=== PATIENT | male | born 1945 | race Caucasian/White ===

== ENCOUNTER 2017-03-18 10:09 | Inpatient (IN) | payer OTHER, MEDICARE ==
[~2017-03-18] VITALS: Ht 182.9 cm; Wt 63.0 kg
[2017-03-18] VITALS (8 sets, daily range): BP systolic 110–150; BP diastolic 68–92; PULSE 65–102; TEMP 36.3–36.7; O2SAT 90–98; BMI 18.1; BMI 19.0
[2017-03-18] MEDS ORDERED: POLYETHYLENE (MIRALAX) 17 GM PACK PO PRN (11:00)
[2017-03-18] MEDS ORDERED: ONDANSETRON INJ 2 MG/ML 2 ML VIAL IV PRN (11:00)
[2017-03-18] MEDS ORDERED: MAGNESIUM HYDROXIDE SUSP 30 ML UDC PO PRN (11:00)
[2017-03-18] MEDS ORDERED: ALUMINUM/MAGNESIUM/SIMETH (MAALOX MAX) 30 ML UDC PO PRN (11:00)
[2017-03-18] MEDS ORDERED: PATIENT'S ALLERGY INFO NEEDS ENTERED SCH (11:15)
[2017-03-18] MEDS ORDERED: ACETAMINOPHEN 325 MG TAB PO PRN (11:45)
[2017-03-18] MEDS ORDERED: PROC1TAB5 PO (12:09)
[2017-03-18] MEDS ORDERED: METO25TA56 PO (12:09)
[2017-03-18] MEDS ORDERED: SENNTAB23 PO (12:09)
[2017-03-18] MEDS ORDERED: MAGN400T6 PO (12:09)
[2017-03-18] MEDS ORDERED: OXYC-609 PO (12:09)
[2017-03-18] MEDS ORDERED: NAPR1TAB9 PO (12:09)
--- NOTE | 2017-03-18 12:44 | History and Physical ---
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 The patient also notes that he cannot lay flat. This makes his symptoms worse. He denies any other associated symptoms such as cough, fever, chest pain or pressure. He denies any dizziness. He denies any known history of heart disease. He reports eating and drinking normally. He is moving his bowels, but does note some constipation. Last bowel movement was yesterday. The patient was supposed to have his third round of chemotherapy today. He was directly admitted the hospital from his oncologist office with his complaint of shortness of breath. Past Medical/Surgical History Metastatic prostate cancer to lungs and liver Hypertension Family History Father in his 80s of cardiac arrest Social History Smoking Status: Former Smoker Alcohol Use: none Marital Status: Housing status: lives with significant other Allergies Coded Allergies: No Known Allergies (Unverified , 03/18/17) Home Medications Scheduled Magnesium Oxide (Mag-Ox), 400 MG PO DAILY Metoprolol Tartrate (Lopressor) (Lopressor), 1 TAB PO BID Naproxen (Aleve), 220 MG PO BID Prochlorperazine Maleate (Compazine), 1 TAB PO Q6 Sennosides-Docusate Sodium (Stool Softener), PO HS Scheduled PRN Oxycodone HCl (Oxycodone HCl), MG PO Q6H PRN for Pain Review of Systems 10 system review performed and negative unless noted in HPI or below Physical Exam Vital Signs Date Time Temp Pulse Resp B/P Pulse Ox O2 Delivery O2 Flow Rate FiO2 03/18/17 11:25 36.3 65 22 110/68 92 Room Air General Appearance: + mild distress (mildly dyspneic) Head: normocephalic Eyes: EOMI ENT: + pertinent finding (oral mucosa fairly moist.) Neck: no JVD Respiratory/Chest: + pertinent finding (diminished breath sounds at the bases bilaterally. No wheezing, rhonchi or crackles auscultated.) Cardiovascular: regular rate, rhythm Abdomen/GI: normal bowel sounds, non tender, soft Extremities/Musculoskelatal: no calf tenderness, no pedal edema Neurologic/Psych: no motor/sensory deficits, oriented x 3 Skin: warm/dry Diagnostics Laboratory Results Results Past 24 Hours Test 03/18/17 12:22 Range/Units Impression Assessment and Plan 71-year-old male directly admitted to the hospital from his oncologist office with complaints of dyspnea on exertion and orthopnea. shortness of breath-unfortunately concerning for malignant effusion -Admit to oncology floor -Check chest [id number] results, patient may need evaluation from thoracic surgery if the patient does indeed have a drainable malignant effusion -possibly check echo HTN -Continue metoprolol 75 mg BID Chronic kidney disease-Baseline creatinine appears to be around 1.5. The patient has been taking naproxen twice daily. -hold NSAIDS -PRP in AM DVT prophylaxis -Lovenox 40 mg subQ daily -TEDS, SCDs CODE STATUS -LEVEL V DO NO RESUSCITATE i personally examined pt and verified all jansen points w A [facility] PAC sob - mostly orthopnea. sent over by oncology due to worsening sob. CXR c/w lung mets (known) and malignant effusion (appears new) question of infiltrate, but shows no s/s of pneumonia/infectious pathology - check CRP and procalcitonin to confirm no need for abx malignant effusion - consult thoracic - d/w thoracic team. 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 Y/N: Yes Risk Level: Moderate Given or contraindicated: Enoxaparin (Lovenox)SQ, T.E.D. Stockings, SCD's
[2017-03-18] MEDS ORDERED: POTASSIUM CHLORIDE 10 MEQ TABCR PO ONE (12:45)
[2017-03-18] MEDS ORDERED: IV FLUIDS COMPLETED PRN (12:45)
--- NOTE | 2017-03-18 13:22 | DIAGNOSTIC IMAGING REPORT ---
CHEST 2 VIEWS ROUTINE CLINICAL HISTORY: shortness of breath COMPARISON STUDY: Outside CT scan dated 01-30 FINDINGS: The heart is borderline enlarged. There are bilateral pleural effusions left greater than right. There are multiple pulmonary nodules, statistically secondary to metastatic disease. There is a right perihilar airspace opacity, possibly representing a pneumonia..[ IMPRESSION: 1. Multiple pulmonary nodules, statistically secondary to metastatic disease 2. Bilateral pleural effusions left greater than right 3. Right perihilar airspace opacities possibly representing a pneumonia. Clinical and radiographic follow-up is recommended Electronically signed by: Stephen Avalos M.D. 03/18/2017 1:21 PM Dictated Date/Time: 03/18/2017 1:19 PM
[2017-03-18 13:54] LABS: INR 1.1 (0.9-1.1); PROTHROMBIN TIME (PATIENT) 11.4 SECONDS (9.0-12.0)
--- NOTE | 2017-03-18 15:34 | DIAGNOSTIC IMAGING REPORT ---
CHEST ONE VIEW PORTABLE CLINICAL HISTORY: Post thoracentesis x-ray COMPARISON STUDY: 03/18/2017 FINDINGS: There are multiple pulmonary nodules. There is a 55 mm right perihilar airspace opacity. There is elevation the right hemidiaphragm. There is evidence for interval left-sided thoracentesis. There is a left basilar pneumothorax with 35 mm of maximal pleural separation. A small residual left pleural effusion is suspected. There is a small subchronic right pleural effusion.[ IMPRESSION: Interval left-sided thoracentesis. 35mm left basilar pneumothorax. Electronically signed by: Stephen Avalos M.D. 03/18/2017 3:33 PM Dictated Date/Time: 03/18/2017 3:31 PM
--- NOTE | 2017-03-18 15:36 | OPERATIVE REPORT ---
DATE OF OPERATION: 03/18/2017 PROCEDURE NOTE DATE OF PROCEDURE: 03/18/2017. REASON FOR PROCEDURE: Left pleural effusion in a patient with prostate carcinoma which is metastatic. SURGEON: Dr. Vance. PATROL CONDUCTOR: Rishi Thurston PA-C. ANESTHESIA: Local. SPECIFICS OF PROCEDURE: With the patient seated an ultrasound was used to find a window in the left posterolateral and inferior aspect of the chest. He was prepped and draped in the usual sterile fashion. After appropriate timeout had been called a 25 gauge needle and 1% Xylocaine was used to raise the skin wheal. A large bore needle was used to anesthetize the deeper subcutaneous tissues and free flowing fluid was obtained. A guidewire was inserted through the needle and needle removed. A dilator was gently slid over the guidewire and removed and a triple lumen catheter was slid in 17 cm and 1000 mL of a light yellow fluid was drained. We could not get any more fluid and we removed the catheter. There was no bleeding. He was already breathing better by the conclusion of the case. He tolerated it very well. A chest x-ray is pending. I attest to the content of the Intraoperative Record and any orders documented therein. Any exceptio ns are noted below.
--- NOTE | 2017-03-18 15:38 | SURGICAL CONSULTATION ---
DATE OF CONSULTATION: 03/18/2017 REASON FOR CONSULTATION: Left pleural effusion. 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 The patient was found to have metastatic prostate cancer in his lungs and liver and had increasing dyspnea on exertion with orthopnea. He cannot lay flat. He denies pain. He has lost weight. Denies any GI symptoms except for some constipation. He is undergoing chemotherapy for his metastatic prostate cancer. In addition, he has a very large mass on his right flank. I assume this is due to metastatic cancer has been biopsied, although the patient's tells me that this is a cancer and they are not sure where it is from. I have been asked to comment on a left pleural effusion. Interestingly enough, I reviewed the CT scan of the abdomen and chest from 2 months ago which showed a right-sided effusion which was mild to moderate. He really had no left-sided fluid at that time. A chest x-ray done today shows a large layering left pleural effusion. I was asked to evaluate him for management of this effusion. PAST MEDICAL HISTORY: 1. Metastatic prostate carcinoma. 2. Metastases to the lung and liver. 3. Hypertension. PAST SURGICAL HISTORY: 1. Appendectomy. 2. Biopsy of right flank mass. MEDICATIONS: 1. Magnesium oxide. 2. Stool softeners. 3. Lopressor. 4. Naprosyn. 5. Compazine. ALLERGIES: No known drug allergies. SOCIAL HISTORY: The patient lives with his of almost 50 years. He had 1 son who was killed in a traumatic accident at age 24. The patient has never smoked cigarettes. He was in the [employer] for 3 years. 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 He likes to fish. He also is an avid follower of [employer] football. FAMILY MEDICAL HISTORY: The patient's father in his 80s and had coronary artery disease and myocardial infarction. His son a traumatic at age 24. He was unsure of the etiology of his mother's . REVIEW OF SYSTEMS: The patient states he has lost 15-20 pounds in the last 6 months. He has some swelling in his lower extremities, although he has very little today. He has been quite short of breath. He denies chest pain. He has had no fevers. He has some mild arthritic pain. NEUROLOGIC: Denies any symptoms such as amaurosis fugax, transient ischemic attack. He has had no skin breakdown. He has had no visual or auditory symptoms. PHYSICAL EXAMINATION: GENERAL: This is a 6 foot, 133-pound male who is awake, alert and conversant. He is jovial. HEENT: His extraocular movements are intact. Sclerae are anicteric. He appears to have some very mild exophthalmos in the left eye. He has no nasolabial flattening. His teeth are in poor repair. I do not see any obvious abscesses. He has no oral mucosal lesions. NECK: Supple. I do not detect any supraclavicular or cervical lymphadenopathy. He has no carotid bruits. He has no neck vein distention. LUNGS: Upon evaluation of his lungs, he has decreased breath sounds in the left base, relative to the right. He has a large mass measuring well over 10 cm of his right flank area above his iliac crest. There is a surgical incision which is well healed on top it. ABDOMEN: Otherwise soft. He has good bowel sounds. I do not detect evidence of abdominal aortic aneurysm. HEART: Has a regular rate and rhythm of his heart. EXTREMITIES: He has trace edema to his lower extremities and I can palpate dorsalis pedis pulses nicely. He has a lipoma in his left proximal biceps area. NEUROLOGICAL: He is awake, alert and oriented, has no obvious focal deficits. DATA: I reviewed a chest x-ray and he has a large left pleural effusion which is new. He also has multiple pulmonary nodules. ASSESSMENT AND PLAN: 1. Left pleural effusion in a patient with metastatic prostate carcinoma. We are going to do a thoracentesis and send it off. Should this reaccumulate, we will then consider a PleurX catheter. I am also going to order a CT scan after I drain him. He was unable to lay flat for CT scan earlier.
[2017-03-18] MEDS ORDERED: LEVALBUTEROL 0.63MG/3 ML NEB INH PRN (15:45)
[2017-03-18 16:06] LABS: PLEURAL FLUID TOTAL PROTEIN 2.8 g/dl
[2017-03-18 16:42] LABS: PLEURAL FLUID APPEARANCE CLEAR; PLEURAL FLUID COLOR STRAW; PLEURAL FLUID MONONUC RELAT 95.4 %; PLEURAL FLUID POLYNUC 4.6 %; PLEURAL FLUID SOURCE LEFT LUNG; PLEURAL FLUID WBC (A) 602 /uL
[2017-03-18] MEDS ORDERED: ENOXAPARIN 40 MG/0.4 ML SYR SQ SCH (17:00)
[2017-03-18] MEDS: PROCHLORPERAZINE MALEATE 10 MG TAB PO SCH (17:17)
[2017-03-18] MEDS ORDERED: NURSING VERBAL MED ORDER ONE (20:45)
[2017-03-18] MEDS ORDERED: ALBUT/IPRATROP 3MG/0.5MG NEB 3 ML VIAL INH PRN (20:45)
--- NOTE | 2017-03-18 20:52 | DIAGNOSTIC IMAGING REPORT ---
SINGLE VIEW CHEST CLINICAL HISTORY: Follow-up pneumothorax. FINDINGS: An AP, portable, upright chest radiograph is compared to study early the same day correlation is made with PET/CT dated 05/20/2016. 03/18/2017. The examination is degraded by portable technique and patient rotation. The heart is top normal for projection. There is atherosclerotic calcification of the thoracic aorta. Advanced emphysema and chronic interstitial thickening is similar to previous. Multifocal pulmonary metastatic disease in the right perihilar lesion are similar appearance to previous. There is a large left pneumothorax. This is increased in size from previous, and there is marked atelectasis of the left lung. Small pleural effusions are noted. The skeletal structures are osteopenic. The bony thorax is grossly intact. IMPRESSION: 1. There is a large left pneumothorax, significantly increased in size from earlier today. There is marked atelectasis of the left lung. Developing tension pneumothorax is not excluded. 2. Small pleural effusions. 3. Emphysema and multifocal pulmonary metastatic disease are again noted. Electronically signed by: Star Fernandes M.D. 03/18/2017 8:51 PM Dictated Date/Time: 03/18/2017 8:47 PM
[2017-03-18] MEDS ORDERED: LIDOCAINE HCL 1% 20 ML VIAL ONE (22:25)
[2017-03-18] MEDS: DOCUSATE SODIUM/SENNA 50/8.6MG TAB PO SCH (22:56)
[2017-03-18] MEDS: METOPROLOL TARTRATE 25 MG TAB PO SCH (22:57)
--- NOTE | 2017-03-18 23:04 | DIAGNOSTIC IMAGING REPORT ---
SINGLE VIEW CHEST CLINICAL HISTORY: Pneumothorax. Chest tube placement. FINDINGS: An AP, portable, upright chest radiograph is compared to studies performed earlier the same day 03/18/2017 and correlation is made with PET/CT dated 05/20/2016. The examination is degraded by portable technique and patient rotation. The heart is top normal for projection. There is atherosclerotic calcification of the thoracic aorta. Advanced emphysema and chronic interstitial thickening is similar to previous. Multifocal pulmonary metastatic disease and a right perihilar lesion are similar appearance to previous. A left sided chest tube is in place. The tip terminates near the apex. There has been significant decrease in size of the pneumothorax as compared to previous. A small residual pneumothorax is seen at the left lung base. Atelectasis is present at the left lung base. Small pleural effusions are noted. The skeletal structures are osteopenic. The bony thorax is grossly intact. Subcutaneous gas is noted along the left chest wall. IMPRESSION: 1. A left-sided chest tube has been placed. The left sided pneumothorax has significantly decreased in size, with only a small residual pneumothorax now seen at the left lung base. 2. Small pleural effusions. 3. Emphysema and multifocal pulmonary metastatic disease are again noted. Electronically signed by: Star Fernandes M.D. 03/18/2017 11:02 PM Dictated Date/Time: 03/18/2017 11:00 PM
[2017-03-19] VITALS (8 sets, daily range): BP systolic 92–136; BP diastolic 59–84; PULSE 68–88; TEMP 35.9–36.7; O2SAT 92–95; BMI 19.1
[2017-03-19] MEDS: PROCHLORPERAZINE MALEATE 10 MG TAB PO SCH ×5 (00:30→23:49)
--- NOTE | 2017-03-19 03:27 | OPERATIVE REPORT ---
DATE OF OPERATION: 03/18/2017 PREOPERATIVE DIAGNOSIS: Enlarging left pneumothorax. POSTOPERATIVE DIAGNOSIS: Same. PROCEDURE: Insertion of a 24-Sudanese left thoracostomy tube. SURGEON: Dr. Vance. ANESTHESIA: Local. SPECIFICS OF PROCEDURE: The patient in a supine position with his left arm raised, at approximately sixth interspace in the anterior axillary line. Skin wheal was raised, a 25 gauge needle, 1% Xylocaine after he had been prepped and draped in usual sterile fashion. A larger needle was used to go over the rib and anesthetized the deeper muscle tissues in the pleura. When air was aspirated back, a guidewire was inserted through the needle and needle removed. A 1 cm incision was made. The dilator was slid over the guidewire and then removed and a 24-Sudanese chest tube with a trocar was slid over the guidewire and the guidewire removed with the inner cannula. The patient tolerated this well. There was a cole of air. This was sutured in with heavy silk suture. There was an intermittent air leak, but the patient had immediate response with decreased shortness of breath and pain. Antimicrobial dressing was placed and this was taped into place. Chest x-ray is pending at this time. He tolerated it well. I attest to the content of the Intraoperative Record and any orders documented therein. Any exceptio ns are noted below.
[2017-03-19] MEDS: OXYCODONE/ACETAMINOPHEN 5-325 TAB PO PRN ×3 (05:45→16:45)
[2017-03-19 06:40] LABS: BUN/CREATININE RATIO 16.3 (10-20); CALCIUM 8.4 mg/dl (8.5-10.1); CREATININE 2.2 mg/dl (0.60-1.40); POTASSIUM 4.1 mmol/L (3.5-5.1)
--- NOTE | 2017-03-19 07:19 | DIAGNOSTIC IMAGING REPORT ---
CHEST ONE VIEW PORTABLE CLINICAL HISTORY: pleural effusion COMPARISON STUDY: 03/18/2017 FINDINGS: The cardiac and mediastinal contours remain stable. There is a left-sided chest tube. There are right perihilar and basal airspace opacities. There are nodular opacities the left lung base. Diffuse underlying pulmonary nodularity is suspected, consistent with the patient's known metastatic disease.. There is subcutaneous emphysema on the left. There is no pneumothorax.[ IMPRESSION: 1. Multifocal nodularity, consistent with the patient's known metastatic disease 2. Left-sided chest tube with increasing subcutaneous emphysema 3. Airspace opacities within the right perihilar region and right lower lung base, similar to the preceding study Electronically signed by: Stephen Avalos M.D. 03/19/2017 7:17 AM Dictated Date/Time: 03/19/2017 7:13 AM
[2017-03-19] MEDS: METOPROLOL TARTRATE 25 MG TAB PO SCH ×2 (08:00→19:56)
[2017-03-19] MEDS: MAGNESIUM OXIDE 400 MG TAB PO SCH (08:01)
--- NOTE | 2017-03-19 08:06 | SURGERY PROGRESS NOTE ---
DATE: 03/19/2017 DATE: 03/19/2017. Mr. Fuller was seen today. He tolerated chest tube insertion last night very well. I do not see an air leak today. He does have a small amount of subcutaneous emphysema. He drained 350 mL total of fluid last night, but he does not have an air leak. He is on room air and appears comfortable. We are going to push him to ambulate today with his walker. I discussed this case with Dr. Coles and due to his poor performance status and the nature of his malignancy, it is doubtful that any therapy will be offered.
--- NOTE | 2017-03-19 08:52 | Hospitalist Progress Note ---
Hospitalist Progress Note Date of Service March 19, 2017. (Danielle Engel ., PA-C) Subjective Pt evaluation today including: conversation w/ patient, physical exam, chart review, lab review, review of studies, review of inpatient medication list Voiding: no voiding problems, no incontinence Patient states he is currently feeling well. SOB has greatly improved. Admits to 8/10 pain at procedure site; Percocet order, discussed with patient about additional pain medications, wants to continue with Percocet only for now. Concerned about worsening LLE swelling over the last 1-2 days. Denies h/o of lower extremity swelling. Denies h/o DVT/PE. Aware of Dr. Medrano orders of ambulation. Patient admits to increased weakness with ambulation over the last couple of months. Patient denies any fever, chills, sweats, lightheadedness, dizziness, vision changes, CP, palpitations, wheezing, cough, abdominal pain, nausea, vomiting, diarrhea, urinary symptoms, melena, numbness/tingling, muscle/ joint pain, anxiety/depression, active bleeding, or new skin discoloration/ changes. (Danielle Engel ., PA-C) Medications Current Inpatient Medications Medications (Trade) Dose Ordered Sig/Gisel Route Start Time Stop Time Status Last Admin Dose Admin Al Hydrox/Mg Hydrox/Simethicone (Maalox Max Susp) 15 ml Q4H PRN PO 03/18/17 11:00 04/17/17 10:59 Magnesium Hydroxide (Milk Of Magnesia Susp) 30 ml Q6H PRN PO 03/18/17 11:00 04/17/17 10:59 Polyethylene (Miralax Powder Packet) 17 gm DAILY PRN PO 03/18/17 11:00 04/17/17 10:59 Ondansetron HCl (Zofran Inj) 4 mg Q6H PRN IV 03/18/17 11:00 04/17/17 10:59 Enoxaparin Sodium (Lovenox Inj) 40 mg Q24H SQ 03/18/17 17:00 04/17/17 16:59 03/18/17 17:17 40 MG Acetaminophen (Tylenol Tab) 650 mg Q4H PRN PO 03/18/17 11:45 04/17/17 11:44 Miscellaneous (Iv Fluids Completed) 1 ea PRN PRN N/A 03/18/17 12:45 03/18/18 12:44 Magnesium Oxide (Mag-Ox Tab) 400 mg DAILY PO 03/19/17 08:00 04/18/17 07:59 03/19/17 08:01 400 MG Prochlorperazine Maleate (Compazine Tab) 10 mg Q6 PO 03/18/17 18:00 04/17/17 17:59 03/19/17 05:25 10 MG Senna/Docusate Sodium (Senokot S Tab) 1 tab HS PO 03/18/17 21:00 04/17/17 20:59 03/18/17 22:56 1 TAB Metoprolol Tartrate (Lopressor Tab) 75 mg BID PO 03/18/17 20:00 04/17/17 19:59 03/18/17 22:57 75 MG Levalbuterol (Xopenex 0.63 Mg/ 3 Ml Neb) 0.63 mg Q6R PRN INH 03/18/17 15:45 04/17/17 15:44 03/18/17 19:27 0.63 MG Albuterol/ Ipratropium (Duoneb) 3 ml Q2H PRN INH 03/18/17 20:45 04/17/17 20:44 03/18/17 21:23 3 ML Oxycodone/ Acetaminophen (Percocet 5-325mg Tab) @ Q4H PRN PO 03/18/17 22:45 04/01/17 22:44 03/19/17 05:45 1 TAB (Danielle Engel, MIRIAMC) Objective Vital Signs Date Time Temp Pulse Resp B/P Pulse Ox O2 Delivery O2 Flow Rate FiO2 03/19/17 07:51 36.3 68 20 92/59 93 03/19/17 03:59 35.9 70 20 136/84 93 Room Air 03/19/17 00:18 36.2 78 20 106/65 92 Room Air 03/19/17 00:00 Room Air 03/18/17 22:52 36.4 89 18 112/71 98 Room Air 03/18/17 21:23 97 18 98 Nasal Cannula 1.0 03/18/17 20:21 36.7 102 20 150/92 94 Nasal Cannula 2.0 03/18/17 19:27 78 18 93 Room Air 03/18/17 16:07 77 16 94 Room Air 03/18/17 16:00 90 Room Air 03/18/17 14:46 36.7 81 16 133/81 90 Room Air 03/18/17 11:25 36.3 65 22 110/68 92 Room Air (Danielle Engel ., PA-C) Physical Exam General Appearance: no apparent distress, + thin Eyes: normal inspection, PERRL ENT: hearing grossly normal Neck: supple Respiratory/Chest: lungs clear, no respiratory distress, no accessory muscle use Cardiovascular: regular rate, rhythm Abdomen: normal bowel sounds, non tender, soft Extremities: no calf tenderness, + swelling (+1 pitting edema of LLE ) Neurologic/Psychiatric: alert, normal mood/affect, oriented x 3 Skin: warm/dry, no rash, + pallor (Danielle Engel ., PA-C) Laboratory Results Last 24 Hours Test 03/18/17 13:35 03/18/17 14:00 03/18/17 15:00 03/19/17 05:31 Prothrombin Time 11.4 SECONDS Prothromb Time International Ratio 1.1 Activated Partial Thromboplast Time 26.8 SECONDS Partial Thromboplastin Ratio 1.0 C-Reactive Protein 11.00 mg/dl Procalcitonin 0.37 ng/ml Pleural Fluid pH 7.51 Sodium Level 137 mmol/L Potassium Level 4.1 mmol/L Chloride Level 100 mmol/L Carbon Dioxide Level 28 mmol/L Anion Gap 9.0 mmol/L Blood Urea Nitrogen 36 mg/dl Creatinine 2.20 mg/dl Est Creatinine Clear Calc Drug Dose 27.1 ml/min Estimated GFR () 33.2 Estimated GFR (Non- 28.7 BUN/Creatinine Ratio 16.3 Random Glucose 131 mg/dl Calcium Level 8.4 mg/dl (Danielle Engel ., PA-C) Assessment and Plan 71-year-old male directly admitted to the hospital from his oncologist office with complaints of dyspnea on exertion and orthopnea. SOB, likely secondary to L pleural effusion from metastatic carcinoma: - Admit to oncology floor - Consult thoracic surgery, appreciate recommendations -- Thoracentesis on 03/19 with draining of 1000 mL- pleural fluid studies/ pathology pending -- Left thoracostomy tube secondary to left pneumothorax from thoracentesis -- Ambulation in hallways every shift - Percocet PRN q4 hrs for pain management - DuoNebs PRN Metastatic prostate cancer to lungs and liver: - Follows w/ Dr. Coles- oncology consulted, appreciate recommendations -- Suggest Palliative care consult- consulted, appreciate recommendations LLE swelling: - Check LLE U/S due to h/o malignancy and decreased activity level HTN: Continue Metoprolol 75 mg BID BLAIR on CKD, stage III-IV- baseline Cr ~ 1.5: - Hold NSAIDS - Follow PRP GI Prophylaxis: Maalox PRN, IV Zofran PRN, Colace and/or Milk of Mag PRN DVT prophylaxis: Lovenox 40 mg subQ daily, TEDS, SCDs CODE STATUS: LEVEL V DO NO RESUSCITATE Dispo: From home, lives with - PT/OT evaluations pending (Danielle Engel ., PA-C) PA Physician Supervision Note: I interviewed and examined the patient. Discussed with Danielle Engel PAC and agree with findings and plan as documented in the note. Any exceptions or clarifications are listed here: None 71 M with metastatic prostate cancer, malignant pleural effusion, s/p thoracentesis--> pneumothorax, and now chest tube palliative care consult and following Pt is understanding of condition vitals noted right chest decreased breath sounds supportive care for pneumothorax, coordinate symptom relief with palliative care Documented By: Matt Jacome (Matt Jacome M.D.)
--- NOTE | 2017-03-19 09:39 | Oncology Consultation ---
Oncology/Heme Consultation Date of Consultation: March 19, 2017. Attending Physician: Marvin Bliss D.O. Reason for Consultation: History of carcinoma unknown primary History of Present Illness Mr. Fuller is a 71-year-old gentleman who lives in at [facility]. He was new to our clinic on February 19. He was transferred essentially from [facility]. His oncologic story is that he has had a gradually enlarging right lower thoracic chest wall mass for the past few months. 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 A number of histochemical stains were done but ultimately it was felt to be the same that is a carcinoma of unknown primary. Interestingly along the way the patient had a very high alpha-fetoprotein. In addition he has had a very mild elevation in his calcium. He is always demonstrated very mild renal insufficiency with elevations in his creatinine of 1.5-1.7. He was treated in our clinic with a combination of gemcitabine and low- dose cis-upper sk[place] with the last treatment being given March 04. He was scheduled to be retreated again yesterday when it was clear that he had declined clinically and he also complained of severe shortness of breath. In fact he could not lie back without losing his breath. His performance status is easily graded at 3.0 now. He states he moves around the house but just in the examining room he had to be helped from the wheelchair he was in to the examining table and was very unsteady on his feet. He denied fever. His pain seems fairly well under control. CT scans that have been done and are downloaded into our system show osseous metastasis as well as pulmonary and liver involvement. Past Medical/Surgical History Renal sufficiency Carcinoma unknown primary new left Pleural effusion Family History His brother has a history of prostate carcinoma and there is a history of skin cancer in the family Social History Former smoker. He denies significant alcohol usage Smoking Status: Former Smoker Alcohol Use: none Marital Status: Allergies Coded Allergies: No Known Allergies (Unverified , 03/18/17) Home Medications Scheduled Magnesium Oxide (Mag-Ox), 400 MG PO DAILY Metoprolol Tartrate (Lopressor) (Lopressor), 1 TAB PO BID Naproxen (Aleve), 220 MG PO BID Prochlorperazine Maleate (Compazine), 1 TAB PO Q6 Sennosides-Docusate Sodium (Stool Softener), PO HS Scheduled PRN Oxycodone HCl (Oxycodone HCl), MG PO Q6H PRN for Pain Current Inpatient Medications Current Inpatient Medications Medications (Trade) Dose Ordered Sig/Gisel Route Start Time Stop Time Status Last Admin Dose Admin Al Hydrox/Mg Hydrox/Simethicone (Maalox Max Susp) 15 ml Q4H PRN PO 03/18/17 11:00 04/17/17 10:59 Magnesium Hydroxide (Milk Of Magnesia Susp) 30 ml Q6H PRN PO 03/18/17 11:00 04/17/17 10:59 Polyethylene (Miralax Powder Packet) 17 gm DAILY PRN PO 03/18/17 11:00 04/17/17 10:59 Ondansetron HCl (Zofran Inj) 4 mg Q6H PRN IV 03/18/17 11:00 04/17/17 10:59 Enoxaparin Sodium (Lovenox Inj) 40 mg Q24H SQ 03/18/17 17:00 04/17/17 16:59 03/18/17 17:17 40 MG Acetaminophen (Tylenol Tab) 650 mg Q4H PRN PO 03/18/17 11:45 04/17/17 11:44 Miscellaneous (Iv Fluids Completed) 1 ea PRN PRN N/A 03/18/17 12:45 03/18/18 12:44 Magnesium Oxide (Mag-Ox Tab) 400 mg DAILY PO 03/19/17 08:00 04/18/17 07:59 03/19/17 08:01 400 MG Prochlorperazine Maleate (Compazine Tab) 10 mg Q6 PO 03/18/17 18:00 04/17/17 17:59 03/19/17 05:25 10 MG Senna/Docusate Sodium (Senokot S Tab) 1 tab HS PO 03/18/17 21:00 04/17/17 20:59 03/18/17 22:56 1 TAB Metoprolol Tartrate (Lopressor Tab) 75 mg BID PO 03/18/17 20:00 04/17/17 19:59 03/18/17 22:57 75 MG Levalbuterol (Xopenex 0.63 Mg/ 3 Ml Neb) 0.63 mg Q6R PRN INH 03/18/17 15:45 04/17/17 15:44 03/18/17 19:27 0.63 MG Albuterol/ Ipratropium (Duoneb) 3 ml Q2H PRN INH 03/18/17 20:45 04/17/17 20:44 03/18/17 21:23 3 ML Oxycodone/ Acetaminophen (Percocet 5-325mg Tab) @ Q4H PRN PO 03/18/17 22:45 04/01/17 22:44 03/19/17 05:45 1 TAB Review of Systems Constitutional: Negative for, night sweats, or fever. His states his appetite is quite good. He appears to have lost quite a bit of weight amount unknown Eyes: Negative for event change of vision ENT: Negative for epistaxis, nasal discharge, sore throat, or deafness Cardiovascular: Negative for chest pain, palpitations, dizziness, diaphoresis Respiratory: Positive for shortness of breath negative for hemoptysis negative for fever Gastrointestinal: Negative for diarrhea, hematemesis, melena, nausea, vomiting , or dyspepsia Integumentary (skin): Negative for rash or jaundice discoloration Genitourinary: Negative for urinary frequency, hematuria, or dysuria Neurological: Negative for weakness, seizure activity, headache, or dizziness Lymphatic/Hematologic: Negative for petechiae, bleeding or new adenopathy Musculoskeletal: Negative for new joint or back pain. He continues to have a very protuberant at least 7 or 8 cm mass that extends from the right chest wall Allergic/Immunologic: Negative for unusual rash or pruritis. Physical Exam Date Time Temp Pulse Resp B/P Pulse Ox O2 Delivery O2 Flow Rate FiO2 03/19/17 07:51 36.3 68 20 92/59 93 03/19/17 03:59 35.9 70 20 136/84 93 Room Air 03/19/17 00:18 36.2 78 20 106/65 92 Room Air 03/19/17 00:00 Room Air 03/18/17 22:52 36.4 89 18 112/71 98 Room Air 03/18/17 21:23 97 18 98 Nasal Cannula 1.0 03/18/17 20:21 36.7 102 20 150/92 94 Nasal Cannula 2.0 03/18/17 19:27 78 18 93 Room Air 03/18/17 16:07 77 16 94 Room Air 03/18/17 16:00 90 Room Air 03/18/17 14:46 36.7 81 16 133/81 90 Room Air 03/18/17 11:25 36.3 65 22 110/68 92 Room Air Constitutional: vitals are stable. Thin pleasant gentleman oxygen ongoing. Sallow appearing. Performance status easily graded at 3.0 ECOG scale Eyes: Eyes are TUNDE EOMI without conjuctival erythema or icterus. ENT: External examination was negative for masses. Neck: Negative for masses or palpable thyromegaly Respiratory: Lung sounds were generally clear bilaterally when seen today and is status post thoracentesis. I chest tube is now in place in the left chest Cardiovascular: Heart was RRR without significant murmur, gallops aoe rubs Gastrointestinal: No palpable hepatic or splenomegaly. The abdomen was soft with normal bowel sounds. Lymphatic system: there was no palpable peripheral lymphadenopathy Musculoskeletal System: The musculoskeletal system seemed concordant with age. Skin: The skin was negative for jaundice. Sallow appearing Neurologic exam: The exam was negative for any focal findings. Deep tendon reflexes were equal and symmetrical. Psychiatric exam: Was essentially negative with normal mood and effect. Extremities: Negative for significant edema Laboratory Results Last 24 Hours Test 03/18/17 13:35 03/18/17 14:00 03/18/17 15:00 03/19/17 05:31 Prothrombin Time 11.4 SECONDS Prothromb Time International Ratio 1.1 Activated Partial Thromboplast Time 26.8 SECONDS Partial Thromboplastin Ratio 1.0 C-Reactive Protein 11.00 mg/dl Procalcitonin 0.37 ng/ml Pleural Fluid pH 7.51 Sodium Level 137 mmol/L Potassium Level 4.1 mmol/L Chloride Level 100 mmol/L Carbon Dioxide Level 28 mmol/L Anion Gap 9.0 mmol/L Blood Urea Nitrogen 36 mg/dl Creatinine 2.20 mg/dl Est Creatinine Clear Calc Drug Dose 27.1 ml/min Estimated GFR () 33.2 Estimated GFR (Non- 28.7 BUN/Creatinine Ratio 16.3 Random Glucose 131 mg/dl Calcium Level 8.4 mg/dl Assessment & Plan He was admitted from our clinic yesterday because of the severe shortness of breath. This is a carcinoma of unknown primary possibly adenocarcinoma with diffuse metastatic disease. 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 He has received small doses of cis- upper [place] on 2 occasions along with gemcitabine at a time when his creatinine was 1.5-1.6 and an acceptable GFR. Yesterday he was more short of breath. He has known pulmonary, osseous, as well as liver involvement. Yesterday's chest x- ray reflected a new left pleural effusion that has been drained. It does not appear to be infected. Cytologies are currently pending. His performance status has deteriorated quite a bit. The mass on his back although feeling perhaps slightly softer remains the same in dimensions. We will await the cytology. I suspect that it does represent progression of disease. This along with his overall performance status would then preclude further chemotherapy in that further therapy would not be helpful with a predictable worsening of his quality of life. Purely supportive measures and approach should be pursued. I brought this up to he and his today. He seemed accepting for the concept of hospice however his was reluctant at this point. At this juncture I would ask palliative care to become involved. We will continue to follow with you
--- NOTE | 2017-03-19 11:33 | DIAGNOSTIC IMAGING REPORT ---
ULTRASOUND LEFT LOWER EXTREMITY VENOUS CLINICAL HISTORY: Left leg swelling. COMPARISON STUDY: No priors. TECHNIQUE: Real-time, grayscale, and color Doppler sonography of the deep veins of the left lower extremity was performed from the inguinal crease to the calf. Compression and augmentation were utilized. FINDINGS: There is no sonographic evidence of deep venous thrombosis identified in the left lower extremity. The common femoral, superficial femoral, and popliteal veins are patent and normally compressible. The greater saphenous vein and the profunda femoris vein at the junction with the common femoral vein are clear. The visualized calf veins are patent. IMPRESSION: There is no sonographic evidence of deep venous thrombosis identified in the left lower extremity. Electronically signed by: Star Fernandes M.D. 03/19/2017 11:32 AM Dictated Date/Time: 03/19/2017 11:32 AM
--- NOTE | 2017-03-19 16:01 | Palliative Care Consultation ---
Consultation Date of Consultation: March 19, 2017. Requesting Physician: Danielle Engel PA-C Attending Physician: Dr. Jacome Reason for Consultation: Goals of care History of Present Illness This 71 year old male patient presented to [facility] as a direct admit from oncologist's office with c/o increased SOB. Patient has a history of metastatic carcinoma, unknown origin, in the liver, lungs and bone. History obtained from record, patient, and his , Merlene. Apparently about a year ago the patient was diagnosed with what they thought was prostate cancer-- was on Lupron shots every three months and was to have radiation beads placed. He was doing fairly well until a few months ago when he was found to have a large right lower thoracic mass. Patient ended up going to [facility] where a biopsy of the mass and series of histochemical stains were done. Biopsy showed adenocarcinoma but a primary source could not be determined. He was transferred from [place] to home and care transferred to cancer center here at [facility]. He was started on low dose cis-yankton, last treatment was March 04. Unfortunately, the patient has had a significant decline and an increase in SOB. He was to have his next treatment yesterday, but was subsequently directly admitted to hospital from the oncologist's office. He underwent thoracentesis by Dr. Vance for a left pleural effusion, developed a pneumothorax after, and then had left chest tube placed. Pleural fluid pathology is pending-- could be malignant. Patient's prognosis is rather poor at this point. Due to his functional status, he will not be receiving any further chemotherapy. Palliative care consulted. I met with the patient and his , Merlene, in room 404. He is tired, but awake and oriented x4. C/o pain 6/10 in left side at pleur-X site. He otherwise has no symptoms, and was not having pain throughout this process before chest tube insertion. Patient states he knows his condition is terminal, agrees. is resistant to the idea of hospice as the stated, "That, in my eyes, just means you're giving up." I explained hospice more in depth, and they agreed that their goals are consistent with hospice philosophy. Patient's goal is to be at home for the remainder of his life, be as comfortable as possible, and to stay out of the hospital. Past Medical/Surgical History Medical History: Renal insufficiency Metastatic carcinoma, primary unknown Social History Smoking Status: Former Smoker History of Alcohol Use: Yes (beer occasionally) Marital Status: Housing Status: lives with significant other Review of Systems Constitutional: + weakness Respiratory: + dyspnea on exertion, No dyspnea at rest, No wheezing Cardiac: No chest pain, No edema Abdomen: No nausea, No pain, No vomiting Psychiatric: No anxiety Allergies Coded Allergies: No Known Allergies (Unverified , 03/18/17) Medications Current Inpatient Medications Medications (Trade) Dose Ordered Sig/Gisel Route Start Time Stop Time Status Last Admin Dose Admin Al Hydrox/Mg Hydrox/Simethicone (Maalox Max Susp) 15 ml Q4H PRN PO 03/18/17 11:00 04/17/17 10:59 Magnesium Hydroxide (Milk Of Magnesia Susp) 30 ml Q6H PRN PO 03/18/17 11:00 04/17/17 10:59 Polyethylene (Miralax Powder Packet) 17 gm DAILY PRN PO 03/18/17 11:00 04/17/17 10:59 Ondansetron HCl (Zofran Inj) 4 mg Q6H PRN IV 03/18/17 11:00 04/17/17 10:59 Acetaminophen (Tylenol Tab) 650 mg Q4H PRN PO 03/18/17 11:45 04/17/17 11:44 Miscellaneous (Iv Fluids Completed) 1 ea PRN PRN N/A 03/18/17 12:45 03/18/18 12:44 Magnesium Oxide (Mag-Ox Tab) 400 mg DAILY PO 03/19/17 08:00 04/18/17 07:59 03/19/17 08:01 400 MG Prochlorperazine Maleate (Compazine Tab) 10 mg Q6 PO 03/18/17 18:00 04/17/17 17:59 03/19/17 12:08 10 MG Senna/Docusate Sodium (Senokot S Tab) 1 tab HS PO 03/18/17 21:00 04/17/17 20:59 03/18/17 22:56 1 TAB Metoprolol Tartrate (Lopressor Tab) 75 mg BID PO 03/18/17 20:00 04/17/17 19:59 03/18/17 22:57 75 MG Levalbuterol (Xopenex 0.63 Mg/ 3 Ml Neb) 0.63 mg Q6R PRN INH 03/18/17 15:45 04/17/17 15:44 03/18/17 19:27 0.63 MG Albuterol/ Ipratropium (Duoneb) 3 ml Q2H PRN INH 03/18/17 20:45 04/17/17 20:44 03/18/17 21:23 3 ML Oxycodone/ Acetaminophen (Percocet 5-325mg Tab) @ Q4H PRN PO 03/18/17 22:45 04/01/17 22:44 03/19/17 12:55 1 TAB Enoxaparin Sodium (Lovenox Inj) 30 mg Q24H SQ 03/19/17 17:00 04/18/17 16:59 Enteral Nutritional Formula (Boost Plus Vanilla) 1 can TIDM PO 03/19/17 17:00 04/18/17 16:59 Physical Exam Date Time Temp Pulse Resp B/P Pulse Ox O2 Delivery O2 Flow Rate FiO2 03/19/17 13:15 94 Room Air 03/19/17 11:57 36.1 77 14 102/69 92 Room Air 03/19/17 08:00 Room Air 03/19/17 07:51 36.3 68 20 92/59 93 03/19/17 03:59 35.9 70 20 136/84 93 Room Air 03/19/17 00:18 36.2 78 20 106/65 92 Room Air 03/19/17 00:00 Room Air 03/18/17 22:52 36.4 89 18 112/71 98 Room Air 03/18/17 21:23 97 18 98 Nasal Cannula 1.0 03/18/17 20:21 36.7 102 20 150/92 94 Nasal Cannula 2.0 03/18/17 19:27 78 18 93 Room Air 03/18/17 16:07 77 16 94 Room Air 03/18/17 16:00 90 Room Air General Appearance: no apparent distress, + cachetic, + thin, + pertinent finding (chronically ill-appearing) ENT: hearing grossly normal Neck: supple, no JVD Respiratory: no respiratory distress, + decreased breath sounds (left > right) , + crackles (few, fine in left lower lobe), + pertinent finding (subq air around chest tube) Cardiovascular: regular rate, rhythm, no edema Abdomen: normal bowel sounds, non tender, soft Musculoskeletal: pertinent finding (deconditioned) Neurologic/Psychiatric: alert, normal mood/affect, oriented x 3 Skin: + jaundice Laboratory Results Last 24 Hours Test 03/19/17 05:31 Sodium Level 137 mmol/L Potassium Level 4.1 mmol/L Chloride Level 100 mmol/L Carbon Dioxide Level 28 mmol/L Anion Gap 9.0 mmol/L Blood Urea Nitrogen 36 mg/dl Creatinine 2.20 mg/dl Est Creatinine Clear Calc Drug Dose 27.1 ml/min Estimated GFR () 33.2 Estimated GFR (Non- 28.7 BUN/Creatinine Ratio 16.3 Random Glucose 131 mg/dl Calcium Level 8.4 mg/dl Assessment & Plan Palliative Performance Scale: 50 % Problem list: SOB Pain, right side at chest tube site Metastatic carcinoma- liver, lungs, bone. Unknown primary Left pleural effusion- ?malignant, s/p thoracentesis- pathology pending. Developed pneumothorax- s/p left chest tube insertion. Large right lower thoracic mass Low BMI Poor functional status, weakness Goals of care (Z51.5) Palliative care plan: discussed with patient, Merlene, and Dr. Jacome. -DNR/DNI per previous discussion. -Currently seeking any treatment that will make the patient feel better but also prolong life. However, patient and his understand that his cancer is terminal and that he is no longer going to receive chemotherapy or curative treatment. -Goal is for patient to be at home (adamant about not wanting a long term or to be in the hospital) after this hospitalization, to be comfortable, and to be as functional as possible. -Currently pain is 6/10. Patient does not want to be sedated by narcotics. His only pain is related to the left chest tube-- did not have any pain prior to hospitalization. He has Percocet on profile. Recommend adding lidoderm patches to the left side/ribs around chest tube site. Could add fentanyl patch 12mcg/hr if needed. -Dr. Vance following- unsure if Pleur-X would be needed in the future? -Long discussion about the hospice benefit and their philosophy of care. , Merlene, was initially resistant to this idea, but after our discussion she is considering it. -Patient denies any further symptoms. -No living will or POLST-- will continue this discussion Thank you kindly for this consult. I will continue to follow.
[2017-03-19] MEDS: ENOXAPARIN 30 MG/0.3 ML SYR SQ SCH (16:46)
[2017-03-19] MEDS: LIDODERM (LIDOCAINE) PATCH 5% TD SCH (16:59)
[2017-03-19] MEDS: BOOST PLUS VANILLA PO SCH ×2 (17:30)
[2017-03-19] MEDS ORDERED: HYDROmorphone INJ 1 MG/ML SYR IV STA (18:11)
[2017-03-19] MEDS ORDERED: LORAZEPAM 0.5 MG TAB PO PRN (18:15)
[2017-03-19] MEDS ORDERED: ACETAMINOPHEN IV 650 MG in EMPTY BAG 0 ML IV PRN (18:15)
[2017-03-19] MEDS ORDERED: HYDROmorphone INJ 1 MG/ML SYR IV PRN ×2 (18:15)
[2017-03-19] MEDS ORDERED: KETOROLAC TROMETHAMINE 15 MG/ML VIAL IV PRN (18:15)
[2017-03-19] MEDS ORDERED: LORAZEPAM 2 MG/ML 1 ML VIAL IV PRN ×2 (18:15)
[2017-03-19] MEDS: TRAMADOL HCL 50 MG TAB PO PRN ×2 (18:24→22:36)
[2017-03-19] MEDS ORDERED: LORAZEPAM INJ 1 MG in SYRINGE 0.5 ML IV PRN (18:30)
[2017-03-19] MEDS ORDERED: LORAZEPAM INJ 0.5 MG in SYRINGE 0.75 ML IV PRN (18:30)
[2017-03-19] MEDS: DOCUSATE SODIUM/SENNA 50/8.6MG TAB PO SCH (19:55)
[2017-03-20] VITALS (7 sets, daily range): BP systolic 95–133; BP diastolic 64–86; PULSE 73–89; TEMP 36.2–36.9; O2SAT 90–93; BMI 19.5
[2017-03-20] MEDS: PROCHLORPERAZINE MALEATE 10 MG TAB PO SCH ×3 (05:55→17:40)
[2017-03-20 06:23] LABS: HEMATOCRIT 25.6 % (42-52); MEAN CELL VOLUME 95.9 fL (80-100); MEAN CORPUSCULAR HEMOGLOBIN 31.1 pg (25-34); MEAN CORPUSCULAR HGB CONC 32.4 g/dl (32-36); MEAN PLATELET VOLUME 8.8 fL (7.4-10.4); PLATELET COUNT 568 K/uL (130-400); RED BLOOD COUNT 2.67 M/uL (4.7-6.1); WHITE BLOOD COUNT 11.92 K/uL (4.8-10.8)
[2017-03-20 06:52] LABS: BUN/CREATININE RATIO 16.5 (10-20); CALCIUM 8.4 mg/dl (8.5-10.1); CREATININE 2.5 mg/dl (0.60-1.40); POTASSIUM 4.6 mmol/L (3.5-5.1)
--- NOTE | 2017-03-20 07:41 | DIAGNOSTIC IMAGING REPORT ---
CHEST ONE VIEW PORTABLE CLINICAL HISTORY: Pneumothorax. COMPARISON STUDY: Chest radiograph March 19, 2017. FINDINGS: A left chest tube remains in place. No pneumothorax is visualized. There is subcutaneous gas within the left chest wall. This was shown on prior exam. A small right pleural effusion is likely present. There are bibasilar opacities. Numerous pulmonary nodules representing known metastatic disease. IMPRESSION: 1. Left chest tube in place. No pneumothorax. 2. Small right pleural effusion and bibasilar opacities. 2. Pulmonary nodules consistent with metastatic disease. Electronically signed by: Jone Alvarado M.D. 03/20/2017 7:40 AM Dictated Date/Time: 03/20/2017 7:37 AM
[2017-03-20] MEDS: BOOST PLUS VANILLA PO SCH ×6 (08:00→17:00)
[2017-03-20] MEDS ORDERED: SODIUM CHLORIDE 0.9% 1000ML 1,000 ML IV SCH (08:30)
--- NOTE | 2017-03-20 08:30 | Hospitalist Progress Note ---
Hospitalist Progress Note Date of Service March 20, 2017. (Danielle Engel ., PA-C) Subjective Pt evaluation today including: conversation w/ patient, conversation w/ family (), physical exam, chart review, lab review, review of studies, conversation w/ configuration management consultant (Dr. Vance ), review of inpatient medication list Voiding: no voiding problems, no incontinence Patient states he is feeling well. Pain is currently 0/10; discussed pain regimen. states patient slept well throughout night. Last BM per patient was 5/5. Encouraged adequate intake. +fatigued. Patient denies any fever, chills , sweats, lightheadedness, dizziness, vision changes, CP, palpitations, edema, SOB, wheezing, cough, abdominal pain, nausea, vomiting, diarrhea, urinary symptoms, melena, numbness/tingling, weakness, muscle/joint pain, anxiety/ depression, active bleeding, or new skin discoloration/changes. (Danielle Engel ., PA-C) Medications Current Inpatient Medications Medications (Trade) Dose Ordered Sig/Gisel Route Start Time Stop Time Status Last Admin Dose Admin Al Hydrox/Mg Hydrox/Simethicone (Maalox Max Susp) 15 ml Q4H PRN PO 03/18/17 11:00 04/17/17 10:59 Magnesium Hydroxide (Milk Of Magnesia Susp) 30 ml Q6H PRN PO 03/18/17 11:00 04/17/17 10:59 Polyethylene (Miralax Powder Packet) 17 gm DAILY PRN PO 03/18/17 11:00 04/17/17 10:59 Ondansetron HCl (Zofran Inj) 4 mg Q6H PRN IV 03/18/17 11:00 04/17/17 10:59 Acetaminophen (Tylenol Tab) 650 mg Q4H PRN PO 03/18/17 11:45 04/17/17 11:44 Miscellaneous (Iv Fluids Completed) 1 ea PRN PRN N/A 03/18/17 12:45 03/18/18 12:44 Magnesium Oxide (Mag-Ox Tab) 400 mg DAILY PO 03/19/17 08:00 04/18/17 07:59 03/19/17 08:01 400 MG Prochlorperazine Maleate (Compazine Tab) 10 mg Q6 PO 03/18/17 18:00 04/17/17 17:59 03/20/17 05:55 10 MG Senna/Docusate Sodium (Senokot S Tab) 1 tab HS PO 03/18/17 21:00 04/17/17 20:59 03/19/17 19:55 1 TAB Metoprolol Tartrate (Lopressor Tab) 75 mg BID PO 03/18/17 20:00 04/17/17 19:59 03/18/17 22:57 75 MG Levalbuterol (Xopenex 0.63 Mg/ 3 Ml Neb) 0.63 mg Q6R PRN INH 03/18/17 15:45 04/17/17 15:44 03/18/17 19:27 0.63 MG Albuterol/ Ipratropium (Duoneb) 3 ml Q2H PRN INH 03/18/17 20:45 04/17/17 20:44 03/18/17 21:23 3 ML Oxycodone/ Acetaminophen (Percocet 5-325mg Tab) @ Q4H PRN PO 03/18/17 22:45 04/01/17 22:44 03/19/17 16:45 1 TAB Enoxaparin Sodium (Lovenox Inj) 30 mg Q24H SQ 03/19/17 17:00 04/18/17 16:59 03/19/17 16:46 30 MG Enteral Nutritional Formula (Boost Plus Vanilla) 1 can TIDM PO 03/19/17 17:00 04/18/17 16:59 03/19/17 17:30 1 CAN Lidocaine (Lidoderm Patch 5%) 1 patch QAM TD 03/20/17 08:00 04/19/17 07:59 03/19/17 16:59 1 PATCH Miscellaneous (Remove Lidoderm Patch) 1 ea DAILY@2000 N/A 03/20/17 20:00 04/19/17 19:59 Tramadol HCl 50 mg 50 mg Q4H PRN PO 03/19/17 16:30 04/18/17 16:29 03/19/17 22:36 50 MG Acetaminophen/ Empty Bag (Ofirmev Iv/ Empty Iv Bag 100ml) 65 ml @ 260 mls/hr Q6H PRN IV 03/19/17 18:15 04/18/17 18:14 Ketorolac Tromethamine (Toradol Inj) 15 mg Q6H PRN IV 03/19/17 18:15 03/24/17 18:14 Hydromorphone HCl (Dilaudid Inj) 0.5 mg Q4 PRN IV 03/19/17 18:15 04/02/17 18:14 Hydromorphone HCl (Dilaudid Inj) 1 mg Q4 PRN IV 03/19/17 18:15 04/02/17 18:14 Lorazepam (Ativan Inj) 1 mg Q4H PRN IV 03/19/17 18:15 04/18/17 18:14 Lorazepam (Ativan Inj) 0.5 mg Q4H PRN IV 03/19/17 18:15 04/18/17 18:14 Lorazepam 0.5 mg 0.5 mg Q6 PRN PO 03/19/17 18:15 04/18/17 18:14 03/19/17 22:36 0.5 MG Lorazepam 1 mg/ Syringe 1 ml @ 1 mls/min Q4H PRN IV 03/19/17 18:30 04/18/17 18:29 Lorazepam/Syringe (Ativan Inj/ Syringe) 1 ml @ 1 mls/min Q4H PRN IV 03/19/17 18:30 04/18/17 18:29 (Danielle Engel ., GERI-C) Objective Vital Signs Date Time Temp Pulse Resp B/P Pulse Ox O2 Delivery O2 Flow Rate FiO2 03/20/17 07:47 36.3 73 16 97/64 90 Room Air 03/20/17 04:00 36.2 73 19 114/86 91 Room Air 03/20/17 00:00 Room Air 03/19/17 23:40 36.7 78 20 109/72 93 Room Air 03/19/17 20:00 Room Air 03/19/17 19:14 36.4 88 18 94/69 95 Room Air 03/19/17 16:29 36.3 80 20 97/66 94 Room Air 03/19/17 16:00 Room Air 03/19/17 13:15 94 Room Air 03/19/17 11:57 36.1 77 14 102/69 92 Room Air (Danielle Engel, GERI-C) Physical Exam General Appearance: no apparent distress, + thin Eyes: normal inspection, PERRL ENT: hearing grossly normal Neck: supple Respiratory/Chest: no respiratory distress, no accessory muscle use, + decreased breath sounds (throughout all lung prasad ), + pertinent finding ( poor inspiratory effort ) Cardiovascular: regular rate, rhythm Abdomen: normal bowel sounds, non tender, soft Extremities: no calf tenderness, + pedal edema (+1-2 pitting edema bilaterally , L>R) Neurologic/Psychiatric: alert, normal mood/affect, oriented x 3 Skin: warm/dry, no rash, + pallor (Danielle Engel ., PA-C) Laboratory Results Last 24 Hours Test 03/20/17 05:30 White Blood Count 11.92 K/uL Red Blood Count 2.67 M/uL Hemoglobin 8.3 g/dL Hematocrit 25.6 % Mean Corpuscular Volume 95.9 fL Mean Corpuscular Hemoglobin 31.1 pg Mean Corpuscular Hemoglobin Concent 32.4 g/dl RDW Standard Deviation 58.1 fL RDW Coefficient of Variation 17.9 % Platelet Count 568 K/uL Mean Platelet Volume 8.8 fL Sodium Level 134 mmol/L Potassium Level 4.6 mmol/L Chloride Level 98 mmol/L Carbon Dioxide Level 31 mmol/L Anion Gap 5.0 mmol/L Blood Urea Nitrogen 41 mg/dl Creatinine 2.50 mg/dl Est Creatinine Clear Calc Drug Dose 24.3 ml/min Estimated GFR () 28.5 Estimated GFR (Non- 24.6 BUN/Creatinine Ratio 16.5 Random Glucose 78 mg/dl Calcium Level 8.4 mg/dl (Danielle Engel ., PA-C) Assessment and Plan 71-year-old male directly admitted to the hospital from his oncologist office with complaints of dyspnea on exertion and orthopnea. SOB, likely secondary to L pleural effusion from metastatic carcinoma: - Admit to oncology floor - Consult thoracic surgery, appreciate recommendations -- Thoracentesis on 03/19 with draining of 1000 mL- pleural fluid studies/ pathology pending -- Left thoracostomy tube secondary to left pneumothorax from thoracentesis -- Ambulation in hallways every shift -- ?Pleurodesis over the weekend - Percocet, IV Dilaudid, IV Toradol, Tramadol, and IV Tylenol PRN for pain management- if pain worsens, consider pain management consult for local injection at site of procedure - DuoNebs PRN Metastatic prostate cancer to lungs and liver: - Follows w/ Dr. 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 Discussed with Danielle Engel PAC and agree with findings and plan as documented in the note. Any exceptions or clarifications are listed here: None 71 M with metastatic prostate cancer, malignant pleural effusion, s/p thoracentesis--> pneumothorax, and now chest tube palliative care consult and following Pt is understanding of condition, spent night, pt more comfortable vitals noted right chest decreased breath sounds, chest tube with little drainage, consideration of pleurodesis supportive care for pneumothorax, coordinate symptom relief with palliative care Documented By: Matt Jacome (Matt Jacome M.D.)
[2017-03-20] MEDS: METOPROLOL TARTRATE 25 MG TAB PO SCH ×2 (08:31→19:50)
[2017-03-20] MEDS: LIDODERM (LIDOCAINE) PATCH 5% TD SCH (08:32)
[2017-03-20] MEDS: TRAMADOL HCL 50 MG TAB PO PRN ×2 (08:42→22:38)
[2017-03-20] MEDS: MAGNESIUM OXIDE 400 MG TAB PO SCH (08:42)
--- NOTE | 2017-03-20 10:32 | SURGERY PROGRESS NOTE ---
DATE: 03/20/2017 Mr. Fuller was seen today. He looks fine. On room air, his saturations are 91%. His vital signs are stable. The pleural fluid really is not accumulating on the x-ray and the subcutaneous emphysema is decreased and he has no air leak. When his drainage decreases, we will sclerose him with talc and removed his chest tube. That should take place sometime in the next few days.
[2017-03-20] MEDS ORDERED: LEValbuterol HFA 15GM INHALER INH PRN (14:00)
--- NOTE | 2017-03-20 15:37 | Palliative Care Progress Note ---
Palliative Care Progress Note Date of Service March 20, 2017. Subjective Pt evaluation today including: conversation w/ patient, physical exam, conversation w/ consultants intern, review of inpatient medication list Pain: 6/10- comfortable with rating PO Intake: tolerating diet well Voiding: no voiding problems -Pain is better today, although he gives it the same number rating. Reports good pain relief with tramadol. -Was able to sleep, lorazepam worked well. went home to rest. -Is agreeable to hospice once he does go home. Review of Systems Constitutional: + weakness Cardiac: No chest pain, No edema Abdomen: No nausea, No pain, No vomiting Male : No problem reported Psychiatric: No anxiety, No depression symptoms Objective Vital Signs Date Time Temp Pulse Resp B/P Pulse Ox O2 Delivery O2 Flow Rate FiO2 03/20/17 14:02 90 03/20/17 11:30 36.4 81 16 108/74 90 Room Air 03/20/17 08:00 Room Air 03/20/17 07:47 36.3 73 16 97/64 90 Room Air 03/20/17 04:00 36.2 73 19 114/86 91 Room Air 03/20/17 00:00 Room Air 03/19/17 23:40 36.7 78 20 109/72 93 Room Air 03/19/17 20:00 Room Air 03/19/17 19:14 36.4 88 18 94/69 95 Room Air 03/19/17 16:29 36.3 80 20 97/66 94 Room Air 03/19/17 16:00 Room Air Physical Exam General Appearance: no apparent distress, + thin, + pertinent finding ( chroncially ill-appearing) ENT: hearing grossly normal Neck: supple, no JVD Respiratory/Chest: no respiratory distress, no accessory muscle use, + decreased breath sounds, + pertinent finding (does wheeze with any activity; left chest wall is painful at chest tube insertion site) Cardiovascular: regular rate, rhythm, no edema, + normal peripheral pulses Abdomen: normal bowel sounds, non tender, soft Neurologic/Psychiatric: alert, normal mood/affect, oriented x 3 Skin: + jaundice Laboratory Results Last 24 Hours Test 03/20/17 05:30 White Blood Count 11.92 K/uL Red Blood Count 2.67 M/uL Hemoglobin 8.3 g/dL Hematocrit 25.6 % Mean Corpuscular Volume 95.9 fL Mean Corpuscular Hemoglobin 31.1 pg Mean Corpuscular Hemoglobin Concent 32.4 g/dl RDW Standard Deviation 58.1 fL RDW Coefficient of Variation 17.9 % Platelet Count 568 K/uL Mean Platelet Volume 8.8 fL Sodium Level 134 mmol/L Potassium Level 4.6 mmol/L Chloride Level 98 mmol/L Carbon Dioxide Level 31 mmol/L Anion Gap 5.0 mmol/L Blood Urea Nitrogen 41 mg/dl Creatinine 2.50 mg/dl Est Creatinine Clear Calc Drug Dose 24.3 ml/min Estimated GFR () 28.5 Estimated GFR (Non- 24.6 BUN/Creatinine Ratio 16.5 Random Glucose 78 mg/dl Calcium Level 8.4 mg/dl Assessment and Plan Problem list: SOB Pain, right side at chest tube site Metastatic carcinoma- liver, lungs, bone. Unknown primary Left pleural effusion- ?malignant, s/p thoracentesis- pathology pending. Developed pneumothorax- s/p left chest tube insertion. Large right lower thoracic mass Low BMI Poor functional status, weakness Goals of care (Z51.5) Palliative care recommendations: -Patient still has left chest tube. Could possibly have talc pleurodesis this weekend per CT surgery's note. Questionable need for Pleur-x. -Continue current symptom management. Patient is leery of narcotics, but is tolerating Tramadol. I would still recommend sending a script for Roxanol PRN home with him for pain or SOB. -Recommending hospice at this point. Patient is agreeable, but not sure if , Merlene, is. POLST should be completed with patient and his . -Patient's goal is to go home. Very adamant about not wanting placement or to be in hospital. -If patient is here Thursday, will follow up. Palliative Performance Scale: 50 % Continued [facility] stay due to: multiple IV medications needed, home environment unsafe for pt
--- NOTE | 2017-03-20 16:20 | Hematology/Oncology Prog Note ---
Hematology/Onc Progress Note Date of Service March 20, 2017. Diagnoses Carcinoma unknown primary Pleural effusion Renal insufficiency Medications Medications Administered Medications (Trade) Dose Ordered Sig/Gisel Route Start Time Stop Time Status Last Admin Dose Admin Enoxaparin Sodium (Lovenox Inj) 40 mg Q24H SQ 03/18/17 17:00 03/19/17 11:50 DC 03/18/17 17:17 40 MG Potassium Chloride (Klor-Con M10) 40 meq NOW ONCE PO 03/18/17 12:45 03/18/17 12:46 DC 03/18/17 12:31 40 MEQ Magnesium Oxide (Mag-Ox Tab) 400 mg DAILY PO 03/19/17 08:00 04/18/17 07:59 03/20/17 08:42 400 MG Prochlorperazine Maleate (Compazine Tab) 10 mg Q6 PO 03/18/17 18:00 04/17/17 17:59 03/20/17 12:21 10 MG Senna/Docusate Sodium (Senokot S Tab) 1 tab HS PO 03/18/17 21:00 04/17/17 20:59 03/19/17 19:55 1 TAB Metoprolol Tartrate (Lopressor Tab) 75 mg BID PO 03/18/17 20:00 04/17/17 19:59 03/18/17 22:57 75 MG Levalbuterol (Xopenex 0.63 Mg/ 3 Ml Neb) 0.63 mg Q6R PRN INH 03/18/17 15:45 04/17/17 15:44 03/18/17 19:27 0.63 MG Albuterol/ Ipratropium (Duoneb) 3 ml Q2H PRN INH 03/18/17 20:45 04/17/17 20:44 03/18/17 21:23 3 ML Lidocaine HCl (Xylocaine 1% Inj (Local)) 20 ml STK-MED ONCE .ROUTE 03/18/17 22:25 03/18/17 22:26 DC 03/18/17 22:59 20 ML Oxycodone/ Acetaminophen (Percocet 5-325mg Tab) @ Q4H PRN PO 03/18/17 22:45 04/01/17 22:44 03/19/17 16:45 1 TAB Enoxaparin Sodium (Lovenox Inj) 30 mg Q24H SQ 03/19/17 17:00 04/18/17 16:59 03/19/17 16:46 30 MG Enteral Nutritional Formula (Boost Plus Vanilla) 1 can TIDM PO 03/19/17 17:00 04/18/17 16:59 03/20/17 12:13 1 CAN Lidocaine (Lidoderm Patch 5%) 1 patch QAM TD 03/20/17 08:00 04/19/17 07:59 03/19/17 16:59 1 PATCH Tramadol HCl (Ultram Tab) 50 mg Q4H PRN PO 03/19/17 16:30 04/18/17 16:29 03/20/17 08:42 50 MG Lorazepam 0.5 mg 0.5 mg Q6 PRN PO 03/19/17 18:15 04/18/17 18:14 03/19/17 22:36 0.5 MG Sodium Chloride (Nss 1000ml) 1,000 ml @ 70 mls/hr [id number] IV 03/20/17 08:30 03/20/17 22:47 03/20/17 08:48 70 MLS/HR Levalbuterol (Xopenex Hfa Inhaler) 2 puffs QID PRN INH 03/20/17 14:00 04/19/17 13:59 03/20/17 13:30 2 PUFFS Subjective Just to remains. Pleural fluid has been analyzed and is negative for malignant cells. He states his pain is controlled. He really offers no new symptoms. He is afebrile Review of Systems: Constitutional: Negative for night sweats, or fever Eyes: Negative for event change of vision ENT: Negative for epistaxis, nasal discharge, sore throat, or deafness Cardiovascular: Negative for chest pain, palpitations, dizziness, diaphoresis Respiratory: Negative for worsening shortness of breath, or any hemoptysis, or purulent cough Gastrointestinal: Negative for diarrhea, hematemesis, melena, nausea, vomiting , or dyspepsia Integumentary (skin): Negative for rash or jaundice discoloration Genitourinary: Negative for urinary frequency, hematuria, or dysuria Neurological: Negative for weakness, seizure activity, headache, or dizziness Lymphatic/Hematologic: Negative for petechiae, bleeding or new adenopathy Musculoskeletal: Negative for new joint or back pain Allergic/Immunologic: Negative for unusual rash or pruritis. Vital Signs Vital Signs Past 12 Hours Date Time Temp Pulse Resp B/P Pulse Ox O2 Delivery O2 Flow Rate FiO2 03/20/17 15:35 36.3 80 16 110/73 93 Room Air 03/20/17 14:02 90 03/20/17 11:30 36.4 81 16 108/74 90 Room Air 03/20/17 08:00 Room Air 03/20/17 07:47 36.3 73 16 97/64 90 Room Air Physical Exam Constitutional: vitals are stable. Eyes: Eyes are TUNDE EOMI without conjuctival erythema or icterus. ENT: External examination was negative for masses. Neck: Negative for masses or palpable thyromegaly Respiratory: Lung sounds were generally clear bilaterally. Left-sided chest tube remains in place Cardiovascular: Heart was RRR without significant murmur, gallops aoe rubs Gastrointestinal: No palpable hepatic or splenomegaly. The abdomen was soft with normal bowel sounds. Lymphatic system: there was no palpable peripheral lymphadenopathy Musculoskeletal System: The musculoskeletal system seemed concordant with age. Skin: The skin was negative for jaundice. Neurologic exam: The exam was negative for any focal findings. Deep tendon reflexes were equal and symmetrical. Psychiatric exam: Was essentially negative with normal mood and effect. Extremities: Negative for edema Laboratory Last 24 Hours Test 03/20/17 05:30 White Blood Count 11.92 K/uL Red Blood Count 2.67 M/uL Hemoglobin 8.3 g/dL Hematocrit 25.6 % Mean Corpuscular Volume 95.9 fL Mean Corpuscular Hemoglobin 31.1 pg Mean Corpuscular Hemoglobin Concent 32.4 g/dl RDW Standard Deviation 58.1 fL RDW Coefficient of Variation 17.9 % Platelet Count 568 K/uL Mean Platelet Volume 8.8 fL Sodium Level 134 mmol/L Potassium Level 4.6 mmol/L Chloride Level 98 mmol/L Carbon Dioxide Level 31 mmol/L Anion Gap 5.0 mmol/L Blood Urea Nitrogen 41 mg/dl Creatinine 2.50 mg/dl Est Creatinine Clear Calc Drug Dose 24.3 ml/min Estimated GFR () 28.5 Estimated GFR (Non- 24.6 BUN/Creatinine Ratio 16.5 Random Glucose 78 mg/dl Calcium Level 8.4 mg/dl Assessment & Plan Pleural fluid pathology is negative for malignancy. He is afebrile. He appears quite comfortable now at the pleural fluid has been removed. I am worried about his creatinine climbing. IV hydration ongoing. This will need to be followed carefully. Possible pleural sclerosis tomorrow or over the weekend
[2017-03-20] MEDS: ENOXAPARIN 30 MG/0.3 ML SYR SQ SCH (17:39)
[2017-03-20] MEDS: DOCUSATE SODIUM/SENNA 50/8.6MG TAB PO SCH (19:50)
[2017-03-21] MEDS: TRAMADOL HCL 50 MG TAB PO PRN ×2 (03:22→08:27)
[2017-03-21 04:27] VITALS: BP 122/81; PULSE 78; TEMP 36.2; O2SAT 93
[2017-03-21] MEDS: PROCHLORPERAZINE MALEATE 10 MG TAB PO SCH ×2 (05:32)
[2017-03-21 05:42] VITALS: Ht 182.9 cm; Wt 63.0 kg
[2017-03-21 05:51] LABS: HEMATOCRIT 26.2 % (42-52); MEAN CELL VOLUME 96.3 fL (80-100); MEAN CORPUSCULAR HEMOGLOBIN 31.3 pg (25-34); MEAN CORPUSCULAR HGB CONC 32.4 g/dl (32-36); MEAN PLATELET VOLUME 8.7 fL (7.4-10.4); PLATELET COUNT 638 K/uL (130-400); RED BLOOD COUNT 2.72 M/uL (4.7-6.1); WHITE BLOOD COUNT 16.09 K/uL (4.8-10.8)
[2017-03-21 06:19] LABS: CREATININE 2.4 mg/dl (0.60-1.40)
--- NOTE | 2017-03-21 07:09 | DIAGNOSTIC IMAGING REPORT ---
CHEST ONE VIEW PORTABLE CLINICAL HISTORY: pneumothorax chest pain COMPARISON STUDY: 03/20/2017 FINDINGS: Basilar chest tube in good position. No significant residual pneumothorax. Subcutaneous emphysema similar. Mild bibasilar atelectatic change. Parenchymal nodularity is stable IMPRESSION: Stable exam. No significant postprocedural pneumothorax. Unchanging subcutaneous emphysema Electronically signed by: Deion Springer M.D. 03/21/2017 7:08 AM Dictated Date/Time: 03/21/2017 7:06 AM
[2017-03-21 07:10] VITALS: BP 154/81; PULSE 87; TEMP 36.4; O2SAT 97
[2017-03-21] MEDS: BOOST PLUS VANILLA PO SCH ×2 (08:00)
[2017-03-21] MEDS: LIDODERM (LIDOCAINE) PATCH 5% TD SCH (08:00)
[2017-03-21 08:10] VITALS: BP 150/80; PULSE 80; O2SAT 95
[2017-03-21] MEDS: METOPROLOL TARTRATE 25 MG TAB PO SCH (08:19)
[2017-03-21] MEDS: MAGNESIUM OXIDE 400 MG TAB PO SCH (08:19)
[2017-03-21 08:30] VITALS: O2SAT 97
--- NOTE | 2017-03-21 08:56 | SURGERY PROGRESS NOTE ---
DATE: 03/21/2017 Mr. Fuller looks good today. I am a little concerned about him, however. He is on 2 liters of O2 and has not really required oxygen before this. His x-ray this morning looks very good. I see no evidence of fluid or effusion. His subcutaneous emphysema is decreased. He has no air leak. He may be a bit fluid overloaded but it really would be mild. Quite frankly, I think he has some mild atelectasis but really he looks very good. His other vital signs are stable. I had a long discussion with the patient and his at the bedside this morning. His lungs sound good. He has no tachypnea. He looks good. His chest tube site is clean. His abdomen is soft. He does have this large mass on the right. He has trace edema. Neurologically, he is awake, alert, oriented and conversant. Reviewing his labs, white count is up to 16,090. Hemoglobin stable at 8.5. His creatinine has dropped from 2.5 yesterday to 2.4. His weight is 63 kilograms which is down from yesterday. He has been voiding well according to the patient. His x-ray looks good but his chest tube has drained almost nothing. There is also no air leak. ASSESSMENT AND PLAN: Left pleural effusion in a patient with metastatic carcinoma. The cytology was negative. I discussed this in detail with Dr. Coles yesterday. I feel this is probably a paramalignant effusion; however, it is very much a dickerson area to determine whether you should sclerose them or not. Given his rather fragile state, I elected to simply remove the chest tube. I had a long talk with the patient and his who has some medical knowledge. I would plan on following this patient up in the office, and if the fluid recurs, we will insert a PleurX catheter. At this time, I feel from a pleural effusion standpoint, he is stable, although he has other issues.
--- NOTE | 2017-03-21 09:23 | DIAGNOSTIC IMAGING REPORT ---
CHEST ONE VIEW PORTABLE CLINICAL HISTORY: s/p removal of chest tube tube removal COMPARISON STUDY: 03/21/2017 7:05 AM FINDINGS: Interval removal of the left-sided chest tube. No significant pneumothorax. Pleural and parenchymal changes as well as pulmonary nodularity is stable. Subcutaneous emphysema is stable. IMPRESSION: No evidence pneumothorax status post chest tube removal Electronically signed by: Deion Springer M.D. 03/21/2017 9:22 AM Dictated Date/Time: 03/21/2017 9:21 AM
[2017-03-21] MEDS ORDERED: OXYC-609 PO (10:14)
[2017-03-21] MEDS ORDERED: ONDA4TAB65 PO (10:14)
--- NOTE | 2017-03-21 10:15 | Discharge Instructions ---
Discharge Instructions Date of Service March 21, 2017. Admission Reason for Admission: Metastatic Prostate Cancer Discharge Discharge Diagnosis / Problem: pleural effusion, pneumothorax Discharge Goals Goal(s): Diagnostic testing, Therapeutic intervention Activity Recommendations Activity Limitations: resume your previous activity . Current Hospital Diet Patient's current hospital diet: Regular Diet Discharge Diet Recommended Diet: Regular Diet Pending Studies Studies pending at discharge: yes (c) List of pending studies: cultures of fluid Medical Emergencies . Who to Call and When: Medical Emergencies: If at any time you feel your situation is an emergency, please call 911 immediately. . Non-Emergent Contact Non-Emergency issues call your: Oncologist (Dr Coles) Call Non-Emergent contact if: temperature is above 101, your pain is unusual for you . . "Provider Documentation" section prepared by Matt Jacome. . VTE Core Measure Inpt VTE Proph given/why not?: Enoxaparin (Lovenox)DEZ, TArunERick Greenfield, SCD's
--- NOTE | 2017-03-21 10:19 | Discharge Summary ---
Discharge Summary Date of Service March 21, 2017. Discharge Summary Admission Date: March 20, 2017 at 11:58 Discharge Date: March 21, 2017 Discharge Disposition: Home with services Principal Diagnosis: pleural effusion, pneumothorax Consultations: Dr Vance performed thoracentesis and chest tube management Medication Reconciliation New Medications: Ondansetron Hcl (Zofran) 4 Mg Tab 1-2 TAB PO Q6H PRN for Nausea or Vomiting for 3 Days, #20 TAB 2 Refills Changed Medications: Oxycodone HCl (Oxycodone HCl) 5 Mg Tab 1-2 MG PO Q6H PRN for Pain, #30 DOSE (Changed from: MG) Continued Medications: Magnesium Oxide (Mag-Ox) 400 Mg Tab 400 MG PO DAILY, TAB Metoprolol Tartrate (Lopressor) (Lopressor) 25 Mg Tab 1 TAB PO BID for 90 Days, #180 TAB 1 Refill Naproxen (Aleve) 220 Mg Tab 220 MG PO BID, TAB Prochlorperazine Maleate (Compazine) 10 Mg Tab 1 TAB PO Q6 for 7 Days, #30 TAB 3 Refills Sennosides-Docusate Sodium (Stool Softener) 1 Tab Tab PO HS Discharge Exam Review of Systems: Constitutional: + weakness, No chills, No fever Respiratory: + dyspnea on exertion, No cough, No dyspnea at rest, No shortness of breath Cardiovascular: + orthopnea, No chest pain Abdomen: No nausea, No vomiting Musculoskeletal: + joint pain, + muscle pain Physical Exam: General Appearance: WD/WN, + mild distress Neck: supple, no JVD Respiratory/Chest: no respiratory distress, + decreased breath sounds (left base) Cardiovascular: regular rate, rhythm, no murmur Abdomen / GI: normal bowel sounds, non tender, soft Neurologic/Psychiatric: alert, oriented x 3 Hospital Course 71 M with metastatic prostate cancer, malignant pleural effusion, s/p thoracentesis--> pneumothorax, chest tube removed and follow up CXR without recurrence of pneumothorax Palliative care did follow no defined decision reached, is DNR was not hypoxic prior to discharge supportive care for metastatic prostate cance, symptom relief with home health available and eventula transition to palliative care Documented By: Matt Jacome Total Time Spent: Greater than 30 minutes This includes examination of the patient, discharge planning, medication reconciliation, and communication with other providers. Discharge Instructions Please refer to the electronic Patient Visit Report (Discharge Instructions) for additional information. Additional Copies To Hamilton Coles D.O.
[2017-03-21 11:01] VITALS: BP 154/81; PULSE 87; TEMP 36.4; O2SAT 97
[2017-03-21] MEDS ORDERED: ATV/1 PO (11:33)
== END 2017-03-21 12:00 | disposition home health service (06) | DRG 723 ==
LOC: C.4E 10:44 → INTOOBSV 10:44 → OBSVTOIN 03-20 11:58
PROVIDERS: ADMIT Family Medicine; ATTEND Family Medicine
PROC: 0W9B30Z Drainage of Left Pleural Cavity with Drainage Device, Percutaneous Approach (ICD-10-PCS; principal; 2017-03-18)
DX: C79.82 Secondary malignant neoplasm of genital organs (principal); J93.9 Pneumothorax, unspecified; C78.7 Secondary malignant neoplasm of liver and intrahepatic bile duct; J91.0 Malignant pleural effusion; C78.00 Secondary malignant neoplasm of unspecified lung; C79.51 Secondary malignant neoplasm of bone; N17.9 Acute kidney failure, unspecified; N18.4 Chronic kidney disease, stage 4 (severe); Z68.1 Body mass index [BMI] 19.9 or less, adult; R53.1 Weakness; R60.0 Localized edema; I12.9 Hypertensive chronic kidney disease with stage 1 through stage 4 chronic kidney disease, or unspecified chronic kidney disease; Z66 Do not resuscitate; Z74.09 Other reduced mobility; Z87.891 Personal history of nicotine dependence; Z80.42 Family history of malignant neoplasm of prostate; Z92.21 Personal history of antineoplastic chemotherapy; Z79.1 Long term (current) use of non-steroidal anti-inflammatories (NSAID); Z79.891 Long term (current) use of opiate analgesic; Z79.899 Other long term (current) drug therapy; C61 Malignant neoplasm of prostate

== ENCOUNTER → 2017-03-25 | Outpatient (CLI) | payer OTHER, MEDICARE ==
[~2017-03-25] MED LIST: ACET-1256 PO; ATV/1 PO; DOCU-94 PO; FERR324T PO; MAGN400T6 PO; METO25TA56 PO; NAPR1TAB9 PO; ONDA4TAB65 PO; OXGN; OXYC-609 PO; PROC1TAB5 PO; SENNTAB23 PO; VLTG EXT
--- NOTE | 2017-03-25 11:53 | DIAGNOSTIC IMAGING REPORT ---
CHEST 2 VIEWS ROUTINE CLINICAL HISTORY: Shortness of breath COMPARISON STUDY: 03/21/2017 FINDINGS: There are multiple bilateral pulmonary nodules. There is also a 4 cm right perihilar mass/airspace opacity. There is interval increase in the size of the left pleural effusion. A trace right pleural effusion is also suspected.[ There has been resolution of the subcutaneous emphysema on the left. IMPRESSION: 1. Interval resolution of the previously identified subcutaneous emphysema on the left 2. Increasing small left pleural effusion 3. Multiple bilateral pulmonary nodules Electronically signed by: Stephen Avalos M.D. 03/25/2017 11:51 AM Dictated Date/Time: 03/25/2017 11:49 AM
== END | disposition home or self-care (01) ==
LOC: C.RAD 11:04
PROVIDERS: ATTEND Internal Medicine Hematology & Oncology
DX: C61 Malignant neoplasm of prostate (principal); J90 Pleural effusion, not elsewhere classified; R91.8 Other nonspecific abnormal finding of lung field

== ENCOUNTER → 2017-04-01 | Outpatient (CLI) | payer OTHER, MEDICARE ==
--- NOTE | 2017-04-01 12:40 | DIAGNOSTIC IMAGING REPORT ---
CHEST 2 VIEWS ROUTINE HISTORY: Pneumothorax. Pleural effusions. COMPARISON: Chest 03/25/2017. FINDINGS: No pneumothorax. Trace right and small left pleural effusions persist. Multiple bilateral pulmonary nodules and a right perihilar masslike airspace opacity are again noted. The heart is stable in size. Calcified thoracic aorta. Left basilar densities favor atelectasis from the pleural effusion. IMPRESSION: No change from the prior study. No pneumothorax. Bilateral pleural effusions and multiple bilateral pulmonary nodules are again noted. Electronically signed by: Surjit Ag M.D. 04/01/2017 12:39 PM Dictated Date/Time: 04/01/2017 12:37 PM
== END | disposition home or self-care (01) ==
LOC: C.RAD1850 12:17
PROVIDERS: ATTEND Surgery
DX: J93.9 Pneumothorax, unspecified (principal); R91.8 Other nonspecific abnormal finding of lung field; J90 Pleural effusion, not elsewhere classified

== ENCOUNTER 2017-04-14 15:00 | Inpatient (IN) | payer OTHER, MEDICARE ==
[~2017-04-14] VITALS: Ht 182.9 cm; Wt 69.4 kg
[~2017-04-14 15:00] MED LIST changes: -ACET-1256 PO; -ATV/1 PO; -DOCU-94 PO; -FERR324T PO; -OXGN; -VLTG EXT
[2017-04-14] MEDS ORDERED: ALBUT/IPRATROP 3MG/0.5MG NEB 3 ML VIAL INH STA (15:55)
--- NOTE | 2017-04-14 16:29 | DIAGNOSTIC IMAGING REPORT ---
SINGLE VIEW CHEST CLINICAL HISTORY: Dyspnea. FINDINGS: An AP, portable, upright chest radiograph is compared to study dated 04/01/2017. Correlation is made with PET/CT dated 05/20/2016. The examination is significantly degraded by portable technique and patient rotation. The heart is enlarged and there is atherosclerotic calcification of the thoracic aorta. There is pulmonary vascular congestion. There are layering pleural effusions with associated consolidation, left larger than right. Bilateral pulmonary pleural-based nodules are again noted. No pneumothorax is seen. The skeletal structures are osteopenic. The bony thorax is grossly intact. IMPRESSION: 1. Cardiomegaly with evidence of congestive failure. 2. Layering pleural effusions, left larger than right with associated consolidation. This likely represents atelectasis. Clinical correlation will be required. 3. Bilateral pulmonary and pleural-based nodules are again noted and typical in appearance for metastatic disease. Electronically signed by: Star Fernandes M.D. 04/14/2017 4:27 PM Dictated Date/Time: 04/14/2017 4:25 PM
[2017-04-14] MEDS ORDERED: LIDO/EPINEPHRINE/SOD BICARB 20 ML VIAL INFIL ONE (16:41)
--- NOTE | 2017-04-14 17:10 | EMERGENCY ROOM VISIT NOTE ---
History Report prepared by Jet: George Murphy Under the Supervision of: Dr. Jaylen Mora D.O. First contact with patient: 15:49 Chief Complaint: RESPIRATORY PROBLEMS Stated Complaint: CANT BREATH Nursing Triage Summary: Pts reports pt is having difficulty breathing for the past couple days, sx getting worse. Denies cp. History of Present Illness The patient is a 71 year old male who presents to the Emergency Room with complaints of worsening shortness of breath that started a week ago. The patient says that he "cannot breathe". He denies any chest pain. Per the patient 's family, the patient is usually on 4 or 5 liters of oxygen at home. He uses nebulizer treatments at home. The patient was diagnosed with lung cancer less than a year ago. He only had 2 sessions of chemotherapy because the patient has been too weak to tolerate any further chemo. The patient sees Dr. Vance of thoracic surgery, and the patient's talked to the doctor today about the patient's symptoms. The patient has not had any recent cough or fevers. Source of History: patient, family Onset: A week ago Position: other (global - shortness of breath) Symptom Intensity: patient says he "cannot breathe" Timing: worsening Associated Symptoms: No chest pain, No cough, No fevers Note: No other associated symptoms noted. Review of Systems See HPI for pertinent positives & negatives. A total of 10 systems reviewed and were otherwise negative. Past Medical & Surgical Medical Problems: (1) Pleural effusion (2) Shortness of breath Family History Family history omitted secondary to patient's advanced age. Social History Smoking Status: Never Smoker Marital Status: Housing Status: lives with family Current/Historical Medications Scheduled Magnesium Oxide (Mag-Ox), 400 MG PO DAILY Metoprolol Tartrate (Lopressor) (Lopressor), 75 MG PO DAILY Naproxen (Aleve), 220 MG PO BID Prochlorperazine Maleate (Compazine), 1 TAB PO Q6 Sennosides-Docusate Sodium (Stool Softener), PO HS Scheduled PRN Ondansetron Hcl (Zofran), 1-2 TAB PO Q6H PRN for Nausea or Vomiting Oxycodone HCl (Oxycodone HCl), 1-2 MG PO Q6H PRN for Pain Allergies Coded Allergies: No Known Allergies (Unverified , 04/14/17) Physical Exam Vital Signs Date Time Temp Pulse Resp B/P Pulse Ox O2 Delivery O2 Flow Rate FiO2 04/14/17 16:25 58 04/14/17 15:57 98 Nasal Cannula 5.0 04/14/17 15:57 98 Nasal Cannula 5.0 04/14/17 15:08 Nasal Cannula 04/14/17 15:05 36.3 60 24 90/54 100 Nasal Cannula 6.0 Physical Exam CONSTITUTIONAL/VITAL SIGNS: Reviewed / noted above. GENERAL: Non-toxic in appearance. INTEGUMENTARY: Warm, dry, and [place]. HEAD: Normocephalic. EYES: without scleral icterus or trauma. ENT/OROPHARYNX: clear and moist. LYMPHADENOPATHY/NECK: Is supple without lymphadenopathy or meningismus. RESPIRATORY: Decreased breath sounds bilaterally, right greater than left. Some mild increased work of breathing. CARDIOVASCULAR: Regular rate and rhythm. GI/ABDOMEN: Soft and nontender. No organomegaly or pulsatile mass. No rebound or guarding. Normal bowel sounds. EXTREMITIES: Warm and well perfused. BACK: No CVA tenderness. NEUROLOGICAL: Intact without focal deficits. PSYCHIATRIC: normal affect. MUSCULOSKELETAL: Normally developed with good muscle tone. Medical Decision & Procedures ER Provider Diagnostic Interpretation: X ray results and stated below per my interpretation and radiology interpretation. SINGLE VIEW CHEST CLINICAL HISTORY: Dyspnea. FINDINGS: An AP, portable, upright chest radiograph is compared to study dated 04/01/2017. Correlation is made with PET/CT dated 05/20/2016. The examination is significantly degraded by portable technique and patient rotation. The heart is enlarged and there is atherosclerotic calcification of the thoracic aorta. There is pulmonary vascular congestion. There are layering pleural effusions with associated consolidation, left larger than right. Bilateral pulmonary pleural-based nodules are again noted. No pneumothorax is seen. The skeletal structures are osteopenic. The bony thorax is grossly intact. IMPRESSION: 1. Cardiomegaly with evidence of congestive failure. 2. Layering pleural effusions, left larger than right with associated consolidation. This likely represents atelectasis. Clinical correlation will be required. 3. Bilateral pulmonary and pleural-based nodules are again noted and typical in appearance for metastatic disease. Electronically signed by: Star Fernandes M.D. 04/14/2017 4:27 PM Dictated Date/Time: 04/14/2017 4:25 PM Laboratory Results Test 04/14/17 15:55 04/14/17 17:05 04/14/17 17:30 Creatine Kinase MB Ratio (0-3.0) Bedside Blood Gas pH (LAB) 7.38 (7.35-7.45) Bedside Blood Gas pCO2 (LAB) 45 mmHg (35-46) Bedside Blood Gas pO2 (LAB) 114 mmHg (80-95) Bedside Blood Gas HCO3 (LAB) 26 meq/L (19-24) Bedside Blood Gas Total CO2 28 mEq/l (24-31) Bedside Blood Gas Base Excess (LAB) 1.0 meq/L (-9-1.8) Bedside Blood Gas O2 Saturation 98.0 % (90-95) Laboratory results as stated above per my review. Medications Administered Medications (Trade) Dose Ordered Sig/Gisel Route Start Time Stop Time Status Last Admin Dose Admin Albuterol/ Ipratropium (Duoneb) 3 ml NOW STAT INH 04/14/17 15:55 04/14/17 15:57 DC 04/14/17 16:06 3 ML ECG Indication: SOB/dyspnea Rate (beats per minute): 60 Rhythm: normal sinus Findings: no ectopy, other (no acute injury, low voltage) ED Course 1551: Previous medical records were reviewed. The patient was evaluated in room A9A. A complete history and physical examination was performed. 1555: Ordered Duoneb 3 ml INH. 1638: I discussed the patient with Brett Serrano PA-C Cardiothoracic surgery - he says to talk to medicine about the patient. 1654: I discussed the patient with Dr. Serge Glover windows and doors installer - she will evaluate the patient for further treatment. 1655: I reevaluated the patient and he is resting. The patient verbally expressed understanding and agreement of the treatment plan. The patient will be evaluated for further treatment. Medical Decision the differential was considered includes acute myocardial infarction, acute coronary syndrome, myocarditis, pericarditis, pericardial effusions /tamponade, esophageal perforation, pulmonary embolism, pneumonia, pneumothorax, cardiomyopathy, congestive heart, anemia , COPD/asthma exacerbation. Medication Reconciliation: I attest that I have personally reviewed the patient' s current medication list. This is a 70-year-old male who presents to the ED with a chief complaint of shortness of breath. The patient has a history of metastatic prostate cancer. He has developed pleural effusions in the past. This has been drained previously by Dr. Kat. The patient still additional complaints. The patient has diminished sounds bilaterally. Right seems more depressed than the left. Chest x-ray suggest a moderate-sized effusion. I spoke with the thoracic surgical service who is going to place a Pleur-evac and wanes along. They requested that the medicine service that the patient for his ongoing medical issues. The patient will be seen by the hospitalist service as well. Consults Time Called: -- Consulting Physician: Brett Serrano PA-C Cardiothoracic surgery Returned Call: [phone] (in person) I discussed the patient with Brett Serrano PA-C Cardiothoracic surgery - he says to talk to medicine about the patient. Additional Consults: Time Called: [phone] Consulted Physician: Dr. Serge Glover windows and doors installer Returned Call: [phone] (in person) Additional Comments: I discussed the patient with Dr. Serge Glover windows and doors installer - she will evaluate the patient for further treatment. Impression Primary Impression: Dyspnea Additional Impression: Pleural effusion, left Scribe Attestation The scribe's documentation has been prepared under my direction and personally reviewed by me in its entirety. I confirm that the note above accurately reflects all work, treatment, procedures, and medical decision making performed by me. Departure Information Dispostion Being Evaluated By Hospitalist Referrals Sarthak Dao (PCP) Patient Instructions My [facility] Problem Qualifiers
[2017-04-14] MEDS ORDERED: MAGNESIUM HYDROXIDE SUSP 30 ML UDC PO PRN (18:30)
[2017-04-14] MEDS ORDERED: ONDANSETRON INJ 2 MG/ML 2 ML VIAL IV PRN (18:30)
[2017-04-14] MEDS ORDERED: ACETAMINOPHEN 325 MG TAB PO PRN (18:30)
--- NOTE | 2017-04-14 18:31 | DIAGNOSTIC IMAGING REPORT ---
SINGLE VIEW CHEST CLINICAL HISTORY: Status post pleural catheter placement. FINDINGS: An AP, portable, upright chest radiograph is compared to study performed earlier the same day 04/14/2017. Correlation is made with PET/CT dated 05/20/2016. The examination is significantly degraded by portable technique and patient rotation. The heart is enlarged and there is atherosclerotic calcification of the thoracic aorta. There is pulmonary vascular congestion. A pleural catheter is now present at the left lung base. There are small layering pleural effusions with associated consolidation. The left pleural effusion is significantly decreased in size from today's earlier examination. Bilateral pulmonary and pleural-based nodules are again noted. No pneumothorax is clearly seen. The skeletal structures are osteopenic. The bony thorax is grossly intact. Small foci of subcutaneous gas are seen along the left chest wall. IMPRESSION: 1. Cardiomegaly with evidence of congestive failure. 2. A pleural drain has been placed at the left lung base. The left pleural effusion is significantly decreased in size and no pneumothorax is clearly seen post procedure. 3. There are small residual pleural effusions with bibasilar consolidation. 4. Bilateral pulmonary and pleural-based nodules are again noted and typical in appearance for metastatic disease. Electronically signed by: Star Fernandes M.D. 04/14/2017 6:29 PM Dictated Date/Time: 04/14/2017 6:27 PM
[2017-04-14 18:33] LABS: PLEURAL FLUID TOTAL PROTEIN 2.3 g/dl
--- NOTE | 2017-04-14 18:47 | History and Physical ---
History & Physical Date & Time of Service: April 14, 2017 at 18:32 Chief Complaint: Cant Breath Primary Care Physician: Sarthak Dao History of Present Illness Source: patient, family, clinic records, hospital records This patient is a pleasant 71-year-old male that presents the emergency department complaining of increased dyspnea on exertion and weakness that has progressed over the last 2 weeks. The patient has a history of metastatic cancer to lungs and liver. The primary source is unknown. He is typically on 5 -6 L of oxygen per nasal cannula at all times. He follows with Dr. Coles and Dr. Vance who has previously had to insert a chest tube for a large pleural effusion. He has only received 2 chemotherapy treatments. It was not recommended that he pursue any further chemotherapy secondary to weakness. The patient currently denies any pain. He denies any nausea. His breathing has much improved since insertion of the Pleurx catheter in the emergency department by Dr. Vance. Past Medical/Surgical History metastatic cancer source unknown renal insufficiency possible heart arrhythmia Family History Father in his 80s of cardiac complications Social History Smoking Status: Never Smoker Smokeless Tobacco Use: Yes Alcohol Use: none Marital Status: Housing status: lives with significant other Occupational Status: retired Allergies Coded Allergies: No Known Allergies (Unverified , 04/14/17) Home Medications Scheduled Magnesium Oxide (Mag-Ox), 400 MG PO DAILY Metoprolol Tartrate (Lopressor) (Lopressor), 75 MG PO DAILY Naproxen (Aleve), 220 MG PO BID Prochlorperazine Maleate (Compazine), 1 TAB PO Q6 Sennosides-Docusate Sodium (Stool Softener), PO HS Scheduled PRN Ondansetron Hcl (Zofran), 1-2 TAB PO Q6H PRN for Nausea or Vomiting Oxycodone HCl (Oxycodone HCl), 1-2 MG PO Q6H PRN for Pain Review of Systems 10 system review performed and negative unless noted in HPI or below Physical Exam Vital Signs Date Time Temp Pulse Resp B/P Pulse Ox O2 Delivery O2 Flow Rate FiO2 04/14/17 18:07 60 22 98 Nasal Cannula 4.0 04/14/17 16:25 58 04/14/17 15:57 98 Nasal Cannula 5.0 04/14/17 15:57 98 Nasal Cannula 5.0 04/14/17 15:08 Nasal Cannula 04/14/17 15:05 36.3 60 24 90/54 100 Nasal Cannula 6.0 General Appearance: + mild distress (mild respiratory distress), + cachetic, + pertinent finding (chronically ill in appearance) Head: normocephalic Eyes: EOMI Neck: no JVD Respiratory/Chest: + pertinent finding (diminished breath sounds throughout. No wheezing.) Cardiovascular: regular rate, rhythm Abdomen/GI: normal bowel sounds, non tender, soft Extremities/Musculoskelatal: + pedal edema (diffuse pitting edema noted in all extremities.) Neurologic/Psych: oriented x 3, + pertinent finding (overall weakness. No focal deficits.) Skin: + pallor Diagnostics Laboratory Results Results Past 24 Hours Test 04/14/17 15:55 04/14/17 17:30 04/14/17 17:46 04/14/17 18:13 Range/Units Creatine Kinase MB Ratio 0-3.0 Bedside Blood Gas pH (LAB) 7.38 7.35-7.45 Bedside Blood Gas pCO2 (LAB) 45 35-46 mmHg Bedside Blood Gas pO2 (LAB) 114 80-95 mmHg Bedside Blood Gas HCO3 (LAB) 26 19-24 meq/L Bedside Blood Gas Total CO2 28 24-31 mEq/l Bedside Blood Gas Base Excess (LAB) 1.0 -9-1.8 meq/L Bedside Blood Gas O2 Saturation 98.0 90-95 % Pleural Fluid pH 7.38 7.3-7.4 Pleural Fluid Glucose 116 mg/dl Microbiology Results 04/14/17 Fungal Smear, Received Pending 04/14/17 Fungal Culture, Received Pending 04/14/17 Acid Fast Stain, Received Pending 04/14/17 Mycobacterial Culture, Received Pending 04/14/17 Gram Stain, Received Pending 04/14/17 Bacterial Culture, Received Pending Diagnostic Radiology Patient Name: JESU BALDERRAMA Unit Number: [id number] Dictated: 04/14/171624 Transcribed: 04/14/171624 EV Printed Date/Time: [~ rep prt dt]/[~ rep prt tm] [~ rep ct labl] - [~ rep ct ivnm] [facility] [place] [address] Dictated: 04/14/171624 Transcribed: 04/14/175 EV Printed Date/Time: [~ rep prt dt]/[~ rep prt tm] [~ rep ct labl] - [~ rep ct ivnm] Patient: JESU BALDERRAMA Address1: [address] [facility] Rec: [id number] Address2: Acct ID: [id number] [facility] Zip: [place] [id number] Date: 1945 Sex: M Room/Bed: Ref Phy: Sarthak Dao SC: MANOLO Att Phy: Report #: [id number] [place] Phy: Sarthak Dao Test: [id number] Admit Phy: [employer] Executive: [place] Interpreting Phy: Star Fernandes M.D. Diagnosis: CANT BREATH Ordering Phy: Jaylen Mora D.O. Service Date: 04/14/17 Admit Date: 04/14/17 MNE: [id number] CONF: DICTATED BY: Star Fernandes M.D.]] CC: Jaylen Mora D.O. Romeo, Bruno Endcc: [~ rep ct add3]] SINGLE VIEW CHEST CLINICAL HISTORY: Dyspnea. FINDINGS: An AP, portable, upright chest radiograph is compared to study dated 04/01/2017. Correlation is made with PET/CT dated 05/20/2016. The examination is significantly degraded by portable technique and patient rotation. The heart is enlarged and there is atherosclerotic calcification of the thoracic aorta. There is pulmonary vascular congestion. There are layering pleural effusions with associated consolidation, left larger than right. Bilateral pulmonary pleural-based nodules are again noted. No pneumothorax is seen. The skeletal structures are osteopenic. The bony thorax is grossly intact. IMPRESSION: 1. Cardiomegaly with evidence of congestive failure. 2. Layering pleural effusions, left larger than right with associated consolidation. This likely represents atelectasis. Clinical correlation will be required. 3. Bilateral pulmonary and pleural-based nodules are again noted and typical in appearance for metastatic disease. Electronically signed by: Star Fernandes M.D. 04/14/2017 4:27 PM Dictated Date/Time: 04/14/2017 4:25 PM The status of this report is Signed. Draft = Not yet reviewed or approved by Radiologist. Signed = Reviewed and approved by Radiologist. <AttendingPhy></AttendingPhy> <FamilyPhy>Sarthak Dao</FamilyPhy> <PrimaryPhy> Sarthak Dao</PrimaryPhy> <UnitNumber>[id number]</UnitNumber> <VisitNumber> [id number]</VisitNumber> <PatientName>JESU BALDERRAMA</PatientName> <DateOfBirth >1945</DateOfBirth> <Location>[facility]</Location> <ServiceDate>04/14/17</ ServiceDate> <MNE>ESINDI</MNE> <OrderingPhy>Jaylen Mora D.O.</OrderingPhy> < OrderingPhyMNE>f rep ord dr morton</OrderingPhyMNE> <DictatingPhyMNE>f rep dict dr morton</DictatingPhyMNE> <CCListMNE>f rep ct mne</CCListMNE> <AdmittingPhyMNE>f pt admit dr morton</AdmittingPhyMNE> <AttendingPhyMNE>f pt attend dr morton</ AttendingPhyMNE> <ConsultingPhyMNE>f pt consult dr morton</ConsultingPhyMNE> <FamilyPhyMNE>f pt fam dr morton</FamilyPhyMNE> <OtherPhyMNE>f pt other dr morton</OtherPhyMNE> < PrimaryPhyMNE>f pt prim care dr morton</PrimaryPhyMNE> <ReferringPhyMNE>f pt referring dr morton</ReferringPhyMNE> Impression Assessment and Plan 71-year-old male presented to the ED with progressive dyspnea and weakness. Found to have a large recurrent left-sided pleural effusion consistent with metastatic disease. Known metastases to lungs and liver. Primary source is reportedly unknown. Acute on chronic respiratory failure secondary to metastatic pleural effusion-s/ p pleurx catheter placement in the emergency department with Dr. Vance -Admit to medical floor -Continue O2 prn -Repeat chest x-ray in the morning -Dr. Vance following -? repeat palliative care consult. Will let up to rounding physician -Roxanol ordered for comfort Chronic kidney disease-Baseline creatinine appears to be around 1.5. Labs pending for today's visit ? report of heart arrhythmia, which is why the pt takes metoprolol. Sounds to be in NSR today. -hold metoprolol for hypotension DVT prophylaxis -TEDS, SCDs -holding off on chemical means tonight because of procedure. Consider adding heparin subQ in the AM CODE STATUS -LEVEL V DO NO RESUSCITATE RECEIVED CALL FROM REFINING STILL OPERATOR THAT HGB IS 6.2. REPEAT H&H. CONSIDER TRANSFUSION. WILL TALK WITH FAMILY ABOUT WISHES This chart was completed in part utilizing [employer] Speech Voice Recognition software. Attempts were made to minimize the grammatical errors, random word insertions, pronoun errors and incomplete sentences. Any formal questions or concerns about the content, text or information contained within the body of this dictation should be directly addressed to the provider for clarification. VTE Prophylaxis VTE Risk Assessment Done? Y/N: Yes Risk Level: Moderate Given or contraindicated: T.E.D. Stockings, SCD's Reviewed: Pt Seen/Exam by Me History Pt is feeling much improved s/p thoracentesis. No longer SOB. Feeling hungry. No chest pain. Agree with HPI/ROS as noted General Appearance: no apparent distress, thin Respiratory: no respiratory distress, decreased breath sounds Cardiovascular: normal peripheral pulses, regular rate, rhythm Gastrointestinal: non tender, soft Extremities: non-tender, pedal edema (1+ pitting) Neurologic/Psychiatric: alert, oriented x 3 Skin Characteristics: warm/dry, pallor Assessment/Plan Agree with plan as outlined above Pt with metastatic lung cancer, unknown primary s/p thoracentesis with 1500cc off for pleural effusion CT surg to monitor Hb is low, requiring transfusion Cr is elevated, but better than recent and around baseline Palliative care c/s pending
[2017-04-14] MEDS ORDERED: IV FLUIDS COMPLETED PRN (19:00)
[2017-04-14 19:17] LABS: HEMATOCRIT 19.2 % (42-52); MEAN CELL VOLUME 103.2 fL (80-100); MEAN CORPUSCULAR HEMOGLOBIN 33.3 pg (25-34); MEAN CORPUSCULAR HGB CONC 32.3 g/dl (32-36); MEAN PLATELET VOLUME 9.4 fL (7.4-10.4); PLATELET COUNT 362 K/uL (130-400); RED BLOOD COUNT 1.86 M/uL (4.7-6.1); WHITE BLOOD COUNT 20.52 K/uL (4.8-10.8)
[2017-04-14 19:22] VITALS: O2SAT 94
[2017-04-14 19:48] LABS: ANISOCYTOSIS PRESENT; BASO % 0.1 %; BASO ABS # 0.03 K/uL (0-0.2); COMPLETE YES; EOS % 0.2 %; IG% 1.3 %; LYMPH % 5.7 %; LYMPH ABS # 1.17 K/uL (1.2-3.4); MONO % 5.4 %; NEUT % 87.3 %; POLYCHROMASIA 1+
[2017-04-14 20:11] LABS: ALT/SGPT 43 U/L (12-78); AST/SGOT 44 U/L (15-37); BLOOD UREA NITROGEN 56 mg/dl (7-18); BUN/CREATININE RATIO 31.1 (10-20); CALCIUM 8.2 mg/dl (8.5-10.1); CARBON DIOXIDE 28 mmol/L (21-32); CHLORIDE 99 mmol/L (98-107); GLUCOSE 141 mg/dl (70-99); SODIUM 133 mmol/L (136-145)
--- NOTE | 2017-04-14 20:14 | SURGICAL CONSULTATION ---
DATE OF CONSULTATION: 04/14/2017 REASON FOR CONSULTATION: Enlarging left pleural effusion. HISTORY OF PRESENT ILLNESS: Mr. Fuller is an unfortunate 71-year-old male who has a metastatic prostate cancer but also has another cancer which is metastatic to his right flank. He presented with a large pleural effusion about 4 weeks ago and I performed a left thoracentesis. He improved with that and we were able to get him home with hospice. The patient is not going to do well and is not going to recover from this. He has renal insufficiency as well as this recalcitrant pleural effusion. I had a long talk with the patient's and the patient was discharged on 03/21/2017. She called today and stated that he was having increased swelling in his lower extremities and his upper extremities and was really having a hard time breathing on 5 liters. I instructed to bring the patient in the Emergency Room and saw him here today. He has a large left pleural effusion. He looks bad, but I am not surprised and I would have expected this. Back on 03/18/2017, we performed a thoracentesis and drained about 1000 mL of fluid. I inserted a chest tube as he had, what I felt may be incomplete expansion of his lung. He did has no air leak really and I was able to remove that PleurX catheter. We talked about performing a talc pleurodesis; however, we did not get malignant cells in the fluid. I went ahead and removed his chest tube. He presents now and I feel that he is a candidate for PleurX catheter. There is nothing more to keep him out of the hospital. It should be noted that this patient is not going to receive therapy for his carcinoma of the essentially unknown etiology. PAST MEDICAL HISTORY: 1. Metastatic disease of unknown primary. 2. Hypertension. 3. Recurrent left pleural effusion. PAST SURGICAL HISTORY: 1. Thoracentesis. 2. Left chest tube. 3. Appendectomy. 4. Biopsy of right flank mass. MEDICATIONS: Please see chart. ALLERGIES: No known drug allergies. SOCIAL HISTORY: The patient lives with his for almost 50 years. He has never smoked cigarettes. 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 FAMILY MEDICAL HISTORY: The patient has a son who of traumatic at the age 24. His father in his 80s, apparently had a myocardial infarction. Unsure of his mother's . REVIEW OF SYSTEMS: The patient has continued to deteriorate, I saw him just 4 weeks ago. He is edematous with what appears to be essentially anasarca. He is quite short of breath on 5 liters with marginal saturations. He denies pain per se. He has not been eating very well. He has actually gained weight, but looks more cachectic. He has just been simply very short of breath and very weak. He appears to be deteriorating. PHYSICAL EXAMINATION: GENERAL: This is a 5 feet 10 inches, 141 pound male, who is awake and alert and although he appears to be quite weak. He has temporal wasting. HEENT: His extraocular movements are intact. His sclerae are anicteric. He has no nasolabial flattening. Teeth are in poor repair. Oral mucosa is dry. NECK: Supple. I did not really feel much of cervical lymphadenopathy or supraclavicular lymphadenopathy. He has no neck vein distention. No carotid bruits. LUNGS: Decreased breath sounds in both bases, but more on the right. A large mass in his right flank area just over his right iliac crest. ABDOMEN: Has edema in the soft tissues, especially inferiorly. I cannot detect bowel sounds. HEART: He has a regular rate and rhythm with heart in the 80s. EXTREMITIES: He has edema of his lower extremities; however, he does have palpable pulses. NEUROLOGIC: He can move all extremities. He is awake, alert, but very weak. ASSESSMENT AND PLAN: He has a large left pleural effusion and multiple pulmonary nodules on x-ray. ASSESSMENT AND PLAN: Probable para malignant effusion on the left. We are going to insert a PleurX catheter. I have discussed this with the patient and his family on multiple occasions. JACKLYN
[2017-04-14 20:18] LABS: ALB/GLOB RATIO 0.8 (0.9-2); ALKALINE PHOSPHATASE 242 U/L (45-117); CKMB/CK RATIO 5.6 (0-3.0)
[2017-04-14 20:30] VITALS: Ht 182.9 cm; Wt 69.4 kg
[2017-04-14 20:38] LABS: PLEURAL FLUID APPEARANCE CLEAR; PLEURAL FLUID COLOR PALE YELLOW; PLEURAL FLUID MONONUC RELAT 64.2 %; PLEURAL FLUID POLYNUC 35.8 %; PLEURAL FLUID SOURCE LEFT LUNG; PLEURAL FLUID WBC (A) 123 /uL
--- NOTE | 2017-04-14 21:03 | OPERATIVE REPORT ---
DATE OF OPERATION: 04/14/2017 PROCEDURE: Insertion of the left PleurX catheter. SURGEON: Dr. Vance. TALENT ACQUISITION SPECIALIST: GERI Winters. ANESTHESIA: Local. SPECIFICS OF PROCEDURE: The patient in the right lateral decubitus position, the left chest was prepped and draped in the usual sterile fashion after an ultrasound had been used to localize an area where we would access this fluid. At approximately the seventh interspace posterior axillary line, a skin wheal was raised, 25-gauge needle, 1% Xylocaine with epinephrine after he had been prepped and draped. A large bore needle was used to anesthetize the deeper subcutaneous tissues and we got free flowing serous fluid. A guidewire was inserted through the needle and needle removed. This incision was opened 1 cm. Approximately 12 cm anterior and inferior to this, another skin wheal was raised 25-gauge needle, 1% Xylocaine, a 1 cm incision was made. A long needle was used to anesthetize the subcutaneous tissues between the two. A tunneler was attached to the PleurX catheter and dragged from the anterior to the posterior incision and the tunneler removed. Introducer sheath with inner cannula was slid over the guidewire posteriorly into the pleural cavity and the cannula and guidewire removed. The PleurX catheter was then slid through the peel away sheath which was removed. Two separate 3-0 silk sutures were used to anchor the catheter to the patient's skin and then two 2-0 silk sutures were used to close the skin posteriorly. 1500 mL of yellow serous fluid was drained. He did not develop any reexpansion pain. Chest x-ray is pending. I attest to the content of the Intraoperative Record and any orders documented therein. Any exceptio ns are noted below.
[2017-04-14 21:25] VITALS: BP 88/48; PULSE 62; TEMP 35.8; O2SAT 100
[2017-04-14] MEDS: MoRPHine SULFATE 5 MG/0.25 ML UDP PO PRN (23:28)
[2017-04-14 23:54] VITALS: BP 91/59; PULSE 64; TEMP 36.3; O2SAT 91
[2017-04-15] VITALS (17 sets, daily range): BP systolic 80–139; BP diastolic 50–82; PULSE 63–85; TEMP 36.1–36.6; O2SAT 92–100
[2017-04-15] MEDS ORDERED: DICLOFENAC SOD 1% GEL 100 GM TUBE EXT PRN (01:45)
[2017-04-15 02:49] LABS: HEMATOCRIT 17.1 % (42-52)
--- NOTE | 2017-04-15 03:34 | Progress Note ---
Progress Note Date of Service April 15, 2017. Progress Note HGB <6 on repeat, discussed transfusion with pt and consent was signed, 2 Units of pRBC ordered
[2017-04-15] MEDS: MoRPHine SULFATE 5 MG/0.25 ML UDP PO PRN ×3 (07:45→20:35)
[2017-04-15] MEDS: MAGNESIUM OXIDE 400 MG TAB PO SCH (07:46)
--- NOTE | 2017-04-15 08:01 | DIAGNOSTIC IMAGING REPORT ---
CHEST ONE VIEW PORTABLE HISTORY: pleural effusion COMPARISON: Chest 04/14/2017. FINDINGS: Left basilar pleural catheter is again noted. No pneumothorax. Trace right pleural effusion, unchanged. Left pleural effusion has decreased in size. Stable elevation the right hemidiaphragm. Perihilar interstitial and vascular thickening suggestive mild pulmonary edema. The heart remains mildly enlarged. Multiple bilateral pulmonary nodules are again noted. IMPRESSION: 1. Left basilar pleural drain is again noted. No definite pneumothorax. 2. Multiple bilateral pulmonary nodules are again noted. 3. Decrease in size in the trace left pleural effusion. Trace right pleural effusion persists. Electronically signed by: Surjit Ag M.D. 04/15/2017 8:00 AM Dictated Date/Time: 04/15/2017 7:58 AM
--- NOTE | 2017-04-15 09:55 | Clinical Documentation Query ---
ERASMO Wang : CLINICAL DOCUMENTATION QUERY Patient is a 71 year old male admitted for treatment of acute on chronic respiratory failure secondary to metastatic pleural effusion. H&P documentation includes "chronic kidney disease", not otherwise specified. Estimated GFR in the 30's range at baseline. As appropriate, consider documentation as suggested below in order to specify the appropriate stage of CKD. Thank you. In your clinical opinion is this patient being managed for: (x ) Chronic kidney disease, stage 3 ( ) Other explanation of clinical findings (Please Explain) ( ) Unable to determine (Please Define) ( ) Need to Discuss ( ) Not Agree The medical record reflects the following clinical findings, treatment, and risk factors. Clinical Indicators: As above Treatment: Serial chemistries Risk Factors: Age, medications Please clarify and document your clinical opinion in the progress notes and discharge summary. Terms such as "probable", "suspected", "likely", "questionable", "possible", or "still to be ruled out" are acceptable. IF IN AGREEMENT, YOU MUST DOCUMENT ABOVE DIAGNOSTIC STATEMENT IN DAILY PROGRESS NOTES AND DISCHARGE SUMMARY. This document is not part of the patient's record. Thank You, Navjot Jerry, RN [phone]
[2017-04-15 12:32] LABS: HEMATOCRIT 25.2 % (42-52); MEAN CELL VOLUME 94.4 fL (80-100); MEAN CORPUSCULAR HEMOGLOBIN 32.2 pg (25-34); MEAN CORPUSCULAR HGB CONC 34.1 g/dl (32-36); MEAN PLATELET VOLUME 8.9 fL (7.4-10.4); PLATELET COUNT 250 K/uL (130-400); RED BLOOD COUNT 2.67 M/uL (4.7-6.1); WHITE BLOOD COUNT 21.56 K/uL (4.8-10.8)
--- NOTE | 2017-04-15 12:54 | Hospitalist Progress Note ---
Hospitalist Progress Note Date of Service April 15, 2017. (Danielle Engel ., PA-C) Subjective Pt evaluation today including: conversation w/ patient, physical exam, chart review, lab review, review of studies, review of inpatient medication list Voiding: no voiding problems, no incontinence Patient states he is feeling well. +SOB- has improved since admission. Denies any melena, BRBPR, hematemesis, or active bleeding. Patient denies h/o colonoscopy or EGD; also states he does not wish to have these procedures if indicated. Denies h/o of blood loss or transfusions. Patient denies any fever, chills, sweats, lightheadedness, dizziness, vision changes, CP, palpitations, edema, wheezing, cough, abdominal pain, nausea, vomiting, diarrhea, urinary symptoms, melena, numbness/tingling, weakness, muscle/joint pain, anxiety/depression, active bleeding, or new skin discoloration/changes. During last admission on 03/18, palliative care was consulted and hospice was recommended. Patient did not wish for placement or to return to the hospital. However, patient denies being discharged w/ hospice. Discussed reconsulting palliative to further discuss hospice and outcome goals. Patient denies wanting consultation, stating "I am doing well at home." Additionally, during last admission, it was decided to stop chemotherapy. Patient does not follow w/ Dr. Coles anymore. (Danielle Engel ., PA-C) Medications Current Inpatient Medications Medications (Trade) Dose Ordered Sig/Gisel Route Start Time Stop Time Status Last Admin Dose Admin Acetaminophen (Tylenol Tab) 650 mg Q4H PRN PO 04/14/17 18:30 05/14/17 18:29 04/15/17 01:16 650 MG Magnesium Hydroxide (Milk Of Magnesia Susp) 30 ml Q6H PRN PO 04/14/17 18:30 05/14/17 18:29 Ondansetron HCl (Zofran Inj) 4 mg Q6H PRN IV 04/14/17 18:30 05/14/17 18:29 04/15/17 12:30 4 MG Morphine Sulfate (Roxanol Oral Soln) 5 mg Q4H PRN PO 04/14/17 18:30 04/28/17 18:29 04/15/17 07:45 5 MG Magnesium Oxide (Mag-Ox Tab) 400 mg DAILY PO 04/15/17 08:00 05/15/17 08:59 04/15/17 07:46 400 MG Miscellaneous (Iv Fluids Completed) 1 ea PRN PRN N/A 04/14/17 19:00 04/14/18 18:59 Diclofenac Sodium (Voltaren 1% Top Gel) 1 appln BID PRN EXT 04/15/17 01:45 05/15/17 01:44 04/15/17 07:46 1 APPLN (Danielle Engel, SHAHLA) Objective Vital Signs Date Time Temp Pulse Resp B/P Pulse Ox O2 Delivery O2 Flow Rate FiO2 04/15/17 10:55 36.2 70 20 97/64 100 5.0 04/15/17 10:45 36.4 72 22 96/61 04/15/17 09:50 36.2 67 20 108/68 04/15/17 09:30 Nasal Cannula 5.0 04/15/17 09:15 36.4 68 20 92/65 04/15/17 09:15 36.6 72 22 116/62 04/15/17 08:45 36.6 68 22 116/70 04/15/17 08:30 36.4 67 18 100/65 04/15/17 08:11 36.2 64 18 106/69 04/15/17 07:40 36.2 65 18 102/66 100 Nasal Cannula 5.0 04/15/17 06:15 36.3 69 20 102/68 04/15/17 05:45 36.1 65 20 108/67 04/15/17 05:15 36.2 68 20 97/61 04/15/17 05:00 36.2 63 22 99/66 04/15/17 04:45 36.2 68 22 91/54 04/15/17 03:58 36.2 68 14 80/50 92 Nasal Cannula 5.0 04/15/17 01:37 Nasal Cannula 5.0 04/14/17 23:54 36.3 64 12 91/59 91 Nasal Cannula 5.0 04/14/17 21:25 35.8 62 20 88/48 100 Nasal Cannula 5.0 04/14/17 20:30 Nasal Cannula 5.0 04/14/17 19:22 61 22 110/59 94 04/14/17 19:11 61 22 110/61 96 Nasal Cannula 4.0 04/14/17 18:07 60 22 98 Nasal Cannula 4.0 04/14/17 16:25 58 04/14/17 15:57 98 Nasal Cannula 5.0 04/14/17 15:57 98 Nasal Cannula 5.0 04/14/17 15:08 Nasal Cannula 04/14/17 15:05 36.3 60 24 90/54 100 Nasal Cannula 6.0 (Danielle Engel ., PA-C) Physical Exam General Appearance: no apparent distress, + thin (frail appearing ) Eyes: normal inspection, PERRL ENT: hearing grossly normal Neck: supple Respiratory/Chest: no respiratory distress, no accessory muscle use, + decreased breath sounds (throughout all lung prasad ) Cardiovascular: regular rate, rhythm Abdomen: normal bowel sounds, non tender, soft Extremities: no calf tenderness, + swelling (+1-2 pitting edema of bilateral lower extremities from mid-burr and distally ) Neurologic/Psychiatric: alert, normal mood/affect, oriented x 3 Skin: normal color, warm/dry, no rash (Danielle Engel ., PA-C) Laboratory Results Last 24 Hours Test 04/14/17 15:55 04/14/17 17:46 04/14/17 18:13 04/14/17 19:40 Creatine Kinase MB Ratio 5.6 Pleural Fluid Source LEFT LUNG Pleural Fluid Color PALE YELLOW Pleural Fluid Appearance CLEAR Pleural Fluid WBC 123 /uL Pleural Fluid RBC < 3000 /uL Pleural Fluid pH 7.38 Pleural Fluid Polynuclear WBCs % 35.8 % Pleural Fluid Mononuclear WBCs % 64.2 % Pleural Fluid Total Protein 2.3 g/dl Pleural Fluid LDH 78 IU Pleural Fluid Glucose 116 mg/dl Pleural Fluid Amylase 31 U/L White Blood Count 20.52 K/uL Red Blood Count 1.86 M/uL Hemoglobin 6.2 g/dL Hematocrit 19.2 % Mean Corpuscular Volume 103.2 fL Mean Corpuscular Hemoglobin 33.3 pg Mean Corpuscular Hemoglobin Concent 32.3 g/dl Platelet Count 362 K/uL Mean Platelet Volume 9.4 fL Neutrophils (%) (Auto) 87.3 % Lymphocytes (%) (Auto) 5.7 % Monocytes (%) (Auto) 5.4 % Eosinophils (%) (Auto) 0.2 % Basophils (%) (Auto) 0.1 % Neutrophils # (Auto) 17.92 K/uL Lymphocytes # (Auto) 1.17 K/uL Monocytes # (Auto) 1.10 K/uL Eosinophils # (Auto) 0.04 K/uL Basophils # (Auto) 0.03 K/uL RDW Standard Deviation 73.4 fL RDW Coefficient of Variation 19.7 % Immature Granulocyte % (Auto) 1.3 % Immature Granulocyte # (Auto) 0.26 K/uL Polychromasia 1+ Anisocytosis PRESENT Macrocytosis PRESENT Sodium Level 133 mmol/L Potassium Level 6.0 mmol/L Chloride Level 99 mmol/L Carbon Dioxide Level 28 mmol/L Anion Gap 6.0 mmol/L Blood Urea Nitrogen 56 mg/dl Creatinine 1.80 mg/dl Est Creatinine Clear Calc Drug Dose 33.1 ml/min Estimated GFR () 42.3 Estimated GFR (Non- 36.5 BUN/Creatinine Ratio 31.1 Random Glucose 141 mg/dl Calcium Level 8.2 mg/dl Total Bilirubin 0.3 mg/dl Aspartate Amino Transf (AST/SGOT) 44 U/L Alanine Aminotransferase (ALT/SGPT) 43 U/L Alkaline Phosphatase 242 U/L Total Creatine Kinase 115 U/L Creatine Kinase MB 6.4 ng/ml Troponin I < 0.015 ng/ml Total Protein 6.1 gm/dl Albumin 2.7 gm/dl Globulin 3.4 gm/dl Albumin/Globulin Ratio 0.8 Test 04/15/17 01:59 04/15/17 11:56 Hemoglobin 5.2 g/dL 8.6 g/dL Hematocrit 17.1 % 25.2 % White Blood Count 21.56 K/uL Red Blood Count 2.67 M/uL Mean Corpuscular Volume 94.4 fL Mean Corpuscular Hemoglobin 32.2 pg Mean Corpuscular Hemoglobin Concent 34.1 g/dl Platelet Count 250 K/uL Mean Platelet Volume 8.9 fL RDW Standard Deviation 63.9 fL RDW Coefficient of Variation 19.7 % (Danielle Engel, PA-C) Assessment and Plan 71-year-old male presented to the ED with progressive dyspnea and weakness. Found to have a large recurrent left-sided pleural effusion consistent with metastatic disease. Known metastases to lungs and liver. Primary source is reportedly unknown. Acute on chronic respiratory failure secondary to metastatic pleural effusion- s /p pleurx catheter placement on 04/14 in the ED w/ Dr. Vance: - Admit to medical floor - Continue O2 protocol - Dr. Vance following - Roxanol ordered for comfort Anemia, source unknown, ?secondary to acute blood loss vs bone marrow dysfunction from metastatic disease: - Transfused 2 u pRBCs on 04/15 - Follow H&H - Protonix 40 mg PO BID - Check retic count on pretransfusion blood - If retic count OK, will check b12/folate/iron panel - Do not see need for stool Hemoccult, patient refusing any procedures if indicated Hyperkalemia, ?secondary to CKD: - Follow PRP - Will correct PRN w/ Kayexalate Palliative care: Discussed reconsultation w/ palliative care- patient denies wanting palliative care consultation at this time CKD stage III- baseline creatinine appears to be around 1.5: Follow PRP HTN: Hold Metoprolol 75 mg daily due to hypotension GI Prophylaxis: Protonix, Maalox PRN, IV Zofran PRN, Colace and/or Milk of Mag PRN DVT prophylaxis: TEDS, SCDs- chemical means contraindication due to anemia Code Status: LEVEL V, DNR Dispo: Discharge uncertain at this time- social media strategist consulted (Danielle Engel, PA-C) i personally examined pt and verified all jansen points w Pito Engel PAC feeling better after transfusion, no noted bleeding/melena/etc ros otherwise negative except for as above vitals noted nad fatigued appearing no pallor anemia - ?blood loss vs poor marrow output - no noted blood loss, bili normal so highly doubtful hemolysis -check retic -f/u Hgb in AM -hyperkalemia - likely relates to CKD - educate on low K diet (export administrator consulted), kayexalate since refractory -effusion - post pleurX pharmacologic DVT proph contraindicated due to anemia of uncertain origin w concern possible blood loss (Marvin Bliss D.O.)
[2017-04-15 12:57] LABS: ANISOCYTOSIS PRESENT; BASO % 0.2 %; BASO ABS # 0.05 K/uL (0-0.2); COMPLETE YES; EOS % 0.4 %; IG% 1.3 %; LYMPH % 5.9 %; LYMPH ABS # 1.28 K/uL (1.2-3.4); NEUT % 83.2 %
[2017-04-15 13:15] LABS: BUN/CREATININE RATIO 31.5 (10-20); CALCIUM 7.8 mg/dl (8.5-10.1); CREATININE 1.9 mg/dl (0.60-1.40); POTASSIUM 6.1 mmol/L (3.5-5.1)
[2017-04-15] MEDS ORDERED: SODIUM POLYST. SULF SUSP 15G/60ML PO STA (13:41)
[2017-04-15] MEDS ORDERED: NURSING DECISION MEDICATION ORDER SCH (15:15)
[2017-04-15] MEDS ORDERED: MICONAZOLE NITRATE POWDER 43 GM EXT PRN (15:30)
--- NOTE | 2017-04-15 18:34 | SURGERY PROGRESS NOTE ---
DATE: 04/15/2017 SUBJECTIVE: Mr. Fuller was seen today. He is in much better spirits. He is able to breathe much better. He was quite anemic, but has improved after transfusion. His vital signs are stable. His x-ray looks great on the left side as we completely drained the fluid which was present. He remains on 5 liters of O2 but his sats are now 100%. The patient drained about 450 mL today and is definitely improved from a pulmonary standpoint. I am a bit concerned about his prerenal azotemia with a BUN of 60 and creatinine of 1.9 and a potassium which is up to 6.1 This is being managed by the medical service. At this point, he can be discharged and the nurses can drain his PleurX catheter at home when he is deemed stable enough from a medical standpoint. JACKLYN
[2017-04-15] MEDS: PANTOprazole SOD 40 MG TAB PO SCH (20:19)
[2017-04-15 20:36] LABS: HEMATOCRIT 25.6 % (42-52)
[2017-04-16 04:26] VITALS: BP 107/68; PULSE 82; TEMP 36.4; O2SAT 100
[2017-04-16] MEDS: MoRPHine SULFATE 5 MG/0.25 ML UDP PO PRN ×2 (04:46→11:29)
[2017-04-16 05:54] LABS: HEMATOCRIT 26.6 % (42-52); MEAN CELL VOLUME 95.7 fL (80-100); MEAN CORPUSCULAR HEMOGLOBIN 31.3 pg (25-34); MEAN CORPUSCULAR HGB CONC 32.7 g/dl (32-36); MEAN PLATELET VOLUME 8.7 fL (7.4-10.4); PLATELET COUNT 243 K/uL (130-400); RED BLOOD COUNT 2.78 M/uL (4.7-6.1); WHITE BLOOD COUNT 25.68 K/uL (4.8-10.8)
[2017-04-16 06:36] LABS: CALCIUM 7.9 mg/dl (8.5-10.1); CREATININE 1.9 mg/dl (0.60-1.40); MAGNESIUM 2.8 mg/dl (1.8-2.4); POTASSIUM 5.6 mmol/L (3.5-5.1)
[2017-04-16 06:38] LABS: ALB/GLOB RATIO 0.8 (0.9-2)
[2017-04-16 07:52] VITALS: BP 95/60; PULSE 74; TEMP 36.3; O2SAT 100
[2017-04-16] MEDS: MAGNESIUM OXIDE 400 MG TAB PO SCH (08:18)
[2017-04-16] MEDS: PANTOprazole SOD 40 MG TAB PO SCH (08:18)
[2017-04-16] MEDS ORDERED: SODIUM POLYST. SULF SUSP 15G/60ML PO ONE (08:45)
--- NOTE | 2017-04-16 09:08 | SURGERY PROGRESS NOTE ---
DATE: 04/16/2017 Mr. Fuller was seen today. 250 mL of fluid was drained from his PleurX catheter. His x-ray yesterday showed excellent pleural drainage. His fluid is a transudate. His hemoglobin is up to 8.7 this morning. He was 5.2 when he came in. His vital signs are improved. We are going wean off. His O2 is at 5 liters; however, since we drained him he has not been below 100%. We will allow him to be discharged from the medical service, feels it is stable. I think he looks quite good.
[2017-04-16 09:28] LABS: FERRITIN 304.7 ng/ml (8.0-388.0)
[2017-04-16] MEDS ORDERED: VLTG EXT (11:03)
[2017-04-16] MEDS ORDERED: DOCU-94 PO (11:04)
[2017-04-16] MEDS ORDERED: FERR324T PO (11:04)
--- NOTE | 2017-04-16 11:13 | Discharge Instructions ---
Discharge Instructions Date of Service Apr 16, 2017. Admission Reason for Admission: Dyspnea, Pleural Effusion, Left Discharge Discharge Diagnosis / Problem: anemia, pleural effusion, high potassium Discharge Goals Goal(s): Learn about illness, Diagnostic testing, Therapeutic intervention Activity Recommendations Activity Limitations: resume your previous activity . Instructions / Follow-Up Instructions / Follow-Up a) anemia -the biggest thing making you feel lousy was the anemia (low blood counts) - this appears to be predominantly that your bone marrow is not making new red blood cells as quickly as it should --part of this is that you do look a little low on iron - take the iron twice a day (three times a day if you can, but it can be constipating) -- since the iron can be constipating, we're also going to have you take colace twice a day as a stool softener (only skip it if you're having loose stools) --because it's likely that your counts are going to keep dropping (red cells normally after about 90 days, and transfused cells don't last as long, so since the cells normally have a short lifespan, and your bone marrow isn't making new cells fast enough, it's quite likely your numbers will go down again ) we'll want to monitor things closely - starting with labwork (CBC) tomorrow - then biweekly for the foreseeable future. if/when things look like they're not dropping further, your PCP can start to space out how often you need checked b) pleural effusion (fluid around the lung) -have home nursing drain your pleurX as directed by Dr Vance to help keep the fluid accumulation compressing your lung to a minimum c) high potassium (hyperkalemia) -with the progression of the cancer, your kidney function has also declined. with poorer kidney function, some people have difficulty clearing potassium from their bloodstream - you appear to be in that category. your numbers were pretty high (6.0) when you came in (normal is about 3.5-5.0) and now they're down to 5.6 -- this will require diet changes and frequent monitoring: -diet -- follow the undertaker assistant recommendations on avoiding potassium in your diet, this will help protect you against too much -labs - much like the blood counts, starting tomorrow we recommend you have biweekly BMP (kidney and electrolyte labs) to ensure your numbers don't keep creeping up. if they do, your PCP might need to give you medicine (kayexalate, like we did here) to bind potassium in your intestines and help you poop it out , or they might even need to send you back to the ER if your numbers are ugly enough. the goal here is with avoiding potassium in your diet we can cut off how high your levels get, and with careful monitoring we can hopefully see things before they get high enough to make you need to have to come back to the hospital. Current Hospital Diet Patient's current hospital diet: Regular Diet, Low Potassium Diet (2g K) Discharge Diet Recommended Diet: Low Potassium Diet (2g K) Pending Studies Studies pending at discharge: no Medical Emergencies . Who to Call and When: Medical Emergencies: If at any time you feel your situation is an emergency, please call 911 immediately. . Non-Emergent Contact Non-Emergency issues call your: Primary Care Provider, Oncologist . . "Provider Documentation" section prepared by Marvin Bliss. . VTE Core Measure Inpt VTE Proph given/why not?: Nilton Greenfield, SCD's
[2017-04-16 11:31] VITALS: BP 95/60; PULSE 74; TEMP 36.3; O2SAT 100
--- NOTE | 2017-04-16 18:40 | Discharge Summary ---
Discharge Summary Date of Service Apr 16, 2017. Discharge Summary Admission Date: April 14, 2017 at 18:48 Discharge Date: Apr 16, 2017 Discharge Disposition: Home with services Principal Diagnosis: anemia, malignant effusion, hyperkalemia Procedures: PROCEDURE: Insertion of the left PleurX catheter. SURGEON: Dr. Vance. HYDROLOGY TEACHER: GERI Winters. ANESTHESIA: Local. SPECIFICS OF PROCEDURE: The patient in the right lateral decubitus position, the left chest was prepped and draped in the usual sterile fashion after an ultrasound had been used to localize an area where we would access this fluid. At approximately the seventh interspace posterior axillary line, a skin wheal was raised, 25-gauge needle, 1% Xylocaine with epinephrine after he had been prepped and draped. A large bore needle was used to anesthetize the deeper subcutaneous tissues and we got free flowing serous fluid. A guidewire was inserted through the needle and needle removed. This incision was opened 1 cm. Approximately 12 cm anterior and inferior to this, another skin wheal was raised 25-gauge needle, 1% Xylocaine, a 1 cm incision was made. A long needle was used to anesthetize the subcutaneous tissues between the two. A tunneler was attached to the PleurX catheter and dragged from the anterior to the posterior incision and the tunneler removed. Introducer sheath with inner cannula was slid over the guidewire posteriorly into the pleural cavity and the cannula and guidewire removed. The PleurX catheter was then slid through the peel away sheath which was removed. Two separate 3-0 silk sutures were used to anchor the catheter to the patient's skin and then two 2-0 silk sutures were used to close the skin posteriorly. 1500 mL of yellow serous fluid was drained. He did not develop any reexpansion pain. Chest x-ray is pending. CHEST ONE VIEW PORTABLE HISTORY: pleural effusion COMPARISON: Chest 04/14/2017. FINDINGS: Left basilar pleural catheter is again noted. No pneumothorax. Trace right pleural effusion, unchanged. Left pleural effusion has decreased in size. Stable elevation the right hemidiaphragm. Perihilar interstitial and vascular thickening suggestive mild pulmonary edema. The heart remains mildly enlarged. Multiple bilateral pulmonary nodules are again noted. IMPRESSION: 1. Left basilar pleural drain is again noted. No definite pneumothorax. 2. Multiple bilateral pulmonary nodules are again noted. 3. Decrease in size in the trace left pleural effusion. Trace right pleural effusion persists. Electronically signed by: Surjit Ag M.D. 04/15/2017 8:00 AM Last Resulted CBC 04/16/17 05:37 Last Resulted BMP 04/16/17 05:37 Consultations: thoracic surgery Medication Reconciliation New Medications: Docusate Sodium (Colace) 100 Mg Cap 1 CAP PO BID for 30 Days, #60 CAP 2 Refills Ferrous Gluconate (Iron Supplement) 324 Mg Tab 324 MG PO BID, #60 TAB Diclofenac Sod (Voltaren) 100 Appln/100 Gm Gel 1 APPLN EXT BID PRN for pain , #100 GM Continued Medications: Magnesium Oxide (Mag-Ox) 400 Mg Tab 400 MG PO DAILY, TAB Metoprolol Tartrate (Lopressor) (Lopressor) 25 Mg Tab 75 MG PO DAILY, TAB 1 Refill Ondansetron Hcl (Zofran) 4 Mg Tab 1-2 TAB PO Q6H PRN for Nausea or Vomiting for 3 Days, #20 TAB 2 Refills Oxycodone HCl (Oxycodone HCl) 5 Mg Tab 1-2 MG PO Q6H PRN for Pain, #30 DOSE Prochlorperazine Maleate (Compazine) 10 Mg Tab 1 TAB PO Q6 for 7 Days, #30 TAB 3 Refills Sennosides-Docusate Sodium (Stool Softener) 1 Tab Tab PO HS Discontinued Medications: Naproxen (Aleve) 220 Mg Tab 220 MG PO BID, TAB Discharge Exam Physical Exam: General Appearance: no apparent distress Eyes: EOMI ENT: hearing grossly normal Neck: trachea midline Respiratory/Chest: no respiratory distress, no accessory muscle use Extremities: normal inspection 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, alert, normal mood/affect Skin: normal color, warm/dry Hospital Course anemia - -retic % elevated, but actual reticulocyte index low for the severity of his anemia - making marrow output likely the culprit - hypoproliferative -iron studies somewhat low - likely mostly c/w chronic disease, but given low end studies - will supplement iron in hopes of boosting RBC output -biweekly CBC, pt aware that with ongoing aggressive care, likely to need further transfusions, so the goal would be to catch anemia before so profound, possibly be able to transfuse as an outpatient -?consider benefit of trial of EPO analog -hyperkalemia - likely relates to CKD - even when K was 6.1 he did not show hyperkalemic EKG changes. educated on low K diet, check biweekly BMP along w CBC, treat if elevated; obviously eval pino including EKG if markedly elevated -malignant effusion - post pleurX - ongoing drainage as outpt expressed understanding of all of above, and stable for home, home nursing/ close PCP f/u and biweekly labs Total Time Spent: Less than 30 minutes This includes examination of the patient, discharge planning, medication reconciliation, and communication with other providers. Discharge Instructions Please refer to the electronic Patient Visit Report (Discharge Instructions) for additional information. Additional Copies To Sarthak Dao
== END 2017-04-16 14:57 | disposition home health service (06) | DRG 180 ==
LOC: ENRESERVTM → ENRESERVDT → C.EDB 15:01 → C.4E 18:48 → EDBEDREQ 18:54
PROVIDERS: ADMIT Family Medicine; ATTEND Family Medicine
PROC: 0W9B30Z Drainage of Left Pleural Cavity with Drainage Device, Percutaneous Approach (ICD-10-PCS; principal; 2017-04-14)
DX: C78.00 Secondary malignant neoplasm of unspecified lung (principal); J96.20 Acute and chronic respiratory failure, unspecified whether with hypoxia or hypercapnia; N17.9 Acute kidney failure, unspecified; J91.0 Malignant pleural effusion; C78.7 Secondary malignant neoplasm of liver and intrahepatic bile duct; C61 Malignant neoplasm of prostate; E87.5 Hyperkalemia; N18.3 Chronic kidney disease, stage 3 (moderate); I12.9 Hypertensive chronic kidney disease with stage 1 through stage 4 chronic kidney disease, or unspecified chronic kidney disease; D64.9 Anemia, unspecified; Z66 Do not resuscitate; Z79.899 Other long term (current) drug therapy

== ENCOUNTER 2017-04-30 11:05 | Inpatient (IN) | payer OTHER, MEDICARE ==
[2017-04-30] VITALS (17 sets, daily range): BP systolic 67–117; BP diastolic 40–71; PULSE 100–133; TEMP 35.8–36.5; O2SAT 84–100; Ht 170.2 cm; Wt 63.0 kg
[~2017-04-30] VITALS: Ht 170.2 cm; Wt 63.0 kg
[~2017-04-30 11:05] MED LIST changes: +DOCU-94 PO; -NAPR1TAB9 PO; +VLTG EXT
[2017-04-30] MEDS ORDERED: SODIUM CHLORIDE 0.9% 1000ML 1,000 ML IV STA (11:16)
[2017-04-30 11:30] LABS: ISTAT CREATININE 1.4 mg/dl (0.6-1.3); ISTAT HEMOGLOBIN 11.9 g/dl (14.0-18.0); ISTAT IONIZED CALCIUM 1.16 mmol/l (1.12-1.32)
[2017-04-30] MEDS ORDERED: OXGN (11:38)
[2017-04-30] MEDS ORDERED: ACET-1256 PO (11:38)
[2017-04-30] MEDS ORDERED: SODIUM CHLORIDE 0.9% IV STA (11:47)
[2017-04-30] MEDS ORDERED: PIPERACILLIN/TAZOBACTAM 4.5 GM/100ML D5W IV STA (11:54)
[2017-04-30] MEDS ORDERED: DAPTOmycin IV 378 MG in SODIUM CHLORIDE 0.9% 50ML 50 ML IV STA (11:54)
--- NOTE | 2017-04-30 12:02 | EMERGENCY ROOM VISIT NOTE ---
History Report prepared by Jet: Little Hickman Under the Supervision of: Dr. Jaylen Ku M.D. 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 The patient came to the ED via ambulance. Per EMS, the patient's was driving him in for an appointment and on the way he developed severe abdominal pain. EMS reports that the pain is mostly on the left side of the patient's abdomen. He rated his discomfort as a 10/10 in severity. The patient was given Morphine and Zofran and about 10 minutes after went into ventricular tachycardia. After going into ventricular tachycardia, the patient started to experience an altered mental status. The patient has metastatic prostate cancer that has metastasized to his lungs and liver. The patient's requested that the patient be a full code. The patient's states that the patient had his morning medications and he also had 1 oxycodone. 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 A total of 10 systems reviewed and were otherwise negative. Past Medical & Surgical Medical Problems: (1) Metastatic adenocarcinoma to prostate (2) Pleural effusion (3) Shortness of breath Family History Cancer Heart disease Social History Smoking Status: Former Smoker Marital Status: Housing Status: lives with family Occupation Status: retired Current/Historical Medications Scheduled Docusate Sodium (Colace), 1 CAP PO BID Home O2 Therapy (Oxygen), 2-4 LITERS NA CONTINOUS Magnesium Oxide (Mag-Ox), 400 MG PO DAILY Metoprolol Tartrate (Lopressor) (Lopressor), 50 MG PO DAILY Prochlorperazine Maleate (Compazine), 1 TAB PO Q6 Sennosides-Docusate Sodium (Stool Softener), PO HS Scheduled PRN Acetaminophen (Tylenol), 500 MG PO Q6 PRN for Pain Diclofenac Sod (Voltaren), 1 APPLN EXT BID PRN for pain Ondansetron Hcl (Zofran), 1-2 TAB PO Q6H PRN for Nausea or Vomiting Oxycodone HCl (Oxycodone HCl), 1-2 MG PO Q6H PRN for Pain Allergies Coded Allergies: No Known Allergies (Unverified , 04/30/17) Physical Exam Vital Signs Date Time Temp Pulse Resp B/P (MAP) Pulse Ox O2 Delivery O2 Flow Rate FiO2 04/30/17 14:30 96 22 98/56 96 BiPAP 4.0 04/30/17 14:12 BiPAP 04/30/17 13:51 98 18 103/59 96 BiPAP 50 04/30/17 12:50 112 18 75/48 96 BiPAP 50 04/30/17 12:20 113 24 82/48 100 BiPAP 50 04/30/17 12:00 117 97 50 04/30/17 11:21 93 Nasal Cannula 4.0 04/30/17 11:18 122 04/30/17 11:10 37.0 121 16 168/86 93 Nasal Cannula 4.0 Physical Exam GENERAL: Patient is a cachectic-appearing well-nourished male. Patient is mouth breathing and appears to be in acute distress. HEAD: Normocephalic atraumatic EYES: Ocular movements intact pupils equal and react to light OROPHARYNX mucous membranes are moist no exudates present no erythema or edema present NECK: Supple no nuchal rigidity CHEST: Good equal expansion LUNGS: Clear and equal to auscultation CARDIAC: Normal S1 and S2 ABDOMEN: Soft diffuse tenderness no guarding BACK: No CVA tenderness EXTREMITIES: No pain upon palpation normal muscle strength in all groups no clubbing cyanosis or edema NEURO: Patient responds to painful stimuli and to his name. Medical Decision & Procedures ER Provider Diagnostic Interpretation: CT results as stated below per my review and radiologist interpretation: CHEST CTA for AORTIC DISSECTION FINDINGS: Normal caliber thoracic aorta with no evidence for dissection. Single filling defects seen within a left upper lobe pulmonary vein. The central pulmonary arteries are patent. Scattered foci of gas within the upper abdomen consistent with pneumoperitoneum. Etiology is not clearly identified but could be from the proximal stomach on image 45 of 64. Moderate hiatus hernia. Small bilateral pleural effusions. Right supraclavicular lymphadenopathy with the largest lymph node measuring 5.3 cm. Multiple hypodense lesions within the liver consistent with metastatic disease. Dominant lesion within the hepatic dome measures 7.9 cm. Small amount ascites. Partially visualized right lateral abdominal wall mass. Right anterior chest wall mass surrounding the right second rib cartilage. Destructive soft tissue mass within the manubrium. A 3.5 cm anterior mediastinal soft tissue mass. Borderline enlarged right peritracheal lymph node measuring 12 mm. Body wall edema. Left basilar pleural catheter. Sclerotic lesion within the T11 vertebral body. No pneumothorax. Multiple bilateral pulmonary nodules consistent with metastatic disease. Dominant nodule within the right upper lobe measures 14 mm. IMPRESSION: 1. No evidence for an aortic dissection. 2. The central pulmonary arteries are patent. 3. Small amount of pneumoperitoneum. The exact etiology of the pneumoperitoneum is not clearly identified but could be due to focal perforation within the proximal stomach/hiatus hernia. Recommend endoscopy for further evaluation. 4. Small thrombus identified within the left upper lobe pulmonary vein. 5. Small bilateral pleural effusions. There is a left pleural drainage catheter. 6. Extensive metastatic disease within the chest and abdomen as described above. Electronically signed by: Surjit Ag M.D. 04/30/2017 12:22 PM Dictated Date/Time: 04/30/2017 12:[address] ANGIO ABD/PELVIS WITH CONTRAST FINDINGS: Imaging of the lung bases reveal small bilateral pleural effusions right greater than left. There are in numerable bilateral pulmonary nodules consistent with metastatic disease. There is a partially visualized right anterior chest wall mass. There is a partially visualized anterior mediastinal mass. There is mild intrahepatic biliary ductal dilatation involving the left lobe. There is diminished attenuation involving the superior liver, suspicious for a 7.5 cm hepatic mass There is cholelithiasis. No splenic masses are visualized. No pancreatic masses are visualized. Neither adrenal gland is pathologically enlarged. There is a 10 cm right-sided abdominal wall mass which appears larger on the preceding study. There is ascites present. There is diverticulosis. There is no evidence of bowel obstruction. There are diffuse atheromatous changes present within the abdominal aorta. There is no evidence of abdominal aortic aneurysm. There is no evidence of abdominal aortic dissection. There is no evidence of superior mesenteric or celiac artery stenosis. There is no evidence of hemodynamically significant iliac artery stenosis. There is a 60% stenosis of the mid right renal artery. There is a 50% stenosis of the proximal to mid left renal artery. There is mild para-aortic lymphadenopathy. There is a 1 cm T10 sclerotic lesion. There is body wall edema. A left-sided chest tube is visualized. IMPRESSION: 1. No evidence of abdominal aortic dissection or aneurysm 2. Small bilateral pleural effusions 3. Innumerable bilateral pulmonary nodules consistent with metastatic disease 4. Partially visualized right anterior chest wall mass and left anterior mediastinal mass 5. Diminished attenuation of the superior aspect of the right lobe of the liver, suspicious for a large hepatic mass 6. Ascites 7. 10 cm right lateral abdominal wall mass 8. Mild to moderate bilateral renal artery stenosis 9. Diverticulosis 10. Mild para-aortic adenopathy 11. 1 cm T10 sclerotic lesion Electronically signed by: Stephen Avalos M.D. 04/30/2017 12:05 PM Dictated Date/Time: 04/30/2017 11:55 AM Addendum: There is a tiny amount of free intraperitoneal air. There is mild infiltration of the fat surrounding the stomach. There appears to be some air within the gastric wall. It is therefore possible that this is secondary to a gastric perforation. Clinical correlation this regard is advocated. Laboratory Results 04/30/17 12:22 Red Blood Count 3.19, Mean Corpuscular Volume 99.4, Mean Corpuscular Hemoglobin 30.7, Mean Corpuscular Hemoglobin Concent 30.9, Mean Platelet Volume 8.9, Neutrophils (%) (Auto) 72.7, Lymphocytes (%) (Auto) 18.1, Monocytes (%) (Auto) 7.4, Eosinophils (%) (Auto) 0.9, Basophils (%) (Auto) 0.3, Neutrophils # (Auto) 2.37, Lymphocytes # (Auto) 0.59, Monocytes # (Auto) 0.24, Eosinophils # (Auto) 0.03, Basophils # (Auto) 0.01 04/30/17 12:22 Test 04/30/17 11:17 04/30/17 12:22 Bedside Hemoglobin 11.9 g/dl (14.0-18.0) Bedside Hematocrit 35 % (42-52) Bedside Sodium 136 mEq/L (135-144) Bedside Potassium 4.9 mEq/L (3.3-5.0) Bedside Chloride 98 mEq/L (101-112) Bedside Total CO2 28 mEq/l (24-31) Bedside Blood Urea Nitrogen 26 mg/dl (7-18) Bedside Creatinine 1.4 mg/dl (0.6-1.3) Bedside Ionized Calcium ([place]) 1.16 mmol/l (1.12-1.32) White Blood Count 3.26 K/uL (4.8-10.8) Red Blood Count 3.19 M/uL (4.7-6.1) Hemoglobin 9.8 g/dL (14.0-18.0) Hematocrit 31.7 % (42-52) Mean Corpuscular Volume 99.4 fL (80-100) Mean Corpuscular Hemoglobin 30.7 pg (25-34) Mean Corpuscular Hemoglobin Concent 30.9 g/dl (32-36) Platelet Count 399 K/uL (130-400) Mean Platelet Volume 8.9 fL (7.4-10.4) Neutrophils (%) (Auto) 72.7 % Lymphocytes (%) (Auto) 18.1 % Monocytes (%) (Auto) 7.4 % Eosinophils (%) (Auto) 0.9 % Basophils (%) (Auto) 0.3 % Neutrophils # (Auto) 2.37 K/uL (1.4-6.5) Lymphocytes # (Auto) 0.59 K/uL (1.2-3.4) Monocytes # (Auto) 0.24 K/uL (0.11-0.59) Eosinophils # (Auto) 0.03 K/uL (0-0.5) Basophils # (Auto) 0.01 K/uL (0-0.2) RDW Standard Deviation 59.7 fL (36.4-46.3) RDW Coefficient of Variation 16.4 % (11.5-14.5) Immature Granulocyte % (Auto) 0.6 % Immature Granulocyte # (Auto) 0.02 K/uL (0.00-0.02) Prothrombin Time 11.9 SECONDS (9.0-12.0) Prothromb Time International Ratio 1.1 (0.9-1.1) Activated Partial Thromboplast Time 24.0 SECONDS (21.0-31.0) Partial Thromboplastin Ratio 0.9 Anion Gap 11.0 mmol/L (3-11) Est Creatinine Clear Calc Drug Dose 36.6 ml/min Estimated GFR () 48.8 Estimated GFR (Non- 42.1 BUN/Creatinine Ratio 13.8 (10-20) Bedside Lactic Acid Venous 3.84 mmol/L (0.90-1.70) Calcium Level 8.9 mg/dl (8.5-10.1) Total Bilirubin 0.4 mg/dl (0.2-1) Aspartate Amino Transf (AST/SGOT) 38 U/L (15-37) Alanine Aminotransferase (ALT/SGPT) 30 U/L (12-78) Alkaline Phosphatase 241 U/L (45-117) Total Creatine Kinase 39 U/L (39-308) Creatine Kinase MB 2.4 ng/ml (0.5-3.6) Creatine Kinase MB Ratio 6.2 (0-3.0) Troponin I 0.020 ng/ml (0-0.045) Total Protein 5.2 gm/dl (6.4-8.2) Albumin 2.0 gm/dl (3.4-5.0) Globulin 3.2 gm/dl (2.5-4.0) Albumin/Globulin Ratio 0.6 (0.9-2) Date/Time Source Procedure Growth Status 04/30/17 00:00 Nasal MRSA DNA Surveillance Screen - Final Specimen Negative for MRSA by DNA Probe Complete Labs reviewed by ED physician. Medications Administered Medications (Trade) Dose Ordered Sig/Gisel Route Start Time Stop Time Status Last Admin Dose Admin Sodium Chloride 1,000 ml @ 999 mls/hr Q1H1M STAT IV 04/30/17 11:16 04/30/17 12:16 DC 04/30/17 11:16 999 MLS/HR Sodium Chloride 890 ml @ 999 mls/hr Q54M STAT IV 04/30/17 11:47 04/30/17 12:40 DC 04/30/17 13:46 999 MLS/HR Piperacillin Sod/ Tazobactam Sod (Zosyn Iv) 4.5 gm NOW STAT IV 04/30/17 11:54 04/30/17 11:56 DC 04/30/17 13:51 4.5 GM Daptomycin 378 mg/ Sodium Chloride 57.56 ml @ 100 mls/hr NOW STAT IV 04/30/17 11:54 04/30/17 12:28 DC 04/30/17 12:25 100 MLS/HR Norepinephrine Bitartrate (Levophed Inj) 4 mg STK-MED ONCE .ROUTE 04/30/17 13:25 04/30/17 13:26 DC 04/30/17 13:25 4 MG Norepinephrine Bitartrate 8 mg/ Dextrose 508 ml @ 0 mls/hr Q0M PRN IV 04/30/17 14:17 05/30/17 14:16 05/01/17 06:05 142 MLS/HR Fentanyl Citrate (Fentanyl Inj) 25 mcg Q1H PRN IV 04/30/17 14:30 05/14/17 14:29 04/30/17 21:59 25 MCG Lorazepam (Ativan Inj) 1 mg Q6H PRN IV 04/30/17 14:30 05/01/17 01:02 DC 05/01/17 00:58 1 MG Procedure FAST Ultrasound of Abdomen: Free fluid noted. Femoral Central Venous Catheter Indication: Access and hypotension Catheter Type: Arrow triple lumen Location: Left femoral vein Verbal consent was obtained after the risks and benefits were explained, including but not limited to intra-abdominal injury, vessel injury, bleeding, scarring, infection, pain, and bone/joint/nerve damage. At this time, the risks of the procedure are less than the risks of NOT performing the procedure. A time out was taken and the correct patient and site identified. The patient was placed in the supine position and the skin was prepped in the standard fashion with chlorhexidine and full sterile drapes applied. The proper landmarks were identified with ultrasound, anesthetized with 1% lidocaine without epinephrine, and the needle was inserted through the skin in the standard fashion. The needle was carefully advanced into blood vessel lumen with ultrasound guidance. The guidewire was placed uneventfully. The vessel is dilated and the catheter was placed. It was sutured into position. There was good blood return from all ports. The patient tolerated the procedure well and there were no complications. ECG Indication: abdominal pain, altered mental status Rate (beats per minute): 124 Rhythm: atrial fibrillation (with RVR) Findings: no acute ischemic change Comparison ECG Date: 04/14/2017 Change: atrial fibrillation has replaced normal sinus rhythm ED Course 1107: Past medical records reviewed. The patient was evaluated in room B1. A complete history and physical examination was performed. 1111: A FAST bedside ultrasound was performed at this time, which revealed free fluid in the abdomen. 1115: I called over to CT to let them know that the patient needed to come over. The patient will go over to CT once an IV is established. 1116: Ordered Sodium Chloride 1000 ml @ 999 mls/hr IV 1147: Ordered Sodium Chloride 890 ml @ 999 mls/hr IV 1154: Ordered Daptomycin 378 mg/Sodium Chloride 57.56 ml @ 100 mls/hr IV, Zosyn 4.5 gm IV 1227: Dr. Avalos - Radiology called to inform me of the patient's CT results. 1228: I reassessed the patient and updated him and his . The patient and his both want the patient to receive surgery. 1229: I discussed the patient's case with Dr. Morataya - General Surgery, he has agreed to take the patient to the OR. He asked that I consult the ICU so they are aware of the patient's case. 1233: I updated the patient and his on my conversation with Dr. Morataya. They verbalize agreement and understanding. The patient will be evaluated for further management. 1234: I discussed the patient's case with Dr. Mcdonald - Intensive Care. She is aware of the patient's case. 1300: I performed a femoral central line placement at this time. Please refer to the procedure note above for further details. 1315: Dr. Mcdonald - Intensive Bra[facility] has come down to see the patient. 1326: Dr. Vance - Thoracic Surgery is at bedside. 1330: Dr. Morataya - General Surgery is at bedside. 1345: Ordered Norepinephrine Bitartrate 4 mg/Dextrose 254 ml @ 0 mls/hr Protocol IV Medical Decision Differential diagnosis: Etiologies such as appendicitis, diverticulitis, PUD, biliary pathology, UTI, pancreatitis, obstruction, mesenteric ischemia, aortic pathology, infections, inflammatory bowel disease, renal colic, as well as others were entertained. Medication Reconciliation: I attest that I have personally reviewed the patient' s current medication list Blood Pressure Screening: Patient was found to have normal blood pressure on screening and does not require follow up. This is a 71-year-old male who presents emergency department complaining of sudden onset abdominal pain. The patient is in acute distress has hypotensive upon arrival. A small-caliber IV was established and the patient was immediately sent to CAT scan. His CAT scan is concerning for perforated stomach. For this reason and because of poor access the patient sign a consent to have central line placed. I did discuss the case with surgery as well as the ICU. The patient was started on Levophed drip. He was pancultured and started on antibiotics. Consults Time Called: 1227 Consulting Physician: Dr. Morataya - General Surgery Returned Call: 1229 I discussed the patient's case with Dr. Hood Serrano General Surgery, he has agreed to take the patient to the OR. He asked that I consult the ICU so they are aware of the patient's case. Additional Consults: Time Called: 1232 Consulted Physician: Dr. Mcdonald - Intensive Care Returned Call: 1234 Additional Comments: I discussed the patient's case with Dr. Harry Serrano Intensive Braulio. She is aware of the patient's case. Impression Primary Impression: Sepsis Additional Impression: Perforated stomach Critical Care I have personally spent greater than 90 minutes of critical care time in the direct management of this patient. This includes bedside care, interpretation of diagnostic studies, and testing, discussion with consultants, patient, and family members, and other required patient management activities. This 90 minutes is in excess of all separately billable procedures. Scribe Attestation The scribe's documentation has been prepared under my direction and personally reviewed by me in its entirety. I confirm that the note above accurately reflects all work, treatment, procedures, and medical decision making performed by me. Departure Information Dispostion Being Evaluated By Surgeon Sarthak Alonso (PCP) Patient Instructions My [facility] Problem Qualifiers Primary Impression: Sepsis Sepsis type: sepsis due to unspecified organism Qualified Codes: A41.9 - Sepsis, unspecified organism Additional Impression: Perforated stomach Gastric ulcer chronicity: acute Qualified Codes: K25.1 - Acute gastric ulcer with perforation
--- NOTE | 2017-04-30 12:06 | DIAGNOSTIC IMAGING REPORT ---
ADDENDUM Addendum: There is a tiny amount of free intraperitoneal air. There is mild infiltration of the fat surrounding the stomach. There appears to be some air within the gastric wall. It is therefore possible that this is secondary to a gastric perforation. Clinical correlation this regard is advocated. Electronically signed by: Stephen Avalos M.D. 04/30/2017 12:17 PM Dictated Date/Time: 04/30/2017 12:[address] ANGIO ABD/PELVIS WITH CONTRAST CT DOSE: CLINICAL HISTORY: Severe abdominal pain. Possible dissection. TECHNIQUE: CT angiography was performed in a dynamic helical fashion during intravenous administration 118 cc of Optiray 320. MIP imaging was performed. COMPARISON STUDY: Outside CT scan dated 01-30 FINDINGS: Imaging of the lung bases reveal small bilateral pleural effusions right greater than left. There are in numerable bilateral pulmonary nodules consistent with metastatic disease. There is a partially visualized right anterior chest wall mass. There is a partially visualized anterior mediastinal mass. There is mild intrahepatic biliary ductal dilatation involving the left lobe. There is diminished attenuation involving the superior liver, suspicious for a 7.5 cm hepatic mass There is cholelithiasis. No splenic masses are visualized. No pancreatic masses are visualized. Neither adrenal gland is pathologically enlarged. There is a 10 cm right-sided abdominal wall mass which appears larger on the preceding study. There is ascites present. There is diverticulosis. There is no evidence of bowel obstruction. There are diffuse atheromatous changes present within the abdominal aorta. There is no evidence of abdominal aortic aneurysm. There is no evidence of abdominal aortic dissection. There is no evidence of superior mesenteric or celiac artery stenosis. There is no evidence of hemodynamically significant iliac artery stenosis. There is a 60% stenosis of the mid right renal artery. There is a 50% stenosis of the proximal to mid left renal artery. There is mild para-aortic lymphadenopathy. There is a 1 cm T10 sclerotic lesion. There is body wall edema. A left-sided chest tube is visualized. IMPRESSION: 1. No evidence of abdominal aortic dissection or aneurysm 2. Small bilateral pleural effusions 3. Innumerable bilateral pulmonary nodules consistent with metastatic disease 4. Partially visualized right anterior chest wall mass and left anterior mediastinal mass 5. Diminished attenuation of the superior aspect of the right lobe of the liver, suspicious for a large hepatic mass 6. Ascites 7. 10 cm right lateral abdominal wall mass 8. Mild to moderate bilateral renal artery stenosis 9. Diverticulosis 10. Mild para-aortic adenopathy 11. 1 cm T10 sclerotic lesion Electronically signed by: Stephen Avalos M.D. 04/30/2017 12:05 PM Dictated Date/Time: 04/30/2017 11:55 AM
--- NOTE | 2017-04-30 12:23 | DIAGNOSTIC IMAGING REPORT ---
CHEST CTA for AORTIC DISSECTION CT DOSE: 1224.34 mGy.cm HISTORY: Atypical chest pain. TECHNIQUE: Multiaxial CT images of the chest were performed both before and after the intravenous administration of contrast to evaluate the aorta. Maximal intensity projection images were also obtained. COMPARISON STUDY: Outside hospital PET/CT 05/20/2016. FINDINGS: Normal caliber thoracic aorta with no evidence for dissection. Single filling defects seen within a left upper lobe pulmonary vein. The central pulmonary arteries are patent. Scattered foci of gas within the upper abdomen consistent with pneumoperitoneum. Etiology is not clearly identified but could be from the proximal stomach on image 45 of 64. Moderate hiatus hernia. Small bilateral pleural effusions. Right supraclavicular lymphadenopathy with the largest lymph node measuring 5.3 cm. Multiple hypodense lesions within the liver consistent with metastatic disease. Dominant lesion within the hepatic dome measures 7.9 cm. Small amount ascites. Partially visualized right lateral abdominal wall mass. Right anterior chest wall mass surrounding the right second rib cartilage. Destructive soft tissue mass within the manubrium. A 3.5 cm anterior mediastinal soft tissue mass. Borderline enlarged right peritracheal lymph node measuring 12 mm. Body wall edema. Left basilar pleural catheter. Sclerotic lesion within the T11 vertebral body. No pneumothorax. Multiple bilateral pulmonary nodules consistent with metastatic disease. Dominant nodule within the right upper lobe measures 14 mm. IMPRESSION: 1. No evidence for an aortic dissection. 2. The central pulmonary arteries are patent. 3. Small amount of pneumoperitoneum. The exact etiology of the pneumoperitoneum is not clearly identified but could be due to focal perforation within the proximal stomach/hiatus hernia. Recommend endoscopy for further evaluation. 4. Small thrombus identified within the left upper lobe pulmonary vein. 5. Small bilateral pleural effusions. There is a left pleural drainage catheter. 6. Extensive metastatic disease within the chest and abdomen as described above. Electronically signed by: Surjit Ag M.D. 04/30/2017 12:22 PM Dictated Date/Time: 04/30/2017 12:09 PM
[2017-04-30 12:36] LABS: BASO % 0.3 %; BASO ABS # 0.01 K/uL (0-0.2); COMPLETE YES; EOS % 0.9 %; HEMATOCRIT 31.7 % (42-52); IG% 0.6 %; LYMPH % 18.1 %; LYMPH ABS # 0.59 K/uL (1.2-3.4); MEAN CELL VOLUME 99.4 fL (80-100); MEAN CORPUSCULAR HEMOGLOBIN 30.7 pg (25-34); MEAN CORPUSCULAR HGB CONC 30.9 g/dl (32-36); MEAN PLATELET VOLUME 8.9 fL (7.4-10.4); MONO % 7.4 %; NEUT % 72.7 %; PLATELET COUNT 399 K/uL (130-400); RED BLOOD COUNT 3.19 M/uL (4.7-6.1); WHITE BLOOD COUNT 3.26 K/uL (4.8-10.8)
[2017-04-30 12:44] LABS: INR 1.1 (0.9-1.1); PARTIAL THROMBOPLASTIN RATIO 0.9; PROTHROMBIN TIME (PATIENT) 11.9 SECONDS (9.0-12.0)
[2017-04-30 12:55] LABS: CALCIUM 8.9 mg/dl (8.5-10.1)
[2017-04-30 13:00] LABS: BUN/CREATININE RATIO 13.8 (10-20); CREATININE 1.6 mg/dl (0.60-1.40); POTASSIUM 4.3 mmol/L (3.5-5.1)
[2017-04-30 13:04] LABS: ALB/GLOB RATIO 0.6 (0.9-2); CKMB/CK RATIO 6.2 (0-3.0)
[2017-04-30] MEDS ORDERED: NOREPINEPHRINE BITARTRATE 1 MG/ML 4 ML VIAL ONE (13:25)
[2017-04-30] MEDS ORDERED: NOREPINEPHRINE BIT INJ 4 MG in DEXTROSE 5% 250ML 250 ML IV PRN (13:45)
--- NOTE | 2017-04-30 14:01 | Medical Consult ---
Consultation Note Date of Service Apr 30, 2017. Consultation Note Consult Dictated #[id number]
[2017-04-30] MEDS ORDERED: TAP WATER ENEMA PR PRN (14:30)
--- NOTE | 2017-04-30 14:40 | CONSULTATION REPORT ---
DATE OF CONSULTATION: 04/30/2017 REASON FOR CONSULTATION: Abdominal pain. HISTORY OF PRESENT ILLNESS: This is a 71-year-old male well known to our service. The patient was previously seen by Dr. Vance in the past at which time he underwent a thoracentesis which was complicated by a post-procedure pneumothorax requiring chest tube. His chest tube was removed in appropriate fashion after managed in the usual fashion; however, patient's pleural fluid reaccumulated and he did require PleurX catheter insertion. It is suspected the patient's pleural effusion is due to malignancy of uncertain primary source. The patient has been caring for his PleurX catheter at home and actually had an appointment to see Dr. Vance in the office today; however, we were notified that the patient was canceling his office appointment and presenting to the Emergency Department due to severe abdominal pain. The patient did present to the Emergency Department where labs revealed he had a white blood cell count of 3.2, hemoglobin and hematocrit were 9.8 and 31.7, platelet count was 399,000. Coagulation studies were all within normal range. Chemistry profile showed sodium and potassium were normal. BUN and creatinine were 22 and 1.6. He was noted to have an albumin level of 2.0 and a lactic acid level 3.84. The patient did have a CT scan of the chest and abdomen due to atypical chest pain, which revealed no evidence of aortic dissection. There was no evidence of pulmonary emboli, small amount of pneumoperitoneum was noted and there was concern for focal perforation at the proximal stomach gastric hiatus. Small bilateral pleural effusions were noted and a preexisting left PleurX catheter was noted to be in place. Extensive metastatic disease in the chest and abdomen was noted. For specific details, please refer to the radiologist's report on this study. The treating physician in the Emergency Department placed a central line and the patient was noted to be markedly hypotensive with a blood pressure systolic in 70s upon presentation, the patient was therefore placed on broad-spectrum antibiotics in the form of Zosyn and daptomycin and also placed on pressor support in the form of Levophed. The patient was first evaluated by Dr. Kenneth Morataya of general surgery; however, due to the location of the suspected perforation and his preexisting relationship with Dr. Vance we were asked to participate in his care. At the time of our encounter with the patient, he was unable to provide any additional information other than he had severe abdominal pain that began earlier today. PAST MEDICAL HISTORY: Includes the followin. Metastatic cancer of unknown primary source. 2. Hypertension. 3. History of recurrent left pleural effusion. PAST SURGICAL HISTORY: Includes 1. Thoracentesis. 2. Left tube thoracostomy. 3. Left PleurX catheter. 4. Appendectomy. 5. Biopsy of right flank mass. ALLERGIES: He has no known medication allergies. SOCIAL HISTORY: The patient has been for approximately 50 years. He is a lifetime nonsmoker. 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 FAMILY HISTORY: Positive for coronary artery disease. OUTPATIENT MEDICATION REGIMEN: Includes the followin. Tylenol as needed. 2. Voltaren gel as needed. 3. Colace 100 mg twice daily. 4. Oxygen 2-4 liters via nasal cannula. 5. Mag ox 400 mg daily. 6. Lopressor 50 mg daily. 7. As needed Zofran. 8. Oxycodone as needed. 9. Compazine as needed. REVIEW OF SYSTEMS: As noted above. PHYSICAL EXAMINATION: VITAL SIGNS: The patient is afebrile with temperature 37.0, pulse is 90 and regular, respirations are 18 and unlabored, blood pressure is 75/48, pulse ox is 96% on 50% FIO2 via BiPAP. GENERAL: The patient is alert to person. He appears to be uncomfortable. HEENT: Head is atraumatic, normocephalic. Eyes: His pupils are equal, round and reactive to light and accommodation. Extraocular motions are intact. Ears: Auditory acuity is grossly intact. Nose: His nasal patency was unable to be assessed due to BiPAP use. Mouth: Unable to be examined due to BiPAP use. NECK: Supple without tracheal shift. CARDIOVASCULAR: Regular rate and rhythm. LUNGS: Revealed breath sounds were present bilaterally without wheezing. ABDOMEN: Had diffuse tenderness noted with palpation. EXTREMITIES: Revealed no cyanosis or clubbing of extremities NEUROLOGIC: Revealed the patient could move all 4 extremities without focal neurologic deficits. DIAGNOSTIC DATA: As noted above. IMPRESSION: A 71-year-old male with metastatic cancer of unknown primary source with suspected perforation at the gastric hiatus. PLAN: Dr. Vance had a lengthy discussion with various physicians including Dr. Arellano for anesthesia, Dr. Morataya of general surgery and Dr. Mcdonald of critical care medicine. He also had an extensive discussion with the patient's who was present in the hospital. He has indicated to her that this is a life threatening problem that he is unlikely to survive from. He even expressed to her that he would undoubtably have difficulty tolerating any type of surgical intervention. He did note to the that if the patient was taken to surgery the likelihood of him being extubated postoperatively was unlikely. Given all these facts and the extensive nature of the patient's metastatic disease, the decision was made to keep the patient comfortable and make him a do not resuscitate. The patient's indicates that he will not be placed on a ventilator. However, he will be supported with pressors until further family members can arrive. The patient will therefore be admitted on the service of the hospitalist and we will continue to follow along while he is in the hospital. Again, the patient is noted to be a do not resuscitate in accordance with his and his family's wishes.
[2017-04-30] MEDS ORDERED: ALBUTEROL 0.083% NEBU SOLN 3 ML VIAL INH PRN (14:45)
--- NOTE | 2017-04-30 14:45 | SURGICAL CONSULTATION ---
DATE OF CONSULTATION: 04/30/2017 Consult from ER physician for acute abdomen and septic shock. Spent one hour orchestrating care for the patient. HISTORY OF PRESENT ILLNESS: The patient is a 71-year-old male, brought to the Emergency Room by his after experiencing severe abdominal pain, found in the Emergency Room to be hypotensive and tachycardic and on CT scan evidence of likely proximal gastric or esophageal perforation. The patient has a history of metastatic adenocarcinoma of unknown origin, which may be prostate or cholangiocarcinoma, who has metastases to the abdomen, liver, lungs, and abdominal wall, who has been treated in the past by Dr. Coles with chemotherapy with the last being earlier this year. The patient became so weak, he was unable to undergo any more chemo which would not have helped and it was discussed with the possibility of hospice care, but the patient apparently has not had this at this point. The patient also has bilateral pleural effusions and ascites with evidence of intraabdominal tumor. He has a very small amount of free air with some perigastric inflammation. FAMILY AND SOCIAL HISTORY: Noncontributory. MEDICATIONS: Include home oxygen and Compazine. ALLERGIES: He has no known allergies. PHYSICAL EXAMINATION: GENERAL: He is in the ER responsive with a mask in place. He does appear to be in some distress secondary to his abdominal pain and hypotension. He is extremely cachectic. VITAL SIGNS: His blood pressure is 70/40 and pulse is 120. CHEST: Shows bilateral rales. ABDOMEN: Mildly distended and has upper abdominal pain to palpation. EXTREMITIES: Without significant edema. He has no rashes. ASSESSMENT AND PLAN: A 71-year-old male with metastatic adenocarcinoma with a possible gastric perforation. The patient is in very difficult situation and that I am unsure he would even tolerate any anesthetic and even if we were able to get him through the operation, would be on a ventilator on pressors and we would not address any issue which has brought him to the hospital with his metastatic disease. I did ask Dr. Mcdonald, Dr. Arellano and Dr. Vance to come, help me manage the patient. Dr. Vance does know the patient and his and are now in discussions with possible comfort measures versus proceeding with potential invasive surgery. [facility] HOSPITALCassie
--- NOTE | 2017-04-30 15:28 | History and Physical ---
History & Physical Date & Time of Service: Apr 30, 2017 at 14:15 Chief Complaint: Abd Pain Primary Care Physician: Sarthak Dao History of Present Illness Source: patient, family, other 71 y/o M with advanced, metastatic prostate CA. Presenting from home with increasing acute severe abdominal pain. EMS was summoned to the house. On route to the hospital he developed VT and AMS. He presented to the ER hypotensive and confused. His rhythm at the time displayed AF and then reverted to a sinus rhythm. He was sent for an emergent CT abdomen. This revealed a small amount of pneumoperitoneum likely due to due focal perforation within the proximal stomach/hiatus hernia. The pt was initially a full code and was emergently evaluated by surgery however after careful review and discussion with the family, comfort measures only will be instituted. Despite this we will attempt to maintain his SBP > 85 for the next few hours so that he can be seen by relatives who are travelling in. 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 3) HTN Family History Cancer Heart disease Social History Smoking Status: Former Smoker Marital Status: Housing status: lives with significant other Occupational Status: retired Allergies Coded Allergies: No Known Allergies (Unverified , 04/30/17) Home Medications Scheduled Docusate Sodium (Colace), 1 CAP PO BID Home O2 Therapy (Oxygen), 2-4 LITERS NA CONTINOUS Magnesium Oxide (Mag-Ox), 400 MG PO DAILY Metoprolol Tartrate (Lopressor) (Lopressor), 50 MG PO DAILY Prochlorperazine Maleate (Compazine), 1 TAB PO Q6 Sennosides-Docusate Sodium (Stool Softener), PO HS Scheduled PRN Acetaminophen (Tylenol), 500 MG PO Q6 PRN for Pain Diclofenac Sod (Voltaren), 1 APPLN EXT BID PRN for pain Ondansetron Hcl (Zofran), 1-2 TAB PO Q6H PRN for Nausea or Vomiting Oxycodone HCl (Oxycodone HCl), 1-2 MG PO Q6H PRN for Pain Review of Systems Constitutional: + weakness, + fatigue, No fever, No chills, No sweats Eyes: No worsening of vision ENT: No hearing loss, No unusual epistaxis, No nasal symptoms Respiratory: No cough, No sputum, No wheezing Cardiovascular: No chest pain, No orthopnea, No PND Abdomen: + pain, + nausea, + constipation Musculoskeletal: No joint pain, No muscle pain Genitourinary - Male: + dysuria, No urinary frequency, No urinary urgency Neurologic: No memory loss, No paralysis Psychiatric: + depression symptoms, No anhedonism Endocrine: No fatigue Hematologic / Lymphatic: No abnormal bleeding/bruising Integumentary: No rash Allergic / Immunologic: No environmental allergies Physical Exam Vital Signs Date Time Temp Pulse Resp B/P (MAP) Pulse Ox O2 Delivery O2 Flow Rate FiO2 04/30/17 13:51 98 18 103/59 96 BiPAP 50 04/30/17 12:50 112 18 75/48 96 BiPAP 50 04/30/17 12:20 113 24 82/48 100 BiPAP 50 04/30/17 12:00 117 97 50 04/30/17 11:21 93 Nasal Cannula 4.0 04/30/17 11:18 122 04/30/17 11:10 37.0 121 16 168/86 93 Nasal Cannula 4.0 General Appearance: + pertinent finding (Thin, lethargic elederly male - mild distress) Head: normocephalic, + pertinent finding (Appears dusky, lawrence in color) Eyes: normal inspection ENT: normal ENT inspection Neck: supple, thyroid normal, no JVD Respiratory/Chest: chest non-tender, lungs clear, normal breath sounds, no accessory muscle use Cardiovascular: regular rate, rhythm, no JVD, no murmur, + tachycardia Abdomen/GI: + pertinent finding (DIstended tender abdomen - decrease bowel sounds) Back: normal inspection, no CVA tenderness, no muscle spasm, normal range of motion Extremities/Musculoskelatal: no calf tenderness, normal capillary refill, + pertinent finding (ROM limited by current dicomfort) 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, no motor/sensory deficits, alert, normal mood/affect, normal reflexes Diagnostics Laboratory Results Results Past 24 Hours Test 04/30/17 11:17 04/30/17 12:22 Range/Units Bedside Hemoglobin 11.9 14.0-18.0 g/dl Bedside Hematocrit 35 42-52 % Bedside Sodium 136 135-144 mEq/L Bedside Potassium 4.9 3.3-5.0 mEq/L Bedside Chloride 98 101-112 mEq/L Bedside Total CO2 28 24-31 mEq/l Anion Gap 16.0 11.0 3-11 mmol/L Bedside Blood Urea Nitrogen 26 7-18 mg/dl Bedside Creatinine 1.4 0.6-1.3 mg/dl Bedside Glucose (other) 144 70-99 mg/dl Bedside Ionized Calcium ([place]) 1.16 1.12-1.32 mmol/l White Blood Count 3.26 4.8-10.8 K/uL Red Blood Count 3.19 4.7-6.1 M/uL Hemoglobin 9.8 14.0-18.0 g/dL Hematocrit 31.7 42-52 % Mean Corpuscular Volume 99.4 80-100 fL Mean Corpuscular Hemoglobin 30.7 25-34 pg Mean Corpuscular Hemoglobin Concent 30.9 32-36 g/dl Platelet Count 399 130-400 K/uL Mean Platelet Volume 8.9 7.4-10.4 fL Neutrophils (%) (Auto) 72.7 % Lymphocytes (%) (Auto) 18.1 % Monocytes (%) (Auto) 7.4 % Eosinophils (%) (Auto) 0.9 % Basophils (%) (Auto) 0.3 % Neutrophils # (Auto) 2.37 1.4-6.5 K/uL Lymphocytes # (Auto) 0.59 1.2-3.4 K/uL Monocytes # (Auto) 0.24 0.11-0.59 K/uL Eosinophils # (Auto) 0.03 0-0.5 K/uL Basophils # (Auto) 0.01 0-0.2 K/uL RDW Standard Deviation 59.7 36.4-46.3 fL RDW Coefficient of Variation 16.4 11.5-14.5 % Immature Granulocyte % (Auto) 0.6 % Immature Granulocyte # (Auto) 0.02 0.00-0.02 K/uL Prothrombin Time 11.9 9.0-12.0 SECONDS Prothromb Time International Ratio 1.1 0.9-1.1 Activated Partial Thromboplast Time 24.0 21.0-31.0 SECONDS Partial Thromboplastin Ratio 0.9 Sodium Level 138 136-145 mmol/L Potassium Level 4.3 3.5-5.1 mmol/L Chloride Level 101 98-107 mmol/L Carbon Dioxide Level 26 21-32 mmol/L Blood Urea Nitrogen 22 7-18 mg/dl Creatinine 1.60 0.60-1.40 mg/dl Est Creatinine Clear Calc Drug Dose 36.6 ml/min Estimated GFR () 48.8 Estimated GFR (Non- 42.1 BUN/Creatinine Ratio 13.8 10-20 Random Glucose 126 70-99 mg/dl Bedside Lactic Acid Venous 3.84 0.90-1.70 mmol/L Calcium Level 8.9 8.5-10.1 mg/dl Total Bilirubin 0.4 0.2-1 mg/dl Aspartate Amino Transf (AST/SGOT) 38 15-37 U/L Alanine Aminotransferase (ALT/SGPT) 30 12-78 U/L Alkaline Phosphatase 241 45-117 U/L Total Creatine Kinase 39 39-308 U/L Creatine Kinase MB 2.4 0.5-3.6 ng/ml Creatine Kinase MB Ratio 6.2 0-3.0 Troponin I 0.020 0-0.045 ng/ml Total Protein 5.2 6.4-8.2 gm/dl Albumin 2.0 3.4-5.0 gm/dl Globulin 3.2 2.5-4.0 gm/dl Albumin/Globulin Ratio 0.6 0.9-2 Microbiology Results 04/30/17 Blood Culture, Received Pending 04/30/17 Blood Culture, Received Pending Diagnostic Radiology CT abdomen 1. No evidence for an aortic dissection. 2. The central pulmonary arteries are patent. 3. Small amount of pneumoperitoneum. The exact etiology of the pneumoperitoneum is not clearly identified but could be due to focal perforation within the proximal stomach/hiatus hernia. Recommend endoscopy for further evaluation. 4. Small thrombus identified within the left upper lobe pulmonary vein. 5. Small bilateral pleural effusions. There is a left pleural drainage catheter. 6. Extensive metastatic disease within the chest and abdomen as described above. Impression Assessment and Plan 1 y/o M with advanced, metastatic prostate CA. Presenting from home with increasing acute severe abdominal pain. EMS was summoned to the house. On route to the hospital he developed VT and AMS. He presented to the ER hypotensive and confused. His rhythm at the time displayed AF and then reverted to a sinus rhythm. He was sent for an emergent CT abdomen. This revealed a small amount of pneumoperitoneum likely due to due focal perforation within the proximal stomach/hiatus hernia. The pt was initially a full code and was emergently evaluated by surgery however after careful review and discussion with the family, comfort measures only will be instituted. Despite this we will attempt to maintain his SBP > 85 for the next few hours so that he can be seen by relatives who are travelling in. We have placed the pt on the ICU with Levophed and PRN narcotics, breathing treatment, Ativan and Scopolamine for the time being. We are awaiting additional instruction from family as to potential DC of pressor support. DNR - no prophylaxis Total time for this admit including critical care time - discussion with pt and attendings, review of labs and records - 41min Level of Care Critical Care Resuscitation Status DO NOT RESUSCITATE
[2017-04-30] MEDS: FENTANYL CITRATE INJ 50 MCG/1 ML 2 ML VIAL IV PRN ×4 (15:32→21:59)
--- NOTE | 2017-04-30 15:47 | SURGICAL CONSULTATION ---
DATE OF CONSULTATION: 04/30/2017 DATE OF CONSULTATION: 04/30/2017. HISTORY OF PRESENT ILLNESS: Mr. Fuller was seen today in the Emergency Room at the request of Dr. Kenneth Morataya. Dr. Morataya had been consulted as the patient had abdominal pain and was admitted and found to have some air around his hiatal hernia actually in his lower thorax. This patient has widely metastatic poorly differentiated carcinoma and we are not quite clear on the origin. He has a huge flank mass on the right and we have actually drained the pleural effusion of his in the past. I was scheduled to see the patient today in followup for this. The patient developed abdominal pain and he is quite ill and looks quite bad even compared to 2 weeks ago. He has more temporal wasting. He has ascites in his abdomen. The flank mass even appears a bit larger on the right. Mr. Fuller has expressed desire not to be intubated. Question has been raised as to now whether we should take him to the operating room. I discussed this in detail with Dr. Morataya. One option would be to do a laparotomy which I feel would be a very poor choice. Another option would be to do a thoracoscopy and open up the mediastinal tissues widely. We could then drain him. I had a long discussion with the patient's and have explained quite frankly that I do not think we should do any of these things with Mr. Fuller. I believe he is at end of life. I think this perforation is going to hasten things up, but he was already made hospice and was at the end of his rope as it was. At this point, we were simply going to keep him comfortable. He has 2 children who are on the way to the hospital and we will put him on alpha agents to keep him going until they get here. For specifics of our full history and physical, please refer to Mr. Rishi Thurston's full note.
[2017-04-30] MEDS: CHECK SCOPOLAMINE PATCH PLACEMENT SCH ×2 (16:00→23:36)
--- NOTE | 2017-04-30 16:54 | Progress Note ---
Progress Note Date of Service Apr 30, 2017. Progress Note Budget Coordinator: I was called by Dr. Morataya from the Emergency Department to help evaluate this unfortunate gentleman with widely metastatic adeno ca who presented with free air. He was hypotensive and being placed on levophed. I was unable to talk with him as a central line was being placed. There was discussion amongst Dr. Vance, Dr. Morataya, Dr. Arellano and myself regarding options moving forward. At this point, per Dr. Vicente and the notes, the patient has opted for comfort care. He is on levophed and bipap so he was brought to the ICU in anticipation of arrival of family members and friends and to continue the levophed until such time. I have not been consulted formally and there are no critical care issues so I will not see the patient. I have discussed this with Dr. Vicente. Please call with any questions or concerns.
[2017-04-30] MEDS ORDERED: SCOPOLAMINE 1.5 MG TDSY TD PRN (17:00)
[2017-04-30] MEDS: NOREPINEPHRINE BIT INJ 8 MG in DEXTROSE 5% 500ML 500 ML IV PRN ×2 (19:11→23:32)
[2017-04-30] MEDS: LORAZEPAM 2 MG/ML 1 ML VIAL IV PRN (19:12)
[2017-05-01] VITALS (20 sets, daily range): BP systolic 62–99; BP diastolic 37–71; PULSE 71–124; O2SAT 70–95
[2017-05-01] MEDS: LORAZEPAM 2 MG/ML 1 ML VIAL IV PRN (00:58)
[2017-05-01] MEDS ORDERED: NURSING VERBAL MED ORDER ONE (01:00)
[2017-05-01] MEDS ORDERED: LORAZEPAM 2 MG/ML 1 ML VIAL IV PRN (01:15)
[2017-05-01] MEDS: NOREPINEPHRINE BIT INJ 8 MG in DEXTROSE 5% 500ML 500 ML IV PRN ×4 (02:54→13:45)
[2017-05-01] MEDS: MoRPHine SULFATE 2 MG/ML CARP IV PRN ×2 (04:17→12:25)
[2017-05-01] MEDS: CHECK SCOPOLAMINE PATCH PLACEMENT SCH ×2 (07:52→16:25)
--- NOTE | 2017-05-01 08:44 | Clinical Documentation Query ---
CELSO Danielson : CLINICAL DOCUMENTATION QUERY Patient is a 71 year old male presenting with severe abdominal pain, subsequently determined to have a possible focal perforation at the proximal stomach gastric hiatus. Patient was admitted to ICU and was initiated on Levophed for BP support. He recieved multiple IV NSS boluses in the ED and was initially treated with IV Zosyn and IV Daptomycin. Serum lactic acid of 3.84 mmol/L. Hyperglycemic, elevated AST, Alk Phos, BUN and creatinine. Blood cultures pending. As appropriate, consider documentation as suggested below to capture the appropriate severity of illness and associated risk of mortality in your patient. In your clinical opinion is this patient being managed for: ( x ) Septic shock secondary to gastric perforation ( ) Other explanation of clinical findings (Please Explain) ( ) Unable to determine (Please Define) ( ) Need to Discuss ( ) Not Agree The medical record reflects the following clinical findings, treatment, and risk factors. Clinical Indicators: As above Treatment:Patient was admitted to ICU and was initiated on Levophed for BP support. He recieved multiple IV NSS boluses in the ED and was initially treated with IV Zosyn and IV Daptomycin. Serum lactic acid of 3.84 mmol/L. Hyperglycemic, elevated AST, Alk Phos, BUN and creatinine. Blood cultures pending. Risk Factors: Perforated viscous Please clarify and document your clinical opinion in the progress notes and discharge summary. Terms such as "probable", "suspected", "likely", "questionable", "possible", or "still to be ruled out" are acceptable. IF IN AGREEMENT, YOU MUST DOCUMENT ABOVE DIAGNOSTIC STATEMENT IN DAILY PROGRESS NOTES AND DISCHARGE SUMMARY. This document is not part of the patient's record. Thank You, Navjot Jerry, CRYSTAL [phone]
--- NOTE | 2017-05-01 10:49 | Family Medicine Progress Note ---
Progress Note Date of Service May 01, 2017. Subjective Pt evaluation today including: conversation w/ patient, conversation w/ family , physical exam Patient was comfortable, discussed care with . She wanted to keep pressors on until family arrived, which should be around 11am. She said she "doesn't want to decide to turn off the pressors" so she "doesnt feel like she kills him ". We discussed how if comfort is our goal, we should consider stopping pressors as it can cause distress, and he would be more comfortable on med/ surg. She said no to changing the current plan. He displays no non-verbal signs of pain. Additional Comments: ROS negative unless noted in HPI Medications Current Inpatient Medications Medications (Trade) Dose Ordered Sig/Gisel Route Start Time Stop Time Status Last Admin Dose Admin Norepinephrine Bitartrate 8 mg/ Dextrose 508 ml @ 0 mls/hr Q0M PRN IV 04/30/17 14:17 05/30/17 14:16 05/01/17 10:06 142 MLS/HR Fentanyl Citrate (Fentanyl Inj) 25 mcg Q1H PRN IV 04/30/17 14:30 05/14/17 14:29 04/30/17 21:59 25 MCG Scopolamine (Transderm-Scop Patch) 1.5 mg Q72H PRN TD 04/30/17 17:00 05/30/17 16:59 Miscellaneous (Remove Transderm-Scop Patch) 1 ea Q72H N/A 05/03/17 17:00 06/02/17 16:59 Miscellaneous Information (Check Scopolamine Patch Placement) 1 ea QS N/A 04/30/17 16:00 05/30/17 15:59 05/01/17 07:52 1 EA Albuterol Sulfate (Ventolin 0.083% 2.5MG/3ML Neb) 2.5 mg Q6R PRN INH 04/30/17 14:45 05/30/17 14:44 Morphine Sulfate (MoRPHine SULFATE INJ) 2 mg Q2H PRN IV 05/01/17 01:00 05/15/17 00:59 05/01/17 04:17 2 MG Lorazepam (Ativan Inj) 1 mg Q2H PRN IV 05/01/17 01:15 05/31/17 01:14 Objective Vital Signs Date Time Temp Pulse Resp B/P (MAP) Pulse Ox O2 Delivery O2 Flow Rate FiO2 05/01/17 10:00 102 15 84/50 05/01/17 10:00 102 15 05/01/17 09:00 101 14 85/50 90 05/01/17 08:00 102 13 82/50 90 05/01/17 08:00 102 13 82/50 (61) 05/01/17 08:00 90 Nasal Cannula 4.0 05/01/17 07:02 109 19 86/52 05/01/17 06:02 112 23 91/51 05/01/17 05:02 119 23 92/49 94 05/01/17 04:02 124 26 90/54 92 05/01/17 04:00 92 Nasal Cannula 4.0 05/01/17 03:02 115 24 99/48 92 05/01/17 02:03 121 24 94/54 92 05/01/17 01:02 108 19 87/71 94 05/01/17 00:44 116 25 85/59 95 05/01/17 00:02 110 22 79/63 90 04/30/17 23:59 95 Nasal Cannula 4.0 04/30/17 23:59 36.5 04/30/17 23:02 100 18 100/44 90 04/30/17 22:02 125 27 75/55 97 04/30/17 21:02 133 17 92/54 91 04/30/17 20:32 133 16 89/71 97 04/30/17 20:02 126 20 117/57 100 04/30/17 20:00 99 Nasal Cannula 4.0 04/30/17 20:00 36.3 04/30/17 19:32 118 31 74/50 100 04/30/17 19:02 119 26 67/42 94 04/30/17 19:00 119 26 67/42 (50) 84 04/30/17 18:00 114 28 97/58 (71) 94 04/30/17 17:30 114 26 81/54 (63) 93 04/30/17 17:00 111 28 80/63 (69) 95 04/30/17 16:30 105 19 73/57 (62) 98 04/30/17 16:15 108 17 87/54 (65) 100 04/30/17 16:00 35.8 112 17 73/40 (51) 99 Nasal Cannula 4.0 04/30/17 15:30 102 22 102/56 100 04/30/17 15:00 106 18 103/66 100 Nasal Cannula 4.0 04/30/17 14:30 96 22 98/56 96 BiPAP 4.0 04/30/17 14:12 BiPAP 04/30/17 13:51 98 18 103/59 96 BiPAP 50 04/30/17 12:50 112 18 75/48 96 BiPAP 50 04/30/17 12:20 113 24 82/48 100 BiPAP 50 04/30/17 12:00 117 97 50 04/30/17 11:21 93 Nasal Cannula 4.0 04/30/17 11:18 122 04/30/17 11:10 37.0 121 16 168/86 93 Nasal Cannula 4.0 Physical Exam General Appearance: WD/WN, no apparent distress, + cachetic Eyes: normal inspection Respiratory/Chest: lungs clear, normal breath sounds, no respiratory distress Cardiovascular: regular rate, rhythm, no murmur Abdomen: non tender, soft Neurologic/Psychiatric: + pertinent finding (sleeping, comfortable) Laboratory Results Last 24 Hours Test 04/30/17 11:17 04/30/17 12:22 04/30/17 23:22 04/30/17 23:30 Bedside Hemoglobin 11.9 g/dl Bedside Hematocrit 35 % Bedside Sodium 136 mEq/L Bedside Potassium 4.9 mEq/L Bedside Chloride 98 mEq/L Bedside Total CO2 28 mEq/l Anion Gap 16.0 mmol/L 11.0 mmol/L Bedside Blood Urea Nitrogen 26 mg/dl Bedside Creatinine 1.4 mg/dl Bedside Glucose (other) 144 mg/dl 641 mg/dl 198 mg/dl Bedside Ionized Calcium ([place]) 1.16 mmol/l White Blood Count 3.26 K/uL Red Blood Count 3.19 M/uL Hemoglobin 9.8 g/dL Hematocrit 31.7 % Mean Corpuscular Volume 99.4 fL Mean Corpuscular Hemoglobin 30.7 pg Mean Corpuscular Hemoglobin Concent 30.9 g/dl Platelet Count 399 K/uL Mean Platelet Volume 8.9 fL Neutrophils (%) (Auto) 72.7 % Lymphocytes (%) (Auto) 18.1 % Monocytes (%) (Auto) 7.4 % Eosinophils (%) (Auto) 0.9 % Basophils (%) (Auto) 0.3 % Neutrophils # (Auto) 2.37 K/uL Lymphocytes # (Auto) 0.59 K/uL Monocytes # (Auto) 0.24 K/uL Eosinophils # (Auto) 0.03 K/uL Basophils # (Auto) 0.01 K/uL RDW Standard Deviation 59.7 fL RDW Coefficient of Variation 16.4 % Immature Granulocyte % (Auto) 0.6 % Immature Granulocyte # (Auto) 0.02 K/uL Prothrombin Time 11.9 SECONDS Prothromb Time International Ratio 1.1 Activated Partial Thromboplast Time 24.0 SECONDS Partial Thromboplastin Ratio 0.9 Sodium Level 138 mmol/L Potassium Level 4.3 mmol/L Chloride Level 101 mmol/L Carbon Dioxide Level 26 mmol/L Blood Urea Nitrogen 22 mg/dl Creatinine 1.60 mg/dl Est Creatinine Clear Calc Drug Dose 36.6 ml/min Estimated GFR () 48.8 Estimated GFR (Non- 42.1 BUN/Creatinine Ratio 13.8 Random Glucose 126 mg/dl Bedside Lactic Acid Venous 3.84 mmol/L Calcium Level 8.9 mg/dl Total Bilirubin 0.4 mg/dl Aspartate Amino Transf (AST/SGOT) 38 U/L Alanine Aminotransferase (ALT/SGPT) 30 U/L Alkaline Phosphatase 241 U/L Total Creatine Kinase 39 U/L Creatine Kinase MB 2.4 ng/ml Creatine Kinase MB Ratio 6.2 Troponin I 0.020 ng/ml Total Protein 5.2 gm/dl Albumin 2.0 gm/dl Globulin 3.2 gm/dl Albumin/Globulin Ratio 0.6 Assessment and Plan 71 yo M with metastatic cancer, unknown primary, who is now on comfort care. Initially presented with sepsis from abdominal infection. Remains on pressors until family arrives. Plan: Remains on comfort care - does not want to switch to a different room nor turn off pressors until family gone Critical care consulted as she is in the ICU receiving pressors for long amount of time Palliative care consulted Other medications and labwork stopped. Will continue current comfort medications for now. Resident Tracking Resident Involvement: Resident Care Provided Care Provided: Adult Hospital Medicine
[2017-05-01] MEDS ORDERED: MoRPHine SULFATE 2 MG/ML CARP IV SCH (13:15)
[2017-05-01] MEDS: MoRPHine SULFATE 2 MG/ML CARP IV SCH ×2 (14:00→17:00)
[2017-05-01] MEDS ORDERED: NOREPINEPHRINE BIT INJ 8 MG in DEXTROSE 5% 500ML 500 ML IV PRN (14:15)
--- NOTE | 2017-05-01 14:27 | Palliative Care Consultation ---
Consultation Date of Consultation: May 01, 2017. Requesting Physician: Dr. Miranda Attending Physician: Dr. Miranda, Dr. Bliss Reason for Consultation: Comfort measures History of Present Illness This 71 year old male patient presented to the ED yesterday with c/o severe abdominal pain. History obtained mostly from record, some from at bedside. He has a medical history of widespread metastatic prostate cancer, chemotherapy discontinued after only two treatments of gemcitabine an cisplatinum due to a worsening functional status and refractory disease. Back in the beginning of March 2017, patient was admitted to the hospital for this metastatic disease, had a left Pleur-x catheter placed. Palliative care was consulted at that time, patient was ready to focus on comfort and understood his disease could not be cured. Patient's , Merlene, however was not ready to initiate hospice care. He was discharged home with home health, eventually being transitioned to hospice care. Apparently he developed this acute abdominal pain at home and EMS was called. En route to the ED he had altered mental status and an episode of v- tach. In the ED patient hypotensive and in atrial fibrillation, later converting to sinus rhythm. He was taken for CT scan of the abd/pelvis which showed widespread metastatic disease and also free air. General surgery, critical care medicine, and cardiothoracic surgery were consulted for suspected gastric perforation. After a discussion with the patient's and family, it was decided patient would be made comfort measures only. He was placed on levophed for the hypotension with the goal of maintaining a blood pressure until other family members could arrive. He was sent to ICU. Today, palliative care consulted. I met with the patient's , Merlene, brother, "Samir" (Adrian), [id number], Star Aguirre PA-C, Stephan Castro PA-C, and a physician learning and development assistant student in room 104. Patient was also present but is obtunded/unresponsive to stimuli, and unable to participate in conversation. Patient's medical conditions were extensively explained and discussed by Star Aguirre. verbalized understanding and stated the patient is comfort measures only and she knows he will pass away. She still wishes to keep the Levophed running because she felt that if it was shut off that she was "throwing him away." The team gave a great deal of support and assurance to her and the family that the patient would only be going through the natural dying process. Education was provided on some of the side effects of Levophed and that typically it is not used in conjunction with "comfort measures only." The again verbalized understanding but is not ready to make a decision-- the Levophed continues to infuse. We discussed pain medication and symptom management as well. The and family were appreciative and denied any further questions/concerns. requested to have monitor on and for patient to not leave this room. Waiting for [id number] and grandson to arrive. Past Medical/Surgical History Medical History: Metastatic prostate CA, mets to lung, liver, abdomen, bone CKD stage II-III HTN Surgical History: Left Pleur-x catheter placement Social History Smoking Status: Former Smoker Marital Status: Housing Status: lives with significant other Occupation Status: retired Review of Systems unable to obtain ROS as patient is obtunded Allergies Coded Allergies: No Known Allergies (Unverified , 04/30/17) Medications Current Inpatient Medications Medications (Trade) Dose Ordered Sig/Gisel Route Start Time Stop Time Status Last Admin Dose Admin Norepinephrine Bitartrate 8 mg/ Dextrose 508 ml @ 0 mls/hr Q0M PRN IV 04/30/17 14:17 05/30/17 14:16 05/01/17 10:06 142 MLS/HR Fentanyl Citrate (Fentanyl Inj) 25 mcg Q1H PRN IV 04/30/17 14:30 05/14/17 14:29 04/30/17 21:59 25 MCG Scopolamine (Transderm-Scop Patch) 1.5 mg Q72H PRN TD 04/30/17 17:00 05/30/17 16:59 Miscellaneous (Remove Transderm-Scop Patch) 1 ea Q72H N/A 05/03/17 17:00 06/02/17 16:59 Miscellaneous Information (Check Scopolamine Patch Placement) 1 ea QS N/A 04/30/17 16:00 05/30/17 15:59 05/01/17 07:52 1 EA Albuterol Sulfate (Ventolin 0.083% 2.5MG/3ML Neb) 2.5 mg Q6R PRN INH 04/30/17 14:45 05/30/17 14:44 Morphine Sulfate (MoRPHine SULFATE INJ) 2 mg Q2H PRN IV 05/01/17 01:00 05/15/17 00:59 05/01/17 12:25 2 MG Lorazepam (Ativan Inj) 1 mg Q2H PRN IV 05/01/17 01:15 05/31/17 01:14 Physical Exam Date Time Temp Pulse Resp B/P (MAP) Pulse Ox O2 Delivery O2 Flow Rate FiO2 05/01/17 11:00 106 13 85/53 90 05/01/17 10:00 102 15 84/50 05/01/17 10:00 102 15 05/01/17 09:00 101 14 85/50 90 05/01/17 08:00 102 13 82/50 90 05/01/17 08:00 102 13 82/50 (61) 05/01/17 08:00 90 Nasal Cannula 4.0 05/01/17 07:02 109 19 86/52 05/01/17 06:02 112 23 91/51 05/01/17 05:02 119 23 92/49 94 05/01/17 04:02 124 26 90/54 92 05/01/17 04:00 92 Nasal Cannula 4.0 05/01/17 03:02 115 24 99/48 92 05/01/17 02:03 121 24 94/54 92 05/01/17 01:02 108 19 87/71 94 05/01/17 00:44 116 25 85/59 95 05/01/17 00:02 110 22 79/63 90 04/30/17 23:59 95 Nasal Cannula 4.0 04/30/17 23:59 36.5 04/30/17 23:02 100 18 100/44 90 04/30/17 22:02 125 27 75/55 97 04/30/17 21:02 133 17 92/54 91 04/30/17 20:32 133 16 89/71 97 04/30/17 20:02 126 20 117/57 100 04/30/17 20:00 99 Nasal Cannula 4.0 04/30/17 20:00 36.3 04/30/17 19:32 118 31 74/50 100 04/30/17 19:02 119 26 67/42 94 04/30/17 19:00 119 26 67/42 (50) 84 04/30/17 18:00 114 28 97/58 (71) 94 04/30/17 17:30 114 26 81/54 (63) 93 04/30/17 17:00 111 28 80/63 (69) 95 04/30/17 16:30 105 19 73/57 (62) 98 04/30/17 16:15 108 17 87/54 (65) 100 04/30/17 16:00 35.8 112 17 73/40 (51) 99 Nasal Cannula 4.0 04/30/17 15:30 102 22 102/56 100 04/30/17 15:00 106 18 103/66 100 Nasal Cannula 4.0 04/30/17 14:30 96 22 98/56 96 BiPAP 4.0 04/30/17 14:12 BiPAP 04/30/17 13:51 98 18 103/59 96 BiPAP 50 General Appearance: no apparent distress, + cachetic, + thin Neck: no JVD Respiratory: no respiratory distress, no accessory muscle use, + pertinent finding (shallow respirations; on 4LNC) Cardiovascular: + tachycardia, + pertinent finding (pedal pulses not palpable. +2 pitting edema to bilateral ankles) Neurologic/Psychiatric: + pertinent finding (obtunded) Skin: + mottled (mottled feet and knees), + pallor Laboratory Results Last 24 Hours Test 04/30/17 23:22 04/30/17 23:30 Bedside Glucose (other) 641 mg/dl 198 mg/dl Assessment & Plan Palliative Performance Scale: 10 % Problem list: Obtundation Abdominal pain (on presentation)/retroperitoneal free air/suspected gastric perforation Hypotension Prostate cancer with widespread metastatic disease to liver, lung, abdomen, bone. Multi-system organ failure Goals of care (Z51.5) Palliative care recommendations: -DNR/DNI as previously discussed. -Patient is comfort measures only. -Levophed does continue to infuse to maintain BP until other family members arrive. still is not sure though if she wants to discontinue or even decrease the levophed. She has not made a decision yet but she understands patient may still on the medication and is okay with that. -Recommend morphine 2mg IV Q2h PRN for comfort, would give if respirations are over 20 or any other signs of pain or distress. If frequent doses are needed, could start continuous infusion. -Has scopolamine patch. Would order atropine 1% oph soln 4 drops SL q2h PRN secretions. -Continue nasal cannula- no respiratory distress at this time. Thank you kindly for this consult. Please contact me with any further palliative care needs.
--- NOTE | 2017-05-01 14:41 | Critical Care Consultation ---
Critical Care Consultation Date of Consultation: May 01, 2017. Attending Physician: Arun Vicente M.D. Reason for Consultation: Titration of Levophed History of Present Illness Attending: Dr. 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 He received two doses of chemotherapy in January of this year and was unable tolerate any further treatment. He is not a surgical candidate. He presented to the hospital for shortness of breath and was found to be extremely hypotensive with a lactic acid of 3.4. The patient does not have a leukocytosis and denies fever. The patient is found to be attended and is unable to participate in interview or examination. The patient's , brother, and [id number] are present and provide back story. The patient currently is on levo fed at 0.6 mcg/per kilogram. He appears in no distress. The patient has seen Dr. Vance in the past and underwent thoracentesis. Pleural effusion reaccumulated and patient underwent Pleurx catheter placement by Dr. Vance. Past Medical/Surgical History Medical Problems: Widely Metastatic adenocarcinoma Pleural effusion Shortness of breath Surgical History: Pleurex catheter Hx Chemotherapy with Cisplatin and Gemcitabine Family History Cancer Heart disease Social History Smoking Status: Former Smoker Smokeless Tobacco Use: No Alcohol Use: none Drug Use: none Marital Status: Housing Status: lives with family Occupation Status: retired Allergies Coded Allergies: No Known Allergies (Unverified , 04/30/17) Home Medications Scheduled Docusate Sodium (Colace), 1 CAP PO BID Home O2 Therapy (Oxygen), 2-4 LITERS NA CONTINOUS Magnesium Oxide (Mag-Ox), 400 MG PO DAILY Metoprolol Tartrate (Lopressor) (Lopressor), 50 MG PO DAILY Prochlorperazine Maleate (Compazine), 1 TAB PO Q6 Sennosides-Docusate Sodium (Stool Softener), PO HS Scheduled PRN Acetaminophen (Tylenol), 500 MG PO Q6 PRN for Pain Diclofenac Sod (Voltaren), 1 APPLN EXT BID PRN for pain Ondansetron Hcl (Zofran), 1-2 TAB PO Q6H PRN for Nausea or Vomiting Oxycodone HCl (Oxycodone HCl), 1-2 MG PO Q6H PRN for Pain Current Inpatient Medications Current Inpatient Medications Medications (Trade) Dose Ordered Sig/Gisel Route Start Time Stop Time Status Last Admin Dose Admin Fentanyl Citrate (Fentanyl Inj) 25 mcg Q1H PRN IV 04/30/17 14:30 05/14/17 14:29 04/30/17 21:59 25 MCG Scopolamine (Transderm-Scop Patch) 1.5 mg Q72H PRN TD 04/30/17 17:00 05/30/17 16:59 Miscellaneous (Remove Transderm-Scop Patch) 1 ea Q72H N/A 05/03/17 17:00 06/02/17 16:59 Miscellaneous Information (Check Scopolamine Patch Placement) 1 ea QS N/A 04/30/17 16:00 05/30/17 15:59 05/01/17 07:52 1 EA Albuterol Sulfate (Ventolin 0.083% 2.5MG/3ML Neb) 2.5 mg Q6R PRN INH 04/30/17 14:45 05/30/17 14:44 Morphine Sulfate (MoRPHine SULFATE INJ) 2 mg Q2H PRN IV 05/01/17 01:00 05/15/17 00:59 05/01/17 12:25 2 MG Lorazepam (Ativan Inj) 1 mg Q2H PRN IV 05/01/17 01:15 05/31/17 01:14 Morphine Sulfate (MoRPHine SULFATE INJ) 1 mg Q3H IV 05/01/17 14:00 05/15/17 13:59 Norepinephrine Bitartrate 8 mg/ Dextrose 508 ml @ 0 mls/hr Q0M PRN IV 05/01/17 14:15 05/30/17 14:16 UNV Review of Systems A total of 12 systems was reviewed and is negative other than as listed above in the HPI Physical Exam Date Time Temp Pulse Resp B/P (MAP) Pulse Ox O2 Delivery O2 Flow Rate FiO2 05/01/17 13:00 105 19 85/50 05/01/17 13:00 105 19 85/50 (62) 05/01/17 12:00 90 Nasal Cannula 4.0 05/01/17 12:00 103 18 84/52 89 05/01/17 12:00 103 18 05/01/17 11:00 106 13 85/53 90 05/01/17 10:00 102 15 84/50 05/01/17 10:00 102 15 05/01/17 09:00 101 14 85/50 90 05/01/17 08:00 102 13 82/50 90 05/01/17 08:00 102 13 82/50 (61) 05/01/17 08:00 90 Nasal Cannula 4.0 05/01/17 07:02 109 19 86/52 05/01/17 06:02 112 23 91/51 05/01/17 05:02 119 23 92/49 94 05/01/17 04:02 124 26 90/54 92 05/01/17 04:00 92 Nasal Cannula 4.0 05/01/17 03:02 115 24 99/48 92 05/01/17 02:03 121 24 94/54 92 05/01/17 01:02 108 19 87/71 94 05/01/17 00:44 116 25 85/59 95 05/01/17 00:02 110 22 79/63 90 04/30/17 23:59 95 Nasal Cannula 4.0 04/30/17 23:59 36.5 04/30/17 23:02 100 18 100/44 90 04/30/17 22:02 125 27 75/55 97 04/30/17 21:02 133 17 92/54 91 04/30/17 20:32 133 16 89/71 97 04/30/17 20:02 126 20 117/57 100 04/30/17 20:00 99 Nasal Cannula 4.0 04/30/17 20:00 36.3 04/30/17 19:32 118 31 74/50 100 04/30/17 19:02 119 26 67/42 94 04/30/17 19:00 119 26 67/42 (50) 84 04/30/17 18:00 114 28 97/58 (71) 94 04/30/17 17:30 114 26 81/54 (63) 93 04/30/17 17:00 111 28 80/63 (69) 95 04/30/17 16:30 105 19 73/57 (62) 98 04/30/17 16:15 108 17 87/54 (65) 100 04/30/17 16:00 35.8 112 17 73/40 (51) 99 Nasal Cannula 4.0 04/30/17 15:30 102 22 102/56 100 04/30/17 15:00 106 18 103/66 100 Nasal Cannula 4.0 04/30/17 14:30 96 22 98/56 96 BiPAP 4.0 Physical Exam: General - NAD Eyes - No icterus, gaze conjugate. Right pupil 2mm left pupil 3mm ENT - Mucosa dry, no lesions or candidiasis. Nasal cannula in place Neck - Supple, No JVD Lungs - No bronchospasm, rales, or rhonchi. decreased globally Heart - Regular, rate controlled Abdomen - Soft, NT, ND, BS present Extremities - B/L LE edema, pedal pulses not palpable, feet are cool, mottled appearance to feet and to knees Neuro - Obtunded Laboratory Results Last 24 Hours Test 04/30/17 23:22 04/30/17 23:30 Bedside Glucose (other) 641 mg/dl 198 mg/dl Diagnostic Results CHEST CTA for AORTIC DISSECTION CT DOSE: 1224.34 mGy.cm HISTORY: Atypical chest pain. TECHNIQUE: Multiaxial CT images of the chest were performed both before and after the intravenous administration of contrast to evaluate the aorta. Maximal intensity projection images were also obtained. COMPARISON STUDY: Outside hospital PET/CT 05/20/2016. FINDINGS: Normal caliber thoracic aorta with no evidence for dissection. Single filling defects seen within a left upper lobe pulmonary vein. The central pulmonary arteries are patent. Scattered foci of gas within the upper abdomen consistent with pneumoperitoneum. Etiology is not clearly identified but could be from the proximal stomach on image 45 of 64. Moderate hiatus hernia. Small bilateral pleural effusions. Right supraclavicular lymphadenopathy with the largest lymph node measuring 5.3 cm. Multiple hypodense lesions within the liver consistent with metastatic disease. Dominant lesion within the hepatic dome measures 7.9 cm. Small amount ascites. Partially visualized right lateral abdominal wall mass. Right anterior chest wall mass surrounding the right second rib cartilage. Destructive soft tissue mass within the manubrium. A 3.5 cm anterior mediastinal soft tissue mass. Borderline enlarged right peritracheal lymph node measuring 12 mm. Body wall edema. Left basilar pleural catheter. Sclerotic lesion within the T11 vertebral body. No pneumothorax. Multiple bilateral pulmonary nodules consistent with metastatic disease. Dominant nodule within the right upper lobe measures 14 mm. IMPRESSION: 1. No evidence for an aortic dissection. 2. The central pulmonary arteries are patent. 3. Small amount of pneumoperitoneum. The exact etiology of the pneumoperitoneum is not clearly identified but could be due to focal perforation within the proximal stomach/hiatus hernia. Recommend endoscopy for further evaluation. 4. Small thrombus identified within the left upper lobe pulmonary vein. 5. Small bilateral pleural effusions. There is a left pleural drainage catheter. 6. Extensive metastatic disease within the chest and abdomen as described above. Electronically signed by: Surjit Ag M.D. 04/30/2017 12:22 PM ADDENDUM Addendum: There is a tiny amount of free intraperitoneal air. There is mild infiltration of the fat surrounding the stomach. There appears to be some air within the gastric wall. It is therefore possible that this is secondary to a gastric perforation. Clinical correlation this regard is advocated. Electronically signed by: Stephen Avalos M.D. 04/30/2017 12:17 PM Assessment & Plan METASTATIC CARCINOMA Comfort care No further treatment per oncology HYPOTENSION Most likely from sepsis from probable perforated viscous Levophed titrated up to 0.6 mcg/kg Titrate Levophed off Discontinue in-room monitors PAIN Morphine PRN Will ad Morphine sulfate 1 mg IV q3h gisel If not well controlled, start MSO4 gtt at 1 mg/hour Monitor clinically PNEUMOMEDIASTINUM Per CT scan Patient is not an operative candidate Comfort care elected by family DVT PROPHYLAXIS N/A Comfort care CCT: 0 mins. Level V inpatient bill. 90 minutes spent in discussion with patients , daughter in law, brother, grandson regarding plan and decision making Thank you for including us in the care of this patient. Please refer to Dr. Mcdonald 's addendum for further recommendations Hide Curer Addendum: The patient's care was discussed on multidisciplinary rounds and consultation performed by Star Aguirre PA-C as patient was still on levophed. The levophed has been wean off over the course of the day after Star spent over an hour working with the family to more clearly establish goals of care. The patient is comfortable and becoming more bradycardic. Will provide support if needed.
--- NOTE | 2017-05-01 17:23 | Progress Note ---
Progress Note Date of Service May 01, 2017. 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 On exam he was unresponsive without palpable pulses. Breath sounds and heart tones absent. He was pronounced at 1915. Family was at the bedside. Support provided.
--- NOTE | 2017-05-01 17:54 | Progress Note ---
Progress Note Date of Service May 01, 2017. 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 Please disregard.
--- NOTE | 2017-05-01 19:20 | Death Summary ---
Summary of Admission Date Apr 30, 2017 at 14:37 Date & Time of May 01, 2017. 1715 Cause of metastatic poorly differentiated carcinoma. (more acutely he presented with appearance of perforated upper GI viscous, peritonitis/sepsis picture almost certainly related to cancer. with this deterioration, it was determined to make him comfort measures, he remained comfortable and passed peacefully on 05/01/17, with family present at his side.) Hospital Course see above
== END 2017-05-01 20:10 | disposition expired | DRG 871 ==
LOC: EDBD 11:05 → C.EDB 11:08 → C.MSICU 14:37 → EDBEDREQ 14:59 → ENRESERV 15:06
PROVIDERS: ADMIT Internal Medicine; ATTEND Internal Medicine
PROC: 06HN33Z Insertion of Infusion Device into Left Femoral Vein, Percutaneous Approach (ICD-10-PCS; principal; 2017-04-30)
DX: A41.9 Sepsis, unspecified organism (principal); K63.1 Perforation of intestine (nontraumatic); C78.00 Secondary malignant neoplasm of unspecified lung; C78.7 Secondary malignant neoplasm of liver and intrahepatic bile duct; J90 Pleural effusion, not elsewhere classified; R18.8 Other ascites; J98.2 Interstitial emphysema; C61 Malignant neoplasm of prostate; N18.3 Chronic kidney disease, stage 3 (moderate); I12.9 Hypertensive chronic kidney disease with stage 1 through stage 4 chronic kidney disease, or unspecified chronic kidney disease; Z51.5 Encounter for palliative care; Z66 Do not resuscitate; Z79.899 Other long term (current) drug therapy; Z87.891 Personal history of nicotine dependence